=== PATIENT | female | born 1980 | race Caucasian/White ===

== ENCOUNTER 2021-05-23 09:03 | Outpatient (REF) | payer OTHER, SELFPAY ==
--- NOTE | ~2021-05-23 | XR_ITS ---
EXAMINATION: XR FOOT, RIGHT XR FOOT, LEFT CLINICAL INFORMATION: Pain. Lupus. COMPARISON: Right and left foot radiographs dated 09/09/2019. TECHNIQUE: AP, oblique, and lateral views of the right and left foot. FINDINGS: Right foot: No acute fracture or dislocation. No significant joint space narrowing. Small marginal osteophytes at the dorsal aspect of the talonavicular joint. No new osseous erosion. Tiny plantar and dorsal calcaneal enthesophytes. Left foot: No acute fracture or dislocation. No significant joint space narrowing. No marginal osteophytes. No osseous erosion. Plantar and dorsal calcaneal enthesophytes. XR/XR foot RT min 3V IMPRESSION: Right foot: No new osseous erosion. 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 Small plantar and dorsal calcaneal spurs, unchanged. Left foot: No new osseous erosion. Small plantar and dorsal calcaneal spurs, unchanged.
--- NOTE | ~2021-05-23 | XR_ITS ---
EXAMINATION: XR FOOT, RIGHT XR FOOT, LEFT CLINICAL INFORMATION: Pain. Lupus. COMPARISON: Right and left foot radiographs dated 09/09/2019. TECHNIQUE: AP, oblique, and lateral views of the right and left foot. FINDINGS: Right foot: No acute fracture or dislocation. No significant joint space narrowing. Small marginal osteophytes at the dorsal aspect of the talonavicular joint. No new osseous erosion. Tiny plantar and dorsal calcaneal enthesophytes. Left foot: No acute fracture or dislocation. No significant joint space narrowing. No marginal osteophytes. No osseous erosion. Plantar and dorsal calcaneal enthesophytes. XR/XR foot LT min 3V IMPRESSION: Right foot: No new osseous erosion. 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 Small plantar and dorsal calcaneal spurs, unchanged. Left foot: No new osseous erosion. Small plantar and dorsal calcaneal spurs, unchanged.
--- NOTE | ~2021-05-23 | XR_ITS ---
EXAMINATION: XR HAND, RIGHT XR HAND, LEFT CLINICAL INFORMATION: Right and left hand pain. Lupus. COMPARISON: Bilateral hand and wrist radiographs dated 09/09/2019. TECHNIQUE: AP, oblique, and lateral views of the right and left hand. FINDINGS: Right hand: Periarticular osteopenia is redemonstrated. No acute fracture or dislocation. Attenuation and irregularity of the ulnar styloid with a probable erosion, unchanged. Small marginal osteophytes redemonstrated at the triscaphe and 1st carpometacarpal joints with a probable degenerative cyst within the capitate, unchanged. Joint space narrowing with tiny marginal osteophytes redemonstrated throughout the metacarpophalangeal and interphalangeal joints, similar when compared to the prior examination. Flexion of the 5th proximal interphalangeal joint and extension of the 5th distal interphalangeal joint appears unchanged. No new osseous erosion. Left hand: Periarticular osteopenia is redemonstrated. No acute fracture or dislocation. Mild joint space narrowing with tiny marginal osteophytes at the triscaphe and 1st carpometacarpal joints as well as scattered throughout the metacarpophalangeal and interphalangeal joints, not significantly changed. No new osseous erosion. XR/XR hand LT 2V IMPRESSION: Right hand: No new osseous erosion. Erosion redemonstrated at the ulnar styloid. Fifth finger boutonniere deformity, unchanged. Mild degenerative arthritis at the triscaphe and 1st carpometacarpal joint as well as scattered throughout the metacarpophalangeal and interphalangeal joints, unchanged. Left hand: No new osseous erosion. Mild degenerative arthritis at the triscaphe and 1st carpometacarpal joints as well as scattered throughout the metacarpophalangeal and interphalangeal joints, unchanged.
--- NOTE | ~2021-05-23 | XR_ITS ---
EXAMINATION: XR HAND, RIGHT XR HAND, LEFT CLINICAL INFORMATION: Right and left hand pain. Lupus. COMPARISON: Bilateral hand and wrist radiographs dated 09/09/2019. TECHNIQUE: AP, oblique, and lateral views of the right and left hand. FINDINGS: Right hand: Periarticular osteopenia is redemonstrated. No acute fracture or dislocation. Attenuation and irregularity of the ulnar styloid with a probable erosion, unchanged. Small marginal osteophytes redemonstrated at the triscaphe and 1st carpometacarpal joints with a probable degenerative cyst within the capitate, unchanged. Joint space narrowing with tiny marginal osteophytes redemonstrated throughout the metacarpophalangeal and interphalangeal joints, similar when compared to the prior examination. Flexion of the 5th proximal interphalangeal joint and extension of the 5th distal interphalangeal joint appears unchanged. No new osseous erosion. Left hand: Periarticular osteopenia is redemonstrated. No acute fracture or dislocation. Mild joint space narrowing with tiny marginal osteophytes at the triscaphe and 1st carpometacarpal joints as well as scattered throughout the metacarpophalangeal and interphalangeal joints, not significantly changed. No new osseous erosion. XR/XR hand RT 2V IMPRESSION: Right hand: No new osseous erosion. Erosion redemonstrated at the ulnar styloid. Fifth finger boutonniere deformity, unchanged. Mild degenerative arthritis at the triscaphe and 1st carpometacarpal joint as well as scattered throughout the metacarpophalangeal and interphalangeal joints, unchanged. Left hand: No new osseous erosion. Mild degenerative arthritis at the triscaphe and 1st carpometacarpal joints as well as scattered throughout the metacarpophalangeal and interphalangeal joints, unchanged.
[2021-05-23 10:29] LABS: MANUAL DIFF FLAG NO
[2021-05-23 11:22] LABS: Basophils Percent Auto 0.6 % (0-2); Eosinophils Absolute Auto 0.2 X10*3/uL (0.0-0.4); Eosinophils Percent Auto 2.1 % (0-4); Hemoglobin 14.1 g/dl (12.0-16.0); Imm Gran Abs Auto 0.04 X10*3/uL (0.00-0.03); Imm Gran Pct Auto 0.6 % (0.0-0.4); Lymphocytes Absolute Auto 1.9 X10*3/uL (1.2-4.9); Mean Corpuscular HGB Conc 34.4 g/dl (31.0-35.0); Mean Corpuscular Hemoglobin 29.9 pg (27.0-33.0); Mean Corpuscular Volume 86.9 fL (80.0-98.0); Mean Platelet Volume 9.6 fL (9.4-12.3); Monocytes Absolute Auto 0.7 X10*3/uL (0.1-1.2); Monocytes Percent Auto 9.8 % (2-11); Neutrophils Absolute Auto 4.3 x10*3/uL (2.0-8.3); Neutrophils Percent Auto 60.9 % (45-73); Platelet Count 301 X10*3/uL (160-400); Red Blood Count 4.72 X10*6/uL (4.20-5.50); Red Cell Distribution Width 12.5 % (11.0-16.0); White Blood Count 7.1 X10*3/uL (4.8-10.8)
[2021-05-23 12:09] LABS: Alanine Aminotransferase 111 U/L (0-31); Alkaline Phosphatase 67 U/L (39-117); Anion Gap 13 (12-20); Aspartate Amino Transferase 45 U/L (5-31); Bilirubin Total 0.5 mg/dL (0.0-1.0); Blood Urea Nitrogen 7 mg/dL (9-16); C Reactive Protein 0.46 mg/dL (< or = 0.50); Calcium 9.8 mg/dL (8.4-10.2); Carbon Dioxide 25 mmol/L (22-29); Chloride 106 mmol/L (96-108); Estimated Glomerular Filt Rate > 60; Glucose Random 93 mg/dL (60-115); Potassium 4.1 mmol/L (3.3-5.1); Rheumatoid Factor < 15.0 IU/mL (<15.0); Sodium 140 mmol/L (135-145); Total Protein 7.8 g/dL (6.5-8.0)
[2021-05-23 12:20] LABS: Erythrocyte Sedimentation Rate 7 MM/HR (0-20)
[2021-05-25 16:56] LABS: Cyclic Citrullinated Peptide <16 UNITS
== END 2021-05-23 09:04 | disposition home or self-care (01) ==
LOC: HO.XRAY 09:03
PROVIDERS: PCP Nurse Practitioner Family; Visit Provider Internal Medicine Rheumatology
DX: M79.641 Pain in right hand (principal); M79.642 Pain in left hand; M79.671 Pain in right foot; M79.672 Pain in left foot; M25.50 Pain in unspecified joint; Z79.899 Other long term (current) drug therapy; Z87.891 Personal history of nicotine dependence
CPT/HCPCS: 36415; 73120; 73630; 80053; 85025; 85652; 86140; 86200; 86431

== ENCOUNTER → 2021-06-20 08:46 | Outpatient (BNVA) | payer OTHER, SELFPAY | PROVIDERS: PCP Nurse Practitioner Family; Visit Provider Internal Medicine Rheumatology | DX: M79.671 Pain in right foot (principal); M79.672 Pain in left foot; M19.049 Primary osteoarthritis, unspecified hand; Z79.899 Other long term (current) drug therapy | CPT/HCPCS: 99212 ==

== ENCOUNTER → 2021-09-19 08:39 | Outpatient (BNVA) | payer OTHER, SELFPAY | PROVIDERS: PCP Nurse Practitioner Family; Visit Provider Internal Medicine Rheumatology | DX: M79.671 Pain in right foot (principal); M79.672 Pain in left foot; M19.049 Primary osteoarthritis, unspecified hand; M79.2 Neuralgia and neuritis, unspecified; Z79.899 Other long term (current) drug therapy | CPT/HCPCS: 99212 ==

== ENCOUNTER 2022-01-18 12:13 | Emergency (ER) | payer OTHER, SELFPAY ==
--- NOTE | ~2022-01-18 | XR_ITS ---
EXAMINATION: XR CHEST CLINICAL INFORMATION: Chest pain. COMPARISON: 07/22/2018 chest radiograph. TECHNIQUE: Frontal view of the chest was obtained. FINDINGS: There is mild elevation of the right hemidiaphragm with mild blunting of the right costophrenic angle. The lungs are otherwise clear. The heart and mediastinal structures are unremarkable. XR/XR chest 1V IMPRESSION: Chronic bibasilar changes without significant change. No acute cardiopulmonary process.
[2022-01-18 12:18] VITALS: BP 180/73; PULSE 85; RESP 20; TEMP 36.8; O2SAT 98; BMI 31.8
--- NOTE | 2022-01-18 12:25 | ECG_ITS ---
Test Reason : Chest Pain Blood Pressure : / mmHG Vent. Rate : 076 BPM Atrial Rate : 076 BPM P-R Int : 166 ms QRS Dur : 084 ms QT Int : 410 ms P-R-T Axes : 000 003 075 degrees QTc Int : 461 ms Normal sinus rhythm Inferior infarct , age undetermined RSR' or QR pattern in V1 suggests right ventricular conduction delay Nonspecific T wave abnormality Inferior leads Abnormal ECG No previous ECGs available Referred By: Nidhi Frank Electronically Signed By:MUSTAPHA SALEEM MD
[2022-01-18 12:28] VITALS: BP 159/73; PULSE 88
[2022-01-18 12:29] VITALS: BP 160/89; PULSE 88
[2022-01-18 12:31] VITALS: BP 144/90; PULSE 100
[2022-01-18 12:32] VITALS: BP 141/90; PULSE 87; RESP 20; TEMP 37.2; O2SAT 99
[2022-01-18 12:49] LABS: MANUAL DIFF FLAG NO
[2022-01-18 12:50] LABS: Basophils Absolute Auto 0.1 X10*3/uL (0.0-0.2); Basophils Percent Auto 0.6 % (0-2); Eosinophils Absolute Auto 0.1 X10*3/uL (0.0-0.4); Eosinophils Percent Auto 1.4 % (0-4); Hematocrit 42.4 % (37.0-47.0); Hemoglobin 14.4 g/dl (12.0-16.0); Imm Gran Abs Auto 0.04 X10*3/uL (0.00-0.03); Imm Gran Pct Auto 0.5 % (0.0-0.4); Mean Corpuscular Hemoglobin 28.2 pg (27.0-33.0); Mean Platelet Volume 9.7 fL (9.4-12.3); Monocytes Absolute Auto 0.8 X10*3/uL (0.1-1.2); Monocytes Percent Auto 9.5 % (2-11); Neutrophils Absolute Auto 5.1 x10*3/uL (2.0-8.3); Platelet Count 330 X10*3/uL (160-400); Red Blood Count 5.11 X10*6/uL (4.20-5.50); Red Cell Distribution Width 12.5 % (11.0-16.0); White Blood Count 8.1 X10*3/uL (4.8-10.8)
--- NOTE | 2022-01-18 12:58 | ED.GENADULT ---
HPI - General Adult General Chief complaint: General Medical Stated complaint: Dizzy Lightheaded Sent By PCP Time Seen by Provider: 01/18/22 12:25 Source: patient Mode of arrival: ambulatory History of Present Illness HPI narrative: 41-year-old female who denies any recent medication changes and states that she has been having some lightheadedness with mild burning mid sternal chest pain/upper abdominal pain as well as headaches intermittently for the past 3 weeks but the episodes are ?getting closer?. She denies any smoking history, OCPs, recent travel, calf pain/swelling, shortness of breath, fevers/chills. In addition, she denies any urinary pain/burning/frequency. Related Data Home Medications Medication Instructions Recorded Confirmed albuterol sulfate 90 mcg/actuation 1 inh inhalation Q4-6H PRN 05/23/21 09/19/21 breath activated powder inhaler budesonide-formoterol HFA 160 2 puff inhalation BID PRN 05/23/21 09/19/21 mcg-4.5 mcg/actuation aerosol inhaler (Symbicort) ipratropium 0.5 mg-albuterol 3 mg 3 ml inhalation Q6-8H PRN 05/23/21 09/19/21 (2.5 mg base)/3 mL nebulization soln levothyroxine 75 mcg capsule 75 mcg PO DAILY 05/23/21 09/19/21 acetaminophen 500 mg tablet 1,000 mg PO TID PRN 09/19/21 09/19/21 (Tylenol Extra Strength) Previous Rx's Medication Instructions Recorded buspirone 7.5 mg tablet 7.5 mg PO TID 30 days #90 tabs 08/30/21 gabapentin 100 mg capsule 100 - 300 mg PO BEDTIME PRN pain 09/19/21 #90 caps naproxen 250 mg tablet 250 - 500 mg PO BID #120 tabs 09/19/21 bupropion HCl 150 mg 24 hr tablet, 150 mg PO QAM 90 days #90 tabs 09/26/21 extended release bupropion HCl 300 mg 24 hr tablet, 300 mg PO QAM 30 days #30 tabs 10/27/21 extended release Allergies Allergy/AdvReac Type Severity Reaction Status Date / Time bee pollen [BEE STINGS] Allergy Severe ANAPHYLAXIS Unverified 09/19/21 08:48 Review of Systems Review of Systems: Pertinent positives and negatives as stated in HPI 10 point review of systems is otherwise negative. [facility] Past Medical History Source: nursing notes reviewed Medical History Asthma Depressed Elevation of levels of liver transaminase levels Osteoarthritis, hand Social History Social History Household Members: Spouse Housing: House Do you presently have visiting nurse or other home services: No Alcohol intake: never Patient Tobacco Use Status: Former Tobacco user Tobacco use type: Cigarette Years Smoked: Quit 7 years e-Cigarette/Vaping Use: Former Use Advance Directives: No Advance Directives Information Provided: Yes service: No Current occupational status: employed Current occupation: [employer] Physical Exam ED Vital Signs: Vital Signs - 24 hr 01/18/22 12:18 01/18/22 12:28 01/18/22 12:29 Temperature 98.2 F Pulse Rate 85 88 88 Respiratory Rate 20 Blood Pressure 180/73 H 159/73 H 160/89 H Pulse Oximetry 98 Oxygen Delivery Method Room Air 01/18/22 12:31 01/18/22 12:32 01/18/22 14:08 Temperature 98.9 F 98.8 F Pulse Rate 100 87 78 Respiratory Rate 20 20 Blood Pressure 144/90 H 141/90 H 140/85 H Pulse Oximetry 99 99 Oxygen Delivery Method Room Air Room Air BMI result Body Mass Index 31.8 VITAL SIGNS: Reviewed. GENERAL: Well developed, well nourished, in no acute distress. HEAD: Normocephalic/atraumatic EYES: PERRLA, EOMI EARS: Ext canals without abnormality OROPHARYNX: no oral lesions noted, posterior pharynx clear LUNGS: Normal breath sounds, no tachypnea/wheeze/rhonchi/rales. No adventitious sounds or accessory muscle use. SpO2<99> CARDIOVASCULAR: Regular rate and rhythm without noted murmurs ABDOMEN: Soft, non-tender, non-distended with bowel sounds. MUSCULOSKELETAL: No tenderness, deformities, or effusions noted on gross inspection. EXTREMITIES: No cyanosis, clubbing or edema. SKIN: Inspection of the skin reveals no rashes NEUROLOGIC: Alert and oriented x 4. Strength and sensation to light touch were grossly intact x 4. Course Course Course Narrative: 41-year-old female with history and clinical presentation most suspicious for possible GERD/acid reflux but will obtain basic labs/orthostatics/EKG. Patient is otherwise PERC negative. Review of all investigations otherwise negative for acute findings and suspect patient may have been mildly dehydrated for unknown reasons, no evidence to suggest cardiac ischemia, pneumonia and on re-evaluation patient is feeling better. She was instructed to follow-up with her primary care provider. Medications Administered Discontinued Medications Generic Name Dose Route Start Last Admin Trade Name Freq PRN Reason Stop Dose Admin Sodium Chloride 1,000 mls @ 999 mls/hr 01/18/22 13:15 01/18/22 13:15 Ns IV 01/18/22 14:15 999 mls/hr .Q1H1M CORNELIUS Administration Medical Decision Making Lab Data Result diagrams: 01/18/22 12:43 01/18/22 13:15 Labs: Lab Results 01/18/22 01/18/22 01/18/22 Range/Units 12:43 12:43 13:15 WBC 8.1 (4.8-10.8) X10*3/uL RBC 5.11 (4.20-5.50) X10*6/uL Hgb 14.4 (12.0-16.0) g/dl Hct 42.4 (37.0-47.0) % MCV 83.0 (80.0-98.0) fL MCH 28.2 (27.0-33.0) pg MCHC 34.0 (31.0-35.0) g/dl RDW 12.5 (11.0-16.0) % Plt Count 330 (160-400) X10*3/uL MPV 9.7 (9.4-12.3) fL Immature Gran % (Auto) 0.5 H (0.0-0.4) % Neut % (Auto) 63.0 (45-73) % Lymph % (Auto) 25.0 (20-40) % Villalba % (Auto) 9.5 (2-11) % Eos % (Auto) 1.4 (0-4) % Baso % (Auto) 0.6 (0-2) % Lymph # (Auto) 2.0 (1.2-4.9) X10*3/uL Villalba # (Auto) 0.8 (0.1-1.2) X10*3/uL Eos # (Auto) 0.1 (0.0-0.4) X10*3/uL Baso # (Auto) 0.1 (0.0-0.2) X10*3/uL Abs Immat Gran (auto) 0.04 H (0.00-0.03) X10*3/uL Absolute Neuts (auto) 5.1 (2.0-8.3) x10*3/uL Absolute Nucleated RBC 0.000 (0.0-0.012) X10*3/uL Nucleated RBC % (auto) 0.0 (0.0-0.2) /100WBC Sodium 141 (135-145) mmol/L Potassium 3.9 (3.3-5.1) mmol/L Chloride 106 (96-108) mmol/L Carbon Dioxide 23 (22-29) mmol/L Anion Gap 16 (12-20) BUN 11 D (9-16) mg/dL Creatinine 0.83 (0.5-1.4) mg/dL Estim Creat Clear Calc 92.1 Estimated GFR > 60 Random Glucose 85 (60-115) mg/dL Calcium 9.7 (8.4-10.2) mg/dL Total Bilirubin 0.5 (0.0-1.0) mg/dL AST 16 D (5-31) U/L ALT 23 (0-31) U/L Alkaline Phosphatase 59 (39-117) U/L Troponin I High Sens < 3.5 (<3.5-17.0) ng/L Total Protein 7.8 (6.5-8.0) g/dL Albumin 5.1 H (3.5-5.0) g/dL Urine Color Urine Appearance Urine pH (5.0-9.0) Ur Specific Vernal (1.005-1.025) Urine Protein (Neg-Trace) mg/dL Urine Glucose (UA) (Negative) mg/dL Urine Ketones (Negative) mg/dL Urine Blood (Negative) Urine Nitrite (Negative) Ur Leukocyte Esterase (Negative) Urine RBC (0-2) /HPF Urine WBC (0-5) /HPF Ur Squamous Epith Cells (0-2) /HPF Urine Bacteria (None Seen) Hyaline Casts (0-2) /LPF 01/18/22 Range/Units 14:13 WBC (4.8-10.8) X10*3/uL RBC (4.20-5.50) X10*6/uL Hgb (12.0-16.0) g/dl Hct (37.0-47.0) % MCV (80.0-98.0) fL MCH (27.0-33.0) pg MCHC (31.0-35.0) g/dl RDW (11.0-16.0) % Plt Count (160-400) X10*3/uL MPV (9.4-12.3) fL Immature Gran % (Auto) (0.0-0.4) % Neut % (Auto) (45-73) % Lymph % (Auto) (20-40) % Villalba % (Auto) (2-11) % Eos % (Auto) (0-4) % Baso % (Auto) (0-2) % Lymph # (Auto) (1.2-4.9) X10*3/uL Villalba # (Auto) (0.1-1.2) X10*3/uL Eos # (Auto) (0.0-0.4) X10*3/uL Baso # (Auto) (0.0-0.2) X10*3/uL Abs Immat Gran (auto) (0.00-0.03) X10*3/uL Absolute Neuts (auto) (2.0-8.3) x10*3/uL Absolute Nucleated RBC (0.0-0.012) X10*3/uL Nucleated RBC % (auto) (0.0-0.2) /100WBC Sodium (135-145) mmol/L Potassium (3.3-5.1) mmol/L Chloride (96-108) mmol/L Carbon Dioxide (22-29) mmol/L Anion Gap (12-20) BUN (9-16) mg/dL Creatinine (0.5-1.4) mg/dL Estim Creat Clear Calc Estimated GFR Random Glucose (60-115) mg/dL Calcium (8.4-10.2) mg/dL Total Bilirubin (0.0-1.0) mg/dL AST (5-31) U/L ALT (0-31) U/L Alkaline Phosphatase (39-117) U/L Troponin I High Sens (<3.5-17.0) ng/L Total Protein (6.5-8.0) g/dL Albumin (3.5-5.0) g/dL Urine Color Yellow Urine Appearance Clear Urine pH 6.5 (5.0-9.0) Ur Specific Vernal 1.010 (1.005-1.025) Urine Protein Negative (Neg-Trace) mg/dL Urine Glucose (UA) Negative (Negative) mg/dL Urine Ketones Negative (Negative) mg/dL Urine Blood Negative (Negative) Urine Nitrite Negative (Negative) Ur Leukocyte Esterase Small (1+) H (Negative) Urine RBC 3-5 H (0-2) /HPF Urine WBC 0-5 (0-5) /HPF Ur Squamous Epith Cells 0-2 (0-2) /HPF Urine Bacteria None Seen (None Seen) Hyaline Casts 0-2 (0-2) /LPF ECG Data Attestation: I personally reviewed and interpreted this ECG as follows: Prior ECG tracings: not available for review Interpretation: Sinus rhythm, HR-76, no STEMI, VT/QRS/QTC are within normal limits. Discharge Plan Discharge Clinical Impression: Atypical chest pain, Acid reflux Patient Disposition: Home, Self-Care Instructions: Diet for Stomach Ulcers and Gastritis (ED), Indigestion (ED), Gastroesophageal Reflux Disease (ED) Additional Instructions: 1. Resume all home medications as prescribed. 2. Please review dietary recommendations as listed in your discharge informational packet. 3. Recommend initiating [id number] acid reduction medication. 4. Follow-up with your primary care provider in the next 1-2 days for re-evaluation further outpatient management. Return to the ER for worsening symptoms. Prescriptions: No Action buspirone 7.5 mg tablet 7.5 mg PO TID 30 Days Qty: 90 1RF bupropion HCl 150 mg tablet extended release 24 hr 150 mg PO QAM 90 Days Qty: 90 0RF bupropion HCl 300 mg tablet extended release 24 hr 300 mg PO QAM 30 Days Qty: 30 2RF levothyroxine 75 mcg capsule 75 mcg PO DAILY albuterol sulfate 90 mcg/actuation aerosol powdr breath activated 1 inh inhalation Q4-6H PRN budesonide-formoterol [Symbicort] 160-4.5 mcg/actuation HFA aerosol inhaler 2 puff inhalation BID PRN ipratropium-albuterol 0.5 mg-3 mg(2.5 mg base)/3 mL solution for nebulization 3 ml inhalation Q6-8H PRN acetaminophen [Tylenol Extra Strength] 500 mg tablet 1,000 mg PO TID PRN naproxen 250 mg tablet 250 - 500 mg PO BID Qty: 120 4RF Rx Instructions: 1-2 tab twice a day with food gabapentin 100 mg capsule 100 - 300 mg PO BEDTIME PRN (Reason: pain) Qty: 90 4RF
[2022-01-18 13:13] LABS: Troponin-I High Sensitivity < 3.5 ng/L (<3.5-17.0)
[2022-01-18] MEDS: 0.9 % Sodium Chloride 1,000 ML 999 ML IV (13:15)
[2022-01-18 13:42] LABS: Alanine Aminotransferase 23 U/L (0-31); Albumin Level 5.1 g/dL (3.5-5.0); Alkaline Phosphatase 59 U/L (39-117); Anion Gap 16 (12-20); Aspartate Amino Transferase 16 U/L (5-31); Bilirubin Total 0.5 mg/dL (0.0-1.0); Blood Urea Nitrogen 11 mg/dL (9-16); Calcium 9.7 mg/dL (8.4-10.2); Carbon Dioxide 23 mmol/L (22-29); Chloride 106 mmol/L (96-108); Creatinine Clr Calc Pharmacy 92.1; Estimated Glomerular Filt Rate > 60; Glucose Random 85 mg/dL (60-115); Potassium 3.9 mmol/L (3.3-5.1); Sodium 141 mmol/L (135-145); Total Protein 7.8 g/dL (6.5-8.0)
[2022-01-18 14:08] VITALS: BP 140/85; PULSE 78; RESP 20; TEMP 37.1; O2SAT 99
[2022-01-18 14:23] LABS: Appearance Urine Clear; Color Urine Yellow; Glucose Urine UA Negative (Negative); Leukocyte Esterase Urine Small (1+) (Negative); Nitrite Urine Negative (Negative); PH 6.5 (5.0-9.0); UMIC TRIGGER UACC YES; Urine Blood Negative (Negative); Urine Ketones Negative (Negative); Urine Protein Negative (Neg-Trace)
[2022-01-18 14:36] LABS: Bacteria Urine None Seen (None Seen); Hyaline Casts Urine 0-2 /LPF (0-2); Squamous Epithelial Cell Urine 0-2 /HPF (0-2); UACC Culture Trigger YES; WBC Urine 0-5 /HPF (0-5)
== END 2022-01-18 15:10 | disposition home or self-care (01) ==
PROVIDERS: Emergency Provider Student in an Organized Health Care Education/Training Program; PCP Nurse Practitioner Family
DX: K21.9 Gastro-esophageal reflux disease without esophagitis (principal); R07.89 Other chest pain; R42 Dizziness and giddiness; R10.10 Upper abdominal pain, unspecified; Z87.891 Personal history of nicotine dependence; Z79.899 Other long term (current) drug therapy
CPT/HCPCS: 36415; 71045; 80053; 81001; 84484; 85025; 87086; 93005; 99283; 99284

== ENCOUNTER → 2022-02-22 08:39 | Outpatient (BNVA) | payer OTHER, SELFPAY | PROVIDERS: PCP Nurse Practitioner Family; Visit Provider Internal Medicine Rheumatology | DX: M19.041 Primary osteoarthritis, right hand (principal); M19.042 Primary osteoarthritis, left hand; M65.9 Synovitis and tenosynovitis, unspecified; M79.2 Neuralgia and neuritis, unspecified; Z79.1 Long term (current) use of non-steroidal anti-inflammatories (NSAID) | CPT/HCPCS: 99212 ==

== ENCOUNTER 2022-09-14 09:12 | Outpatient (AMB) | payer OTHER, SELFPAY ==
[2022-09-14 09:24] VITALS: BP 134/80; PULSE 67; RESP 12; TEMP 36.4; O2SAT 99; BMI 30.7
--- NOTE | 2022-09-14 09:24 | MHC.PC.OV ---
Vital Signs 09/14/22 09:24 Height 5 ft 3 in Weight 173 lb 6 oz BMI 30.7 BP 134/80 Blood Pressure Location Lt brachial Position Sitting Respiration 12 Pulse 67 Pulse Source Pulse Oximeter Temp 97.6 F Temp Source Temporal Artery Scan Pulse Oximetry (%) 99 Oxygen Delivery Method Room Air Intake Visit Reasons: PE, [facility] Manager Generation Required: No Accompanied by: Self / Same As Patient Allergies bee pollen [BEE STINGS] Allergy (Severe, Verified 09/14/22 09:56) ANAPHYLAXIS animal dander Allergy (Intermediate, Verified 09/14/22 09:56) Cough Medication List - Last Reconciled 09/14/22 by Guillaume Sadler CNP acetaminophen (Tylenol Extra Strength) 1,000 mg PO TID PRN albuterol sulfate 90 mcg/actuation 1 inh inhalation Q4-6H PRN benralizumab (Fasenra Pen) mg subcut budesonide-formoterol 160-4.5 mcg/actuation (Symbicort) 2 puffs inhalation BID PRN bupropion HCl 150 mg PO QAM bupropion HCl 300 mg PO QAM 30 days buspirone 7.5 mg PO TID 30 days gabapentin one in AM and 3 at night; ipratropium-albuterol 0.5 mg-3 mg(2.5 mg base)/3 mL 3 mL inhalation Q6-8H PRN levothyroxine 75 mcg PO DAILY montelukast 10 mg PO DAILY naproxen 250 - 500 mg (1 - 2 x 250 mg) PO BID tiotropium bromide 1.25 mcg/actuation (Spiriva Respimat) 2 puffs inhalation DAILY Tobacco use date assessed: 09/14/22 Dental Screening Dental Screen Date: 09/14/22 Did you have a dental visit in the last 12 months?: Yes Did you have a dental problem in the last 6 months where you did not have access to dental care?: No Was dental information given to patient?: Patient has dentist HPI HPI Comments History of Present Illness Details 42-year-old female presents to [facility]. She is a transfer from [facility] whom she notes she last saw 3 years ago. She has PMH significant for asthma, hypothyroidism, anxiety, and depression. She is on Bupropion and Buspirone with some improvements of her anxiety and depression symptoms. She reports frequent anxiety. She notes that she recently started running on the treadmill and walking her dog. She reports painless lumps to her right bicep and forearm, and lump to left jimenez which is tender to palpation. The lumps have been present for several years and increase in size. She was followed by a therapist but has not had a therapist for the past 1 year. She is followed by pulmonology. Her last visit was 1 month ago. No acute symptoms today. [facility] Medical History Asthma Depressed Elevation of levels of liver transaminase levels Laceration of liver Osteoarthritis, hand Surgical History (Updated 09/14/22 @ 09:38 by Madia Garcia MA) Previous section Family History Mother Cirrhosis of liver Paternal Grandfather Pre-diabetes Social History Household Members: Spouse Housing: House Do you presently have visiting nurse or other home services: No 75 years or older and lives alone: No Alcohol intake: never Patient Tobacco Use Status: Former Tobacco user Tobacco use type: Cigarette Years Smoked: Quit 10 years e-Cigarette/Vaping Use: Former Use service: No Current occupational status: employed 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 1. Little interest or pleasure in doing things: more than half the days 2. Feeling down, depressed, or hopeless: more than half the days 3. Trouble falling or staying asleep, or sleeping too much: several days 4. Feeling tired or having little energy: nearly every day 5. Poor appetite or overeating: nearly every day 6. Feeling bad about yourself - or that you are a failure or have let yourself or your family down: more than half the days 7. Trouble concentrating on things, such as reading the newspaper or watching television: more than half the days 8. Moving or speaking so slowly that other people could have noticed. Or the opposite - being so fidgety or restless that you have been moving around a lot more than usual: more than half the days 9. Thoughts that you would be better off or of hurting yourself in some way: not at all Total score: 17 Depression Screening Interpretation: Positive Depression Screening Follow-up: Existing condition and In treatment Source: Developed by Drs. Anish Alex, Ashleigh Dow, Jeremy Davis and colleagues, with an educational diego from [employer]. Thrive Questionnaire Date Thrive assessed: 09/14/22 I am a: Patient What is your living situation today?: I have a steady place to live Within the past 12 months, did the food you bought not last and you didn't have the money to get more?: Never true Within the past 12 months, did you worry whether your food would run out before you got money to buy more?: Never true Do you have trouble paying for medicines?: No Do you have trouble getting transportation to medical appointments?: No Do you have trouble paying your heating and electricity bill?: No Do you have trouble taking care of your child, family member or friend?: No Do you have trouble with day-to-day activities such as bathing, preparing meals, shopping, managing finances, etc.?: No Are you currently unemployed and looking for a job?: No Are you interested in more education?: Yes Please select the resources that you would like help with: Education Currently or been in a relationship where the following occur: no concerns reported AUDIT C Alcohol Use Questionnaire (AUDIT-C) 1. How often do you have a drink containing alcohol?: Monthly or less 2. How many drinks containing alcohol do you have on a typical day when you are drinking?: 1 or 2 3. How often do you have six or more drinks on one occasion?: Never Total Score: 1 KARLI-7 AMB Questionnaire KARLI-7 Date KARLI - 7 assessed: 09/14/22 Feeling nervous, anxious, or on edge: 2 = More than half the days Not being able to stop or control worryin = More than half the days Worrying too much about different things: 2 = More than half the days Trouble relaxin = More than half the days Being so restless that it is hard to sit still: 2 = More than half the days Becoming easily annoyed or irritable: 2 = More than half the days Feeling afraid as if something awful might happen: 2 = More than half the days Total KARLI-7 score (0-4 normal; 5-9 mild; 10-14 moderate; 15-21 severe): 14 Source: Developed by Drs. Anish Alex, Ashleigh Dow, Jeremy Davis and colleagues, with an educational diego from [employer]. ACT Questionnaire In the past 4 weeks, how much of the time did your asthma keep you from getting as much done at work, school or at home?: Some of the time During the past 4 weeks, how often have you had shortness of breath?: 3-6 times a week During the past 4 weeks, how often did your asthma symptoms wake you up at night or earlier than usual in the morning?: 2-3 nights a week During the past 4 weeks, how often have you had to use your rescue inhaler or nebulizer medication?: More than 3 times per day How would you rate your asthma control during the past 4 weeks?: Somewhat controlled Score: 12 Review of Systems Const Details: Const Denies chills, Denies fatigue, Denies fever(s), Denies headache(s) and Denies weakness ENT Denies dizziness and Denies headache(s) Card Denies chest pain, Denies lightheadedness, Denies dyspnea and Denies other (Palpitations) Resp Denies cough, Denies dyspnea, Denies wheezing and Denies other ( shortness of breath) GI Denies abdominal pain, Denies melena, Denies hematochezia, Denies change in bowel habits, Denies dyspepsia and Denies nausea Denies hematuria and Denies dysuria Musc Denies abnormal gait, Denies myalgias, Denies arthralgias, Denies numbness and Denies tingling Skin/Breast Reports lumps to her right bicep and forearm and left jimenez, Denies rash, Denies unusual bruising and Denies wounds Neuro Denies abnormal gait, Denies dizziness, Denies headache(s), Denies memory loss, Denies numbness, Denies Sensory deficit (Neuro), Denies tingling and Denies weakness Psych Reports anxiety and Reports depression, Denies memory loss Endo Denies cold intolerance, Denies fatigue, Denies heat intolerance, Denies polydipsia and Denies polyuria Aller/Immun Denies wheezing Physical exam (Primary Care) Vital Signs: Last Vital Signs Temp 97.6 F 09/14/22 09:24 Pulse 67 09/14/22 09:24 Resp 12 09/14/22 09:24 BP 134/80 09/14/22 09:24 Pulse Ox 99 09/14/22 09:24 Oxygen Delivery Method Room Air 09/14/22 09:24 BMI result Body Mass Index 30.7 Tobacco/Smoking Status: Tobacco use Status Tobacco use date assessed 09/14/22 09/14/22 09:47 Patient Tobacco Use Status Former Tobacco user 09/14/22 09:47 Tobacco use type Cigarette 09/14/22 09:47 e-Cigarette/Vaping Use Former Use 09/14/22 09:47 PHQ-9: PHQ-9 Score PHQ-9: Total score 17 09/14/22 17:23 Depression Screening Interpretation: Positive Depression Screening Follow-up: Existing condition and In treatment Thrive Assessment: Date of Thrive Assessment Date Thrive assessed 09/14/22 09/14/22 09:47 Currently or been in a relationship where the following occur: no concerns reported Const Other: General: no acute distress and well developed Nutritional Appearance: well nourished Orientation/consciousness: patient oriented x3 HENMT Head: Yes normocephalic and Yes atraumatic Eyes General: appearance normal, both eyes and all related structures Pupils: Equal, round and reactive pupils present EOM: EOMs intact bilaterally Resp Effort & Inspection: normal respiratory effort Auscultation: clear to auscultation bilaterally Cardio Rate: regular rate Rhythm: regular rhythm Heart sounds: S1 normal heart sound present, S2 normal heart sound present, no gallops, no murmurs and no rubs GI Palpation (GI): No Abdominal aortic bruit present, Soft to palpation, nontender, No hepatosplenomegaly present and No Rebound tenderness present Auscultation: normal bowel sounds General: Yes no CVA tenderness Back/Spine/Pelvis Back: no CVA tenderness Cervical Spine: cervical ROM normal and No Cervical spine tenderness Thoracic/Lumbar Spine: thoraco-lumbar ROM normal, No pain with thoraco-lumbar ROM, No thoracic spinal tenderness and No lumbar spinal tenderness Extrem General: Yes normal to inspection, No edema and No calf tenderness Skin General: warm and dry. Normal skin color. Normal skin turgor Lesions: painless lumps to right biceps and forearm and tender lump to left jimenez Rashes: no rashes Trauma: no lacerations or abrasions Wounds: no wounds Nails: normal Neuro General: patient oriented x3, gait normal and no focal neuro deficit Cranial nerves: Yes Equal, round and reactive pupils present Cognition (Neuro): normal cognition Gait exam (Neuro): Normal gait present Motor exam (neuro): 5/5 motor strength present throughout Sensory Exam: No Sensory deficit (Neuro) Psych Appearance: grossly normal Affect: normal affect Attitude: cooperative Thought process: Normal thought process present Assessment and Plan Assessment & Plan (1) Asthma: Code(s): J45.909 - Unspecified asthma, uncomplicated Plan: Her ACT score is 12 and indicates poorly control asthma Asthma inhalers and montelukast as prescribed Continue follow-up with pulmonology as planned Return with worsening or new symptoms Verbalized understanding and agreed with treatment plan. (2) Anxiety and depression: Code(s): F41.9 - Anxiety disorder, unspecified; F32.A - Depression, unspecified Plan: PHQ-9 and KARLI-7 scores revealed moderately severe depression and moderate anxiety Will increase buspirone to 15 mg twice daily. Take as prescribed Bupropion as prescribed Declined therapy Encouraged to inform her PCP if she changes her mind or therapy Routine exercise encouraged Follow-up in 1 month or return sooner with worsening or new symptoms Verbalized understanding and agreed with treatment plan (3) Hypothyroid: Code(s): E03.9 - Hypothyroidism, unspecified Plan: She had normal TSH level in 2020 Labs ordered. Encouraged to get blood work done before next visit Will review results and make changes to her care plan if warranted Verbalized understanding and agreed with treatment plan. (4) Laboratory tests ordered as part of a complete physical exam (CPE): Code(s): Z00.00 - Encounter for general adult medical examination without abnormal findings Plan: Fasting labs ordered as part of a complete physical exam. Advised to fast for at least 10 hours before getting labs drawn. May drink water Verbalized understanding and agreed with treatment plan. (5) Lumps on the skin: Code(s): R22.9 - Localized swelling, mass and lump, unspecified Plan: Reports lumps to her right bicep and forearm and left jimenez Painless lumps to right biceps and forearm and tender lump to left jimenez Orders: Orders Comprehensive [place]. Panel Fast 09/14/22 Z00.00 - Encounter for general adult medical examination without abnormal findings Lipid Panel 09/14/22 Z. - Encounter for general adult medical examination without abnormal findings TSH reflex Free T4 09/14/22 E03.9 - Hypothyroidism, unspecified, Z. - Encounter for general adult medical examination without abnormal findings Complete Blood Count Auto Diff 09/14/22 Z. - Encounter for general adult medical examination without abnormal findings UA CC w/rflx Micro + Cult 09/14/22 Z. - Encounter for general adult medical examination without abnormal findings Medications: New buspirone 15 mg PO BID 30 days 60 tabs 3RF Discontinued buspirone Future refills from new PCP Discontinued Reason: Doctor's Order 7.5 mg PO TID 30 days 90 tabs 1RF Coding Level of Care Code Est Pt Level 4 (71752) Diagnoses Asthma J45.909 Anxiety and depression F41.9; F32.A Hypothyroid E03.9 Laboratory tests ordered as part of a complete physical exam (CPE) Z00. Lumps on the skin R22.9 Time Spent (min) 35
== END 2022-09-14 10:36 | disposition home or self-care (01) ==
PROVIDERS: PCP Nurse Practitioner Family; Visit Provider Nurse Practitioner Family
DX: J45.909 Unspecified asthma, uncomplicated (principal); F41.9 Anxiety disorder, unspecified; F32.A Depression, unspecified; E03.9 Hypothyroidism, unspecified; Z00.00 Encounter for general adult medical examination without abnormal findings; R22.9 Localized swelling, mass and lump, unspecified
CPT/HCPCS: 99214

== ENCOUNTER 2023-09-28 16:56 | Outpatient (AMB) | payer OTHER, SELFPAY ==
--- NOTE | 2023-09-28 16:58 | A.OFFPC_ITS ---
Vital Signs 09/28/23 17:00 Height 5 ft 3 in Weight 136 lb 4 oz BMI 24.1 BP 130/70 Blood Pressure Location Rt brachial Position Sitting Respiration 18 Pulse 77 Pulse Source Pulse Oximeter Temp 98.3 F Pulse Oximetry (%) 99 Oxygen Delivery Method Room Air Intake Visit Reasons: Possible Infection Intake Note: Patient is here to follow up on Possible Infection. Hand, feet, mouth disease, and bot fly eggs in her nose. Senior Project Controls Specialist Required: No Hypoid Gear Generator: Not Required per policy Accompanied by: Self / Same As Patient Allergies bee pollen [BEE STINGS] Allergy (Severe, Verified 09/28/23 16:59) ANAPHYLAXIS animal dander Allergy (Intermediate, Verified 09/28/23 16:59) Cough Tobacco use date assessed: 09/28/23 Dental Screening Dental Screen Date: 09/28/23 Did you have a dental visit in the last 12 months?: Yes Did you have a dental problem in the last 6 months where you did not have access to dental care?: No Was dental information given to patient?: Patient has dentist HPI HPI Comments History of Present Illness Details 43-year-old female presents with complai nts of nasal congestion and bloody secretion with what she believes are wings from botflies. She notes subjective fever. Her symptoms of been ongoing for the past 2 weeks and have progressively worsened. She has been using saline rinse. She admits to snorting cocaine twice monthly. She denies headache, difficulty breathing, chest pain, chills, body aches. [facility] Medical History Asthma Depressed Elevation of levels of liver transaminase levels Laceration of liver Osteoarthritis, hand Surgical History Previous section Family History Mother Cirrhosis of liver Paternal Grandfather Pre-diabetes Social History Household Members: Spouse Housing: House Do you presently have visiting nurse or other home services: No 75 years or older and lives alone: No Alcohol intake: never Patient Tobacco Use Status: Former Tobacco user Tobacco use type: Cigarette Years Smoked: Quit 10 years e-Cigarette/Vaping Use: Former Use service: No Current occupational status: employed 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 1. Little interest or pleasure in doing things: not at all 2. Feeling down, depressed, or hopeless: not at all 3. Trouble falling or staying asleep, or sleeping too much: not at all 4. Feeling tired or having little energy: not at all 5. Poor appetite or overeating: not at all 6. Feeling bad about yourself - or that you are a failure or have let yourself or your family down: not at all 7. Trouble concentrating on things, such as reading the newspaper or watching television: not at all 8. Moving or speaking so slowly that other people could have noticed. Or the opposite - being so fidgety or restless that you have been moving around a lot more than usual: not at all 9. Thoughts that you would be better off or of hurting yourself in some way: not at all Total score: 0 Depression Screening Interpretation: Negative Depression Screening Done: Yes Source: Developed by Drs. Anish Alex, Ashleigh Dow, Jeremy Davis and colleagues, with an educational diego from [employer]. Thrive Questionnaire Date Thrive assessed: 09/28/23 I am a: Patient What is your living situation today?: I have a steady place to live Within the past 12 months, did the food you bought not last and you didn't have the money to get more?: Never true Within the past 12 months, did you worry whether your food would run out before you got money to buy more?: Never true Do you have trouble paying for medicines?: No Do you have trouble getting transportation to medical appointments?: No Do you have trouble paying your heating and electricity bill?: No Do you have trouble taking care of your child, family member or friend?: No Do you have trouble with day-to-day activities such as bathing, preparing meals, shopping, managing finances, etc.?: No Are you currently unemployed and looking for a job?: No Are you interested in more education?: No Currently or been in a relationship where the following occur: No concerns reported THRIVE Score: 0 AUDIT C Alcohol Use Questionnaire (AUDIT-C) 1. How often do you have a drink containing alcohol?: Monthly or less 2. How many drinks containing alcohol do you have on a typical day when you are drinking?: 1 or 2 Total Score: 1 KARLI-7 AMB Questionnaire KARLI-7 Date KARLI - 7 assessed: 09/28/23 Feeling nervous, anxious, or on edge: 0 = Not at all Not being able to stop or control worryin = Not at all Worrying too much about different things: 0 = Not at all Trouble relaxin = Not at all Being so restless that it is hard to sit still: 0 = Not at all Becoming easily annoyed or irritable: 0 = Not at all Feeling afraid as if something awful might happen: 0 = Not at all Total KARLI-7 score (0-4 normal; 5-9 mild; 10-14 moderate; 15-21 severe): 0 Source: Developed by Drs. Anish Alex, Ashleigh Dow, Jeremy Davis and colleagues, with an educational diego from [employer]. Review of Systems Const Details: Const Denies chills, Denies fatigue, Denies fever(s), Denies headache(s) and Denies weakness ENT Reports as per HPI Card Denies chest pain, Denies lightheadedness, Denies dyspnea and Denies other (Palpitations) Resp Denies cough, Denies dyspnea, Denies wheezing and Denies other ( shortness of breath) GI Denies abdominal pain, Denies melena, Denies hematochezia, Denies change in bowel habits, Denies dyspepsia and Denies nausea Denies hematuria and Denies dysuria Musc Denies abnormal gait, Denies myalgias, Denies arthralgias, Denies numbness and Denies tingling Skin/Breast Denies rash, Denies unusual bruising and Denies wounds Neuro Denies abnormal gait, Denies dizziness, Denies headache(s), Denies memory loss, Denies numbness, Denies Sensory deficit (Neuro), Denies tingling and Denies weakness Psych Denies anxiety, Denies depression, Denies memory loss Endo Denies cold intolerance, Denies fatigue, Denies heat intolerance, Denies polydipsia and Denies polyuria Aller/Immun Denies wheezing Physical exam (Primary Care) BMI result Body Mass Index 24.1 Tobacco/Smoking Status: Tobacco use Status Tobacco use date assessed 09/14/22 09/14/22 09:47 Patient Tobacco Use Status Former Tobacco user 09/14/22 09:47 Tobacco use type Cigarette 09/14/22 09:47 e-Cigarette/Vaping Use Former Use 09/14/22 09:47 Depression Screening Interpretation: Negative Thrive Assessment: Date of Thrive Assessment Date Thrive assessed 09/14/22 09/14/22 09:47 Currently or been in a relationship where the following occur: No concerns reported Const Other: General: no acute distress and well developed Nutritional Appearance: well nourished Orientation/consciousness: patient oriented x3 HENMT Head is normocephalic Bilateral ear canal and TM are normal Nasal passage and turbinates with significant inflammation and scant bleeding and old dried blood; septum appears intact; no bugs or wings noted Oropharynx is normal Sinuses are nontender with palpation No auricular or cervical lymphadenopathy Eyes General: appearance normal, both eyes and all related structures Pupils: Equal, round and reactive pupils present EOM: EOMs intact bilaterally Resp Effort & Inspection: normal respiratory effort Auscultation: clear to auscultation bilaterally Cardio Rate: regular rate Rhythm: regular rhythm Heart sounds: S1 normal heart sound present, S2 normal heart sound present, no gallops, no murmurs and no rubs GI Palpation (GI): No Abdominal aortic bruit present, Soft to palpation, nontender, No hepatosplenomegaly present and No Rebound tenderness present Auscultation: normal bowel sounds General: Yes no CVA tenderness Back/Spine/Pelvis Back: no CVA tenderness Cervical Spine: cervical ROM normal and No Cervical spine tenderness Thoracic/Lumbar Spine: thoraco-lumbar ROM normal, No pain with thoraco-lumbar ROM, No thoracic spinal tenderness and No lumbar spinal tenderness Extrem General: Yes normal to inspection, No edema and No calf tenderness Skin General: warm and dry. Normal skin color. Normal skin turgor Neuro General: patient oriented x3, gait normal and no focal neuro deficit Cranial nerves: Yes Equal, round and reactive pupils present Cognition (Neuro): normal cognition Gait exam (Neuro): Normal gait present Sensory Exam: No Sensory deficit (Neuro) Psych Appearance: grossly normal Affect: normal affect Attitude: cooperative Thought process: Normal thought process present Assessment and Plan Assessment & Plan (1) Nasal inflammation: Code(s): J31.0 - Chronic rhinitis Plan: Patient presents with nasal congestion and bloody secretion with what she believes are wings from botflies. She reports associated subjective fever. Her symptoms have been ongoing for the past 2 weeks and have progressively worsened. Nasal passage and turbinates with significant inflammation and scant bleeding and old dried blood; septum appears intact; no bugs or wings noted She is afebrile at this time Nasal inflammation and possibly infection may be attributed to cocaine inhalation. Encouraged to abstain from snorting cocaine. Cephalexin 500 mg twice daily for 10 days ordered. Advised to take as prescribed. Instructed on the risks, benefits, and potential adverse reactions of the medication. Continue to use saline rinse as needed. Urgent ENT referral made. Advised to schedule an extended physical exam in 1 month in a short to get fasting blood work done a few days before her appointment Return with worsening or new signs and symptoms Verbalized understanding and agreed with the treatment plan (2) Laboratory tests ordered as part of a complete physical exam (CPE): Code(s): Z00.00 - Encounter for general adult medical examination without abnormal findings Plan: Fasting labs ordered in preparation of a complete physical exam. Advised to fast for at least 10 hours before getting labs drawn. May drink water Verbalized understanding and agreed with treatment plan. Orders: Orders Complete Blood Count Auto Diff Today Z00.00 - Encounter for general adult medical examination without abnormal findings Comprehensive [place]. Panel Fast Today Z00.00 - Encounter for general adult medical examination without abnormal findings Lipid Panel Today Z00.00 - Encounter for general adult medical examination without abnormal findings UA CC w/rflx Micro + Cult Today Z00.00 - Encounter for general adult medical examination without abnormal findings Microalbumin, Random (w Creat) Today Z00.00 - Encounter for general adult medi irma examination without abnormal findings TSH reflex Free T4 Today Z00.00 - Encounter for general adult medical examination without abnormal findings Referrals Ear/Nose/Throat Referral J31.0 - Chronic rhinitis Medications: New cephalexin 500 mg PO Q12H 10 days 20 tabs 0RF Coding Level of Care Code Est Pt Level 4 (94882) Complex EM visit Add On G2211 Diagnoses Nasal inflammation J31.0 Laboratory tests ordered as part of a complete physical exam (CPE) Z00.00
[2023-09-28 17:00] VITALS: BP 130/70; PULSE 77; RESP 18; TEMP 36.8; O2SAT 99; BMI 24.1
== END 2023-09-28 17:05 | disposition home or self-care (01) ==
PROVIDERS: PCP Nurse Practitioner Family; Visit Provider Nurse Practitioner Family
DX: J31.0 Chronic rhinitis (principal)
CPT/HCPCS: 99214; G2211

== ENCOUNTER 2023-11-05 11:57 | Emergency (ER) | payer OTHER, SELFPAY ==
[2023-11-05 12:01] VITALS: BP 136/81; PULSE 95; RESP 97; TEMP 36.4; O2SAT 99; BMI 25.8
--- NOTE | 2023-11-05 12:02 | ED_ITS ---
HPI - General Adult General Chief complaint: General Medical Stated complaint: parasite Related Data Home Medications ?Medication ?Instructions ?Recorded ?Confirmed albuterol sulfate 90 mcg/actuation 1 inh inhalation Q4-6H PRN 05/23/21 09/14/22 breath activated powder inhaler budesonide-formoterol HFA 160 2 puff inhalation BID PRN 05/23/21 09/14/22 mcg-4.5 mcg/actuation aerosol inhaler (Symbicort) acetaminophen 500 mg tablet 1,000 mg PO TID PRN 09/19/21 09/14/22 (Tylenol Extra Strength) benralizumab 30 mg/mL subcutaneous mg subcut 09/14/22 09/14/22 auto-injector (Fasenra Pen) tiotropium bromide 1.25 2 puff inhalation DAILY 09/14/22 09/14/22 mcg/actuation mist for inhalation (Spiriva Respimat) Previous Rx's ?Medication ?Instructions ?Recorded naproxen 250 mg tablet 250 - 500 mg (1 - 2 x 250 mg) PO 01/22/23 BID #120 tabs cephalexin 500 mg tablet 500 mg PO Q12H 10 days #20 tabs 09/28/23 clindamycin HCl 300 mg capsule 300 mg PO Q8H #30 caps 11/06/23 levofloxacin 750 mg tablet 750 mg PO DAILY #10 tabs 11/06/23 potassium chloride 20 mEq 20 meq PO DAILY #14 tabs 11/06/23 tablet,extended release Allergies Allergy/AdvReac Type Severity Reaction Status Date / Time bee pollen [BEE STINGS] Allergy Severe ANAPHYLAXIS Verified 11/06/23 00:14 animal dander Allergy Intermediate Cough Verified 11/06/23 00:14 [facility] Past Medical History Medical History Laceration of liver Osteoarthritis, hand Elevation of levels of liver transaminase levels Asthma Depressed Surgical History Previous section Family History Family History Mother Cirrhosis of liver Paternal Grandfather Pre-diabetes Social History Social History Household Members: Spouse Housing: House Do you presently have visiting nurse or other home services: No Alcohol intake: current Alcohol intake frequency: holidays/special occasions only Patient Tobacco Use Status: Former Tobacco user Tobacco use type: Cigarette Years Smoked: Quit 10 years Smoked in Last 30 Days: No e-Cigarette/Vaping Use: Former Use Use of substances other than those prescribed or required for medical reasons: Yes Substance Use Type: Crack/Cocaine and Heroin Advance Directives: No Advance Directives Information Provided: Yes Do you have a plan to hurt others: No Plan Patient : No service: No Current occupational status: employed 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 RME assessment and note performed by: Molly Landers PA-C This is a [id number]-female, with a hx of hypothyroidism, who presents to the ER with a complaint of concerns of having a parasitic infection. Patient states that over the last 1-2 months she was seeing a eggs in her stool and her sputum. No foreign travel. She states that she has been traveling to and from [place]. She presents with samples of her stool and sputum. Plan: labs, further ER eval Reevaluation(s) Reevaluation #1: Patient left without completing treatment. Medical Decision Making Lab Data 11/05/23 12:24 11/05/23 12:25 Labs: Lab Results 11/05/23 11/05/23 Range/Units 12:24 12:25 WBC 11.6 H (4.8-10.8) X10*3/uL RBC 4.87 (4.20-5.50) X10*6/uL Hgb 13.5 (12.0-16.0) g/dl Hct 38.9 (37.0-47.0) % MCV 79.9 L (80.0-98.0) fL MCH 27.7 (27.0-33.0) pg MCHC 34.7 (31.0-35.0) g/dl RDW 13.1 (11.0-16.0) % Plt Count 420 H D (160-400) X10*3/uL MPV 9.2 L (9.4-12.3) fL Immature Gran % (Auto) 0.3 (0.0-0.4) % Neut % (Auto) 66.6 (45-73) % Lymph % (Auto) 23.3 (20-40) % [place] % (Auto) 9.5 (2-11) % Eos % (Auto) 0.0 (0-4) % Baso % (Auto) 0.3 (0-2) % Lymph # (Auto) 2.7 (1.2-4.9) X10*3/uL [place] # (Auto) 1.1 (0.1-1.2) X10*3/uL Eos # (Auto) 0.0 (0.0-0.4) X10*3/uL Baso # (Auto) 0.0 (0.0-0.2) X10*3/uL Abs Immat Gran (auto) 0.03 (0.00-0.03) X10*3/uL Absolute Neuts (auto) 7.7 (2.0-8.3) x10*3/uL Absolute Nucleated RBC 0.000 (0.0-0.012) X10*3/uL Nucleated RBC % (auto) 0.0 (0.0-0.2) /100WBC Sodium 140 (135-145) mmol/L Potassium 2.6 L* (3.3-5.1) mmol/L Chloride 103 (96-108) mmol/L Carbon Dioxide 23 (22-29) mmol/L Anion Gap 17 (12-20) BUN 13 (9-16) mg/dL Creatinine 0.87 (0.5-1.4) mg/dL Estim Creat Clear Calc 86.8 Estimated GFR > 60 Random Glucose 95 (60-115) mg/dL Calcium 9.5 (8.4-10.2) mg/dL Total Bilirubin 0.2 (0.0-1.0) mg/dL Direct Bilirubin < 0.2 (0.0-0.5) mg/dL AST 10 (5-31) U/L ALT 10 (0-31) U/L Alkaline Phosphatase 70 (39-117) U/L Total Protein 7.9 (6.5-8.0) g/dL Albumin 4.7 (3.5-5.0) g/dL Discharge Plan Discharge Clinical Impression: Sinusitis Patient Disposition: Left W/O Completing Treatment Prescriptions: No Action naproxen 250 mg tablet 250 - 500 mg PO BID Qty: 120 5RF potassium chloride 20 mEq tablet extended release 20 meq PO DAILY Qty: 14 0RF clindamycin HCl 300 mg capsule 300 mg PO Q8H Qty: 30 0RF levofloxacin 750 mg tablet 750 mg PO DAILY Qty: 10 0RF cephalexin 500 mg tablet 500 mg PO Q12H 10 Days Qty: 20 0RF Fasenra Pen 30 mg/mL auto-injector subcut Spiriva Respimat 1.25 mcg/actuation mist 2 puff inhalation DAILY albuterol sulfate 90 mcg/actuation aerosol powdr breath activated 1 inh inhalation Q4-6H PRN budesonide-formoterol [Symbicort] 160-4.5 mcg/actuation HFA aerosol inhaler 2 puff inhalation BID PRN acetaminophen [Tylenol Extra Strength] 500 mg tablet 1,000 mg PO TID PRN Discharge Date/Time: 11/05/23 19:40
[2023-11-05 12:28] LABS: MANUAL DIFF FLAG NO
[2023-11-05 12:33] LABS: Basophils Percent Auto 0.3 % (0-2); Hematocrit 38.9 % (37.0-47.0); Hemoglobin 13.5 g/dl (12.0-16.0); Imm Gran Abs Auto 0.03 X10*3/uL (0.00-0.03); Imm Gran Pct Auto 0.3 % (0.0-0.4); Lymphocytes Absolute Auto 2.7 X10*3/uL (1.2-4.9); Lymphocytes Percent Auto 23.3 % (20-40); Mean Corpuscular HGB Conc 34.7 g/dl (31.0-35.0); Mean Corpuscular Hemoglobin 27.7 pg (27.0-33.0); Mean Corpuscular Volume 79.9 fL (80.0-98.0); Mean Platelet Volume 9.2 fL (9.4-12.3); Monocytes Absolute Auto 1.1 X10*3/uL (0.1-1.2); Monocytes Percent Auto 9.5 % (2-11); Neutrophils Absolute Auto 7.7 x10*3/uL (2.0-8.3); Neutrophils Percent Auto 66.6 % (45-73); Platelet Count 420 X10*3/uL (160-400); Red Blood Count 4.87 X10*6/uL (4.20-5.50); Red Cell Distribution Width 13.1 % (11.0-16.0); White Blood Count 11.6 X10*3/uL (4.8-10.8)
[2023-11-05 12:53] LABS: Alanine Aminotransferase 10 U/L (0-31); Albumin Level 4.7 g/dL (3.5-5.0); Alkaline Phosphatase 70 U/L (39-117); Aspartate Amino Transferase 10 U/L (5-31); Bilirubin Direct < 0.2 mg/dL (0.0-0.5); Bilirubin Total 0.2 mg/dL (0.0-1.0); Blood Urea Nitrogen 13 mg/dL (9-16); Calcium 9.5 mg/dL (8.4-10.2); Creatinine Clr Calc Pharmacy 86.8; Estimated Glomerular Filt Rate > 60; Glucose Random 95 mg/dL (60-115); Total Protein 7.9 g/dL (6.5-8.0)
[2023-11-05 12:58] LABS: Anion Gap 17 (12-20)
--- NOTE | 2023-11-05 13:02 | ECG_ITS ---
Test Reason : hypokalemia Blood Pressure : / mmHG Vent. Rate : 071 BPM Atrial Rate : 071 BPM P-R Int : 172 ms QRS Dur : 092 ms QT Int : 466 ms P-R-T Axes : 065 -23 046 degrees QTc Int : 506 ms Normal sinus rhythm T wave abnormality, consider anterior ischemia Prolonged QT Abnormal ECG When compared with ECG of 18-JAN-2022 13:59, Criteria for Anterior infarct are no longer Present Criteria for Anterolateral infarct are no longer Present Criteria for Inferior infarct are no longer Present Non-specific change in ST segment in Inferior leads Nonspecific T wave abnormality, worse in Lateral leads Referred By: Molly Landers Electronically Signed By:DUY JARA
[2023-11-05 13:03] LABS: Carbon Dioxide 23 mmol/L (22-29); Chloride 103 mmol/L (96-108); Potassium 2.6 mmol/L (3.3-5.1); Sodium 140 mmol/L (135-145)
--- NOTE | 2023-11-05 19:22 | PC.NURSE ---
No answer in the WR @ 1914. T/w concerned due to low K, calling pt. Per pt, she left and lives in [place] but will return for treatment within 1 hour.
== END 2023-11-05 19:40 | disposition left against medical advice (07) ==
LOC: HO.ED 19:41
PROVIDERS: Physician Assistant Medical; Emergency Provider Emergency Medicine
DX: J32.9 Chronic sinusitis, unspecified (principal); E87.6 Hypokalemia; R94.31 Abnormal electrocardiogram [ECG] [EKG]; Z79.899 Other long term (current) drug therapy; Z87.891 Personal history of nicotine dependence
CPT/HCPCS: 36415; 80048; 80076; 85025; 93005; 99283

== ENCOUNTER 2023-11-06 00:04 | Emergency (ER) | payer OTHER, SELFPAY ==
[2023-11-06 00:10] VITALS: BP 179/94; PULSE 79; RESP 16; TEMP 36; O2SAT 100; BMI 24.0
--- NOTE | 2023-11-06 02:07 | ECG_ITS ---
Test Reason : HYPOKALEMIA Blood Pressure : / mmHG Vent. Rate : 061 BPM Atrial Rate : 061 BPM P-R Int : 188 ms QRS Dur : 096 ms QT Int : 478 ms P-R-T Axes : 068 -23 035 degrees QTc Int : 481 ms Normal sinus rhythm with sinus arrhythmia Incomplete right bundle branch block Nonspecific T wave abnormality Prolonged QT Abnormal ECG When compared with ECG of 05-NOV-2023 13:08, Incomplete right bundle branch block is now Present Referred By: Louis Shannon Electronically Signed By:DUY JARA
--- NOTE | 2023-11-06 02:11 | ED_ITS ---
HPI - Recheck/Abnormal Lab/Rx General Chief Complaint: Recheck/Abnormal Lab/Rx Stated Complaint: parasite Time Seen by Provider: 11/06/23 02:03 Source: patient Mode of arrival: ambulatory Limitations: no limitations History of Present Illness ED Provider: junie ARRIAZA narrative: Patient's history of cocaine abuse snorts cocaine complaining of chronic nose pain supposed to see ENT this week does have purulent discharge feels that patient has passive side coming from the nose for in fact is the tissue and purulent discharge was in the triage earlier today and labs were done which showed potassium of 2.6 patient does not have any history of hypo kalemia was called back to ER for recheck of potassium level Related Data Home Medications ?Medication ?Instructions ?Recorded ?Confirmed albuterol sulfate 90 mcg/actuation 1 inh inhalation Q4-6H PRN 05/23/21 09/14/22 breath activated powder inhaler budesonide-formoterol HFA 160 2 puff inhalation BID PRN 05/23/21 09/14/22 mcg-4.5 mcg/actuation aerosol inhaler (Symbicort) acetaminophen 500 mg tablet 1,000 mg PO TID PRN 09/19/21 09/14/22 (Tylenol Extra Strength) benralizumab 30 mg/mL subcutaneous mg subcut 09/14/22 09/14/22 auto-injector (Fasenra Pen) tiotropium bromide 1.25 2 puff inhalation DAILY 09/14/22 09/14/22 mcg/actuation mist for inhalation (Spiriva Respimat) Previous Rx's ?Medication ?Instructions ?Recorded naproxen 250 mg tablet 250 - 500 mg (1 - 2 x 250 mg) PO 01/22/23 BID #120 tabs cephalexin 500 mg tablet 500 mg PO Q12H 10 days #20 tabs 09/28/23 clindamycin HCl 300 mg capsule 300 mg PO Q8H #30 caps 11/06/23 levofloxacin 750 mg tablet 750 mg PO DAILY #10 tabs 11/06/23 potassium chloride 20 mEq 20 meq PO DAILY #14 tabs 11/06/23 tablet,extended release Allergies Allergy/AdvReac Type Severity Reaction Status Date / Time bee pollen [BEE STINGS] Allergy Severe ANAPHYLAXIS Verified 11/06/23 00:14 animal dander Allergy Intermediate Cough Verified 11/06/23 00:14 Review of Systems 2 Review of Systems: Yes all other systems are reviewed and are negative [facility] Past Medical History Medical History Laceration of liver Osteoarthritis, hand Elevation of levels of liver transaminase levels Asthma Depressed Surgical History Previous section Family History Family History Mother Cirrhosis of liver Paternal Grandfather Pre-diabetes Social History Social History Household Members: Spouse Housing: House Do you presently have visiting nurse or other home services: No Alcohol intake: current Alcohol intake frequency: holidays/special occasions only Patient Tobacco Use Status: Former Tobacco user Tobacco use type: Cigarette Years Smoked: Quit 10 years Smoked in Last 30 Days: No e-Cigarette/Vaping Use: Former Use Use of substances other than those prescribed or required for medical reasons: Yes Substance Use Type: Crack/Cocaine and Heroin Advance Directives: No Advance Directives Information Provided: Yes Do you have a plan to hurt others: No Plan Patient : No service: No Current occupational status: employed 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 Oriented X3. No acute distress. ENT: Pharynx normal. Oral Mucosa moist septal perforation with purulent discharge in both nostrils right more than the left Neck: Normal inspection. Neck supple. CVS: Normal heart rate and rhythm. Pulses normal. Respiratory: No respiratory distress. Equal air entry bilateral, no wheezing/rales/rhonchi Abdomen: Soft and nontender. Bowel sounds are present, Skin: Skin warm and dry. Normal skin color. Normal skin turgor. Extremities: No lower extremity edema. No calf tenderness Neuro: Oriented X 3. No motor deficit. Medications Administered Discontinued Medications Generic Name Dose Route Start Last Admin Trade Name Amilcar PRN Reason Stop Dose Admin Clindamycin HCl 300 mg 11/06/23 02:38 11/06/23 02:57 Clindamycin Hcl 300 Mg Capsule PO 11/06/23 02:39 300 mg ONCE ONE Administration Potassium Chloride 10 meq in 100 mls @ 100 mls/hr 11/06/23 03:50 11/06/23 04:37 Potassium Chloride/H20 IV 11/06/23 04:49 Not Given ONCE ONE Levofloxacin 750 mg 11/06/23 05:15 11/06/23 05:19 Levofloxacin 750 Mg Tablet PO 11/06/23 05:16 750 mg ONCE ONE Administration Potassium Bicarbonate 50 meq 11/06/23 02:52 11/06/23 02:57 Potassium Bicarbonate/Cit Ac 25 Meq Tablet.Eff PO 11/06/23 02:53 50 meq ONCE ONE Administration Potassium Chloride 40 meq 11/06/23 02:52 11/06/23 02:57 Potassium Chloride Er 20 Meq Tab.Er.Prt PO 11/06/23 02:53 40 meq ONCE ONE Administration Medical Decision Making Medical Decision Making MDM Narrative: Patient with substance abuse cocaine with chronic sinusitis with hypokalemia which was replaced repeat potassium was 3.2 patient was given orange juice prescribe potassium tablets will prescribe clindamycin Levaquin for chronic sinus infection from cocaine use advised to follow with ENT as scheduled this week Lab Data [facility] Lab Attestation statement: I reviewed the patient's lab results. 11/06/23 04:16 Labs: Lab Results 11/06/23 11/06/23 Range/Units 02:23 04:16 Sodium 140 140 (135-145) mmol/L Potassium 2.8 L* 3.2 L (3.3-5.1) mmol/L Chloride 107 106 (96-108) mmol/L Carbon Dioxide 25 24 (22-29) mmol/L Anion Gap 11 L 13 (12-20) BUN 15 (9-16) mg/dL Creatinine 0.75 (0.5-1.4) mg/dL Estim Creat Clear Calc 85.2 Estimated GFR > 60 Random Glucose 101 (60-115) mg/dL Calcium 9.1 (8.4-10.2) mg/dL Magnesium 1.7 (1.6-2.6) mg/dL Independent Interpretation I performed an independent interpretation of an: EKG Interpretation: Normal sinus rhythm heart rate 61 beats per minute normal interval incomplete right bundle-branch block QT interval 481 no acute STT wave changes Discharge Plan Discharge Clinical Impression: Acute hypokalemia, Chronic sinus infection, Cocaine abuse Patient Disposition: Home, Self-Care Instructions: Sinusitis (ED), Hypokalemia (ED), Cocaine Abuse (ED) Additional Instructions: Stop using cocaine as it is damage your sinuses Antibiotic as prescribed Have more food containing high potassium like oranges and bananas Potassium tablets as prescribed Recheck potassium level in 1 week Follow with your ENT specialist for your sinus problems Prescriptions: New potassium chloride 20 mEq tablet extended release 20 meq PO DAILY Qty: 14 0RF clindamycin HCl 300 mg capsule 300 mg PO Q8H Qty: 30 0RF levofloxacin 750 mg tablet 750 mg PO DAILY Qty: 10 0RF No Action naproxen 250 mg tablet 250 - 500 mg PO BID Qty: 120 5RF cephalexin 500 mg tablet 500 mg PO Q12H 10 Days Qty: 20 0RF Fasenra Pen 30 mg/mL auto-injector subcut Spiriva Respimat 1.25 mcg/actuation mist 2 puff inhalation DAILY albuterol sulfate 90 mcg/actuation aerosol powdr breath activated 1 inh inhalation Q4-6H PRN budesonide-formoterol [Symbicort] 160-4.5 mcg/actuation HFA aerosol inhaler 2 puff inhalation BID PRN acetaminophen [Tylenol Extra Strength] 500 mg tablet 1,000 mg PO TID PRN Interventions: ED Discharge Assessment Last Done: 11/06/23 05:23 Discharge Date/Time: 11/06/23 05:24 Print Language: Faroese
[2023-11-06 02:26] VITALS: BP 148/75; PULSE 61; RESP 17; TEMP 36.6; O2SAT 98
[2023-11-06 02:50] LABS: Anion Gap 11 (12-20); Blood Urea Nitrogen 15 mg/dL (9-16); Calcium 9.1 mg/dL (8.4-10.2); Carbon Dioxide 25 mmol/L (22-29); Chloride 107 mmol/L (96-108); Creatinine Clr Calc Pharmacy 85.2; Estimated Glomerular Filt Rate > 60; Glucose Random 101 mg/dL (60-115); Magnesium 1.7 mg/dL (1.6-2.6); Potassium 2.8 mmol/L (3.3-5.1); Sodium 140 mmol/L (135-145)
[2023-11-06] MEDS: Potassium Chloride ER 20 MEQ TAB.ER.PRT 40 MEQ PO (02:57)
[2023-11-06] MEDS: Potassium Bicarbonate/Cit AC 25 MEQ TABLET.EFF 50 MEQ PO (02:57)
[2023-11-06] MEDS: Clindamycin HCL 300 MG CAPSULE PO (02:57)
[2023-11-06 04:07] VITALS: BP 173/81; PULSE 59; RESP 16; TEMP 36.9; O2SAT 98
[2023-11-06 04:33] LABS: Anion Gap 13 (12-20); Carbon Dioxide 24 mmol/L (22-29); Chloride 106 mmol/L (96-108); Potassium 3.2 mmol/L (3.3-5.1); Sodium 140 mmol/L (135-145)
[2023-11-06 05:19] VITALS: BP 163/82; PULSE 58; RESP 20; TEMP 37; O2SAT 99
[2023-11-06] MEDS: levoFLOXacin 750 MG TABLET PO (05:19)
[2023-11-06 05:23] VITALS: BP 163/82; PULSE 58; RESP 20; TEMP 37; O2SAT 99
== END 2023-11-06 05:24 | disposition home or self-care (01) ==
PROVIDERS: Emergency Provider Internal Medicine; PCP Nurse Practitioner Family
DX: E87.6 Hypokalemia (principal); J32.9 Chronic sinusitis, unspecified; F14.10 Cocaine abuse, uncomplicated; J45.909 Unspecified asthma, uncomplicated; Z87.891 Personal history of nicotine dependence
CPT/HCPCS: 36415; 80048; 80051; 83735; 93005; 99283; 99284

== ENCOUNTER 2024-04-22 10:09 | Outpatient (AMB) | payer OTHER, SELFPAY ==
--- NOTE | 2024-04-22 10:12 | A.OFFPC_ITS ---
Vital Signs 04/22/24 10:21 04/22/24 10:45 Height 5 ft 4 in Weight 186 lb 4 oz BMI 32.0 BP 183/87 H 160/80 H Blood Pressure Location Rt brachial Rt brachial Position Sitting Sitting Respiration 16 Pulse 80 80 Pulse Source Pulse Oximeter Auscultation Temp 98.2 F Temp Source Oral Pulse Oximetry (%) 98 Oxygen Delivery Method Room Air Intake Visit Reasons: Annual PE Intake Note: patient here for CPE Primary Operator Required: No Is last menstrual period known: No (IUD) Post menopausal: No Patient : No Allergies bee pollen [BEE STINGS] Allergy (Severe, Verified 04/22/24 10:25) ANAPHYLAXIS animal dander Allergy (Intermediate, Verified 04/22/24 10:25) Cough Medication List - Last Reconciled 04/22/24 by Guillaume Sadler CNP acetaminophen (Tylenol Extra Strength) 1,000 mg PO TID PRN albuterol sulfate 90 mcg/actuation 1 inh inhalation Q4-6H PRN potassium chloride ER 20 mEq PO DAILY Tobacco use date assessed: 04/22/24 Dental Screening Dental Screen Date: 04/22/24 Did you have a dental visit in the last 12 months?: Yes Did you have a dental problem in the last 6 months where you did not have access to dental care?: No Was dental information given to patient?: Patient has dentist HPI HPI Comments History of Present Illness Details 43-year-old female presents for an exten ded physical exam. Acute issue(s) - Reports daily anxiety and depression s ymptoms which worsen at night. She notes difficulty falling or staying asleep. She was on Wellbutrin and Buspirone until about 2 years ago; she ran out of refills and did not follow up as planned. - Elevated blood pressure w/o diagnosis of HTN. Reports low sodium diet. Her dad and PGF has history of HTN and dad has history of cardiovascular disease. - Reports rash with intermittent itching to her left upper thigh for the past 2 months. Past Medical History - Asthma, hypothyroidism, vitamin-D defi ciency, anxiety, and depression Social History - Former cigarette smoker, quit 15 years ago. Vape x 1 week and quit 15 years ago. Drinks 6 cans of 5% alcohol daily x 7 days to help with anxiety. Denies recreational drug use - Has been making healthy dietary choice s, including low-sodium diet. Active but does not exercise. She notes sleep disturbance Health maintenance - Last eye exam was over 15 years ago. Referred to Ophthalmology for routine eye exam - Last dental visit was yesterday - Last tetanus vaccine was about 20 year s ago; received Tdap vaccine today - Has not been vaccinated for the flu season; declines vaccination - Last pap smear test was 6-7 years ago: abnormal. Referred to [facility] for a pap smear test - Has never had a mammogram. Mammogram o rdered [facility] Medical History Laceration of liver Osteoarthritis, hand Elevation of levels of liver transaminase levels Asthma Depressed Surgical History Previous section Family History Mother Cirrhosis of liver Paternal Grandfather Pre-diabetes Social History Household Members: Spouse Housing: House Do you presently have visiting nurse or other home services: No 75 years or older and lives alone: No Alcohol intake: current Alcohol intake frequency: holidays/special occasions only Patient Tobacco Use Status: Former Tobacco user Tobacco use type: Cigarette Years Smoked: Quit 10 years e-Cigarette/Vaping Use: Former Use Second Hand Smoke Exposure: No Substance Use Type: Crack/Cocaine and Heroin service: No Current occupational status: employed Current occupation: [employer] Cognitive needs: No Hearing needs: No Vision needs: No Questionnaire PHQ-9 Over the last 2 weeks, how often have you been bothered by any of the following problems? 1. Little interest or pleasure in doing things: nearly every day 2. Feeling down, depressed, or hopeless: nearly every day 3. Trouble falling or staying asleep, or sleeping too much: nearly every day 4. Feeling tired or having little energy: nearly every day 5. Poor appetite or overeating: nearly every day 6. Feeling bad about yourself - or that you are a failure or have let yourself or your family down: nearly every day 7. Trouble concentrating on things, such as reading the newspaper or watching television: nearly every day 8. Moving or speaking so slowly that other people could have noticed. Or the opposite - being so fidgety or restless that you have been moving around a lot more than usual: nearly every day 9. Thoughts that you would be better off or of hurting yourself in some way: not at all Total score: 24 Depression Screening Interpretation: Positive Depression Screening Follow-up: Existing condition and New Medication prescribed Depression Screening Done: Yes 65739 - PHQ-9 Billing: Yes Source: Developed by Drs. Anish Alex, Ashleigh Dow, Jeremy Davis and colleagues, with an educational diego from [employer]. Thrive Questionnaire Date Thrive assessed: 04/22/24 I am a: Patient What is your living situation today?: I choose not to answer this question Within the past 12 months, did the food you bought not last and you didn't have the money to get more?: Never true Within the past 12 months, did you worry whether your food would run out before you got money to buy more?: Never true Do you have trouble paying for medicines?: No Do you have trouble getting transportation to medical appointments?: I choose not to answer this question Do you have trouble paying your heating and electricity bill?: I choose not to answer this question Do you have trouble taking care of your child, family member or friend?: I choose not to answer this question Do you have trouble with day-to-day activities such as bathing, preparing meals, shopping, managing finances, etc.?: I choose not to answer this question Are you currently unemployed and looking for a job?: I choose not to answer this question Are you interested in more education?: I choose not to answer this question Please select the resources that you would like help with: None Currently or been in a relationship where the following occur: No concerns reported THRIVE Score: 0 AUDIT C Alcohol Use Questionnaire (AUDIT-C) 1. How often do you have a drink containing alcohol?: Never Total Score: 0 KARLI-7 AMB Questionnaire KARLI-7 Date KARLI - 7 assessed: 04/22/24 Feeling nervous, anxious, or on edge: 1 = Several days Not being able to stop or control worryin = Several days Worrying too much about different things: 1 = Several days Trouble relaxin = Several days Being so restless that it is hard to sit still: 1 = Several days Becoming easily annoyed or irritable: 1 = Several days Feeling afraid as if something awful might happen: 1 = Several days Total KARLI-7 score (0-4 normal; 5-9 mild; 10-14 moderate; 15-21 severe): 7 Source: Developed by Drs. Anish Alex, Ashleigh Dow, Jeremy Davis and colleagues, with an educational diego from [employer]. KARLI-7 Assessment Billing KARLI-7 Assessment Tool: KARLI-7 Assessment 18501 ACT Questionnaire In the past 4 weeks, how much of the time did your asthma keep you from getting as much done at work, school or at home?: Most of the time During the past 4 weeks, how often have you had shortness of breath?: More than once a day During the past 4 weeks, how often did your asthma symptoms wake you up at night or earlier than usual in the morning?: 2-3 nights a week During the past 4 weeks, how often have you had to use your rescue inhaler or nebulizer medication?: 1-2 times a week How would you rate your asthma control during the past 4 weeks?: Not controlled at all Score: 8 Review of Systems Const Details: Denies chills, Denies fatigue, Denies fever(s), Denies headache(s) and Denies weakness HEENT Denies change in vision, Denies dizziness, Denies headache(s), Denies hearing loss, Denies nasal congestion, Denies sinus pain, Denies sinus pressure and Denies sore throat Card Denies chest pain, Denies lightheadedness, Denies dyspnea and Denies other (palpitations) Resp Denies cough, Denies dyspnea and Denies wheezing GI Denies abdominal pain, Denies melena, Denies hematochezia, Denies change in bowel habits, Denies dyspepsia and Denies nausea Denies hematuria and Denies dysuria Musc Denies abnormal gait, Denies myalgias, Denies arthralgias, Denies numbness and Denies tingling Skin/Breast Reports rash, Denies unusual bruising and Denies wounds Neuro Denies abnormal gait, Denies dizziness, Denies headache(s), Denies memory loss, Denies numbness, Denies Sensory deficit (Neuro), Denies tingling and Denies weakness Psych Reports anxiety, Reports depression and Denies memory loss Endo Denies cold intolerance, Denies fatigue, Denies heat intolerance, Denies polydipsia and Denies polyuria Costa/Lymph Denies easy bleeding and Denies easy bruising Aller/Immun Denies wheezing Physical exam (Primary Care) Vital Signs: Last Vital Signs Temp 98.2 F 04/22/24 10:21 Pulse 80 04/22/24 10:45 Resp 16 04/22/24 10:21 BP 160/80 H 04/22/24 10:45 Pulse Ox 98 04/22/24 10:21 Oxygen Delivery Method Room Air 04/22/24 10:21 BMI result Body Mass Index 32.0 Tobacco/Smoking Status: Tobacco use Status Tobacco use date assessed 04/22/24 04/22/24 10:23 Patient Tobacco Use Status Former Tobacco user 04/22/24 10:12 Tobacco use type Cigarette 04/22/24 10:12 e-Cigarette/Vaping Use Former Use 04/22/24 10:12 PHQ-9: PHQ-9 Score PHQ-9: Total score 24 04/22/24 10:27 Depression Screening Interpretation: Positive Depression Screening Follow-up: Existing condition and New Medication prescribed Thrive Assessment: Date of Thrive Assessment Date Thrive assessed 04/22/24 04/22/24 10:15 Currently or been in a relationship where the following occur: No concerns reported Const Other: General: no acute distress, well developed, alert and awake Nutritional Appearance: well nourished Orientation/consciousness: patient oriented x3 HENMT Head: Yes normocephalic and Yes atraumatic Ears: hearing grossly normal bilaterally and TM's normal bilaterally General nose exam: Normal external nose present and Normal nares present Mouth: Normal oral and palatal mucosa present and moist mucous membranes Teeth and gingiva: dentition normal Throat: Yes oropharynx normal Eyes Pupils: Equal, round and reactive pupils present and Pupil accommodation reflex normal EOM: EOMs intact bilaterally Neck Neck: Yes normal visual inspection, Yes no lymphadenopathy and Yes trachea midline Thyroid: Thyroid normal Carotids: no bruits Lymphatic: no lymphadenopathy noted Chest Chest palpation & inspection: normal inspection of the chest Resp Effort & Inspection: normal respiratory effort Auscultation: clear to auscultation bilaterally Cardio Rate: regular rate Rhythm: regular rhythm Heart sounds: S1 normal heart sound present, S2 normal heart sound present, no gallops, no murmurs and no rubs Bruits: no abdominal aortic bruits and no carotid bruits GI Palpation (GI): No Abdominal aortic bruit present, Soft to palpation, nontender, No hepatosplenomegaly present and No Rebound tenderness present Auscultation: normal bowel sounds General: Yes no CVA tenderness Back/Spine/Pelvis Back: no CVA tenderness Cervical Spine: cervical ROM normal and No Cervical spine tenderness Thoracic/Lumbar Spine: thoraco-lumbar ROM normal, No pain with thoraco-lumbar ROM, No thoracic spinal tenderness and No lumbar spinal tenderness Skin General: warm and dry. Normal skin color. Normal skin turgor Lesions: no lesions Rashes: Papular rash noted to the right upper thigh below the waistline, no overt infection Trauma: no lacerations or abrasions Wounds: no wounds Nails: normal Neuro General: patient oriented x3, gait normal and CN's II-XI intact bilaterally Cranial nerves: Yes Equal, round and reactive pupils present Cognition (Neuro): normal cognition Gait exam (Neuro): Normal gait present Motor exam (neuro): 5/5 motor strength present throughout Sensory Exam: No Sensory deficit (Neuro) Deep tendon reflexes (DTR's): Right patellar reflex intensity grade: 2+ and Left patellar reflex intensity grade: 2+ Extrem General: Yes normal to inspection, No edema and No calf tenderness Psych Appearance: grossly normal Affect: normal affect Attitude: cooperative Thought process: Normal thought process present Office Procedures Flu Questionnaire Does the patient have a severe egg allergy?: No Does the patient have severe life threatening allergies?: No Does the patient have a fever or illness today?: No Has the patient ever had Guillain-[place] Syndrome?: No Has the patient ever had any past reaction to a flu shot?: No Immunizations Fluarix Triv [id number] (PF) 45 mcg (15 mcg x 3)/0.5 mL IM syringe Performing Provider: Guillaume Sadler CNP Performing Location: [facility] Administered by: Anthony Gandhi RN on 04/22/24 11:22 Dose Route Admin Location Dispensed Lot Number Expiration Date [facility] [employer] 0.5 mL IM Left Deltoid 0.5 mL [id number] 08/25/24 [id number] [employer] VIS Given Date VIS Provided VIS Publication Date 04/22/24 Single Vaccine 21 Eligibility Eligibility Date Funding Source Not VFC Eligible 04/22/24 Private Boostrix Tdap 2.5 Lf unit-8 mcg-5 Lf/0.5 mL intramuscular syringe Performing Provider: Guillaume Sadler CNP Performing Location: [facility] Administered by: Anthony Gandhi RN on 04/22/24 11:15 Dose Route Admin Location Dispensed Lot Number Expiration Date [facility] [employer] 0.5 mL IM Right Deltoid 0.5 mL [id number] 06/14/26 [id number] [employer] VIS Given Date VIS Provided VIS Publication Date 04/22/24 Single Vaccine 20 Eligibility Eligibility Date Funding Source Not VFC Eligible 04/22/24 Private Coding Level of Care Code Est Pt Level 4 (43073) Est Pt Prev Care 40-64y(69243) Diagnoses Normal physical examination, routine Z00.00 Elevated blood pressure reading without diagnosis of hypertension R03.0 Generalized anxiety disorder F41.1 Major depression F32.9 Sleep disturbance G47.9 Breast cancer screening by mammogram Z12.31 Pap smear for cervical cancer screening Z12.4 Rash R21 Alcohol dependence F10.20 Obesity (BMI 30-39.9) E66.9 Eye exam, routine Z01.00 Laboratory tests ordered as part of a complete physical exam (CPE) Z00.00 Additional Codes KARLI-7 Assessment Billing - KARLI-7 Assessment Tool: KARLI-7 Assessment 81621 ([id number]) PHQ-9 - 40993 - PHQ-9 Billing: Yes ([id number]) Assessment & Plan Assessment & Plan (1) Normal physical examination, routine: Code(s): Z00.00 - Encounter for general adult medical examination without abnormal findings Category: Medical Plan: No significant functional limitations noted. Advised to get fasting lab work done and follow-up in a week for hypertension and labs review. Return sooner with symptoms or concerns. Verbalized understanding and agreed with treatment plan. (2) Elevated blood pressure reading without diagnosis of hypertension: Code(s): R03.0 - Elevated blood-pressure reading, without diagnosis of hypertension Category: Medical Plan: Resting blood pressure is 160/80, above goal of less than 140/90. She admits to maintaining low-sodium diet. She has family history of hypertension and cardiovascular disease. She drinks 6 cans of 5% alcohol daily x 7 days to help with anxiety; this may contributes to her elevated blood pressure. Encouraged to avoid or reduce her alcohol intake to no more than 2 drinks daily or 5 weekly. She notes that she was stop drinking today. Low-sodium diet and routine exercise encouraged. Follow-up for a nurse visit for blood pressure check in 3 days. Return in 1 week. Verbalized understanding and agreed with the plan. (3) Generalized anxiety disorder: Code(s): F41.1 - Generalized anxiety disorder Category: Medical Plan: Daily anxiety and depression symptoms which worsen at night. She notes difficulty falling or staying asleep. She was on Wellbutrin and Buspirone until about 2 years ago; she ran out of refills and did not follow up as planned. She drinks 6 cans of 5% alcohol daily x 7 days to help with anxiety. Instructed on the health risks and complications of excessive alcohol intake. Encouraged to avoid or reduce her alcohol intake to no more than 2 drinks daily or 5 weekly before psychotropic medication will be prescribed due to the impact of alcohol on the receptors that psychotropic medications affect. She notes that she was stop drinking today if the medications are prescribed. Bupropion 150 mg in the morning and buspirone 15 mg twice daily ordered; advised to take as prescribed. Instructed on the risks, benefits, potential adverse reactions of the medications. Informed of the dangers of drinking alcohol on the medications and encouraged to avoid drinking. Follow-up with worsening or new symptoms. Verbalized understanding and agreed with treatment plan. (4) Major depression: Code(s): F32.9 - Major depressive disorder, single episode, unspecified Category: Medical Plan: Plan as above. (5) Sleep disturbance: Code(s): G47.9 - Sleep disorder, unspecified Category: Medical Plan: Plan as above. (6) Breast cancer screening by mammogram: Code(s): Z12.31 - Encounter for screening mammogram for malignant neoplasm of breast Category: Medical Plan: Has never had a mammogram. Mammogram ordered. (7) Pap smear for cervical cancer screening: Code(s): Z12.4 - Encounter for screening for malignant neoplasm of cervix Category: Medical Plan: Last pap smear test was 6-7 years ago: abnormal. Referred to [facility] for a pap smear test. (8) Rash: Code(s): R21 - Rash and other nonspecific skin eruption Category: Medical Plan: Rash with intermittent itching to her left upper thigh for the past 2 months. Papular rash noted to the right upper thigh below the waistline, no overt infection. May use hydrocortisone cream as needed. Follow-up with worsening or new signs and symptoms. May referred to dermatology. Verbalized understanding and agreed with treatment plan. (9) Alcohol dependence: Code(s): F10.20 - Alcohol dependence, uncomplicated Category: Medical Plan: She drinks 6 cans of 5% alcohol daily x 7 days to help with anxiety. Instructed on the health risks and complications of excessive alcohol intake. Encouraged to avoid or reduce her alcohol intake to no more than 2 drinks daily or 5 weekly. Declines referral to addiction medicine and notes that she would stop drinking today if psychotropic medications as prescribed for her anxiety. Bupropion and buspirone prescribed prescribed for depression and anxiety respectively. Advised to take the medications as prescribed and avoid drinking while taking her medications. Follow-up as needed. Verbalized understanding and agreed with treatment plan. (10) Obesity (BMI 30-39.9): Code(s): E66.9 - Obesity, unspecified Category: Medical Plan: She currently weighs 186 lb, BMI is 32.0. Healthy diet and routine exercise encouraged. Follow-up as needed. Will referred to nutrition/dietitian as needed. Verbalized understanding and agreed with treatment plan. (11) Eye exam, routine: Code(s): Z01.00 - Encounter for examination of eyes and vision without abnormal findings Category: Medical Plan: Last eye exam was over 15 years ago. Referred to Ophthalmology for routine eye exam. (12) Laboratory tests ordered as part of a complete physical exam (CPE): Code(s): Z00.00 - Encounter for general adult medical examination without abnormal findings Category: Medical Plan: Fasting labs ordered as part of a complete physical exam. Advised to fast for at least 10 hours before getting labs drawn. May drink water Verbalized understanding and agreed with treatment plan. Orders: Orders Influenza [id number] Immunization Today Z23 - Encounter for immunization TDaP Immunization Today Z23 - Encounter for immunization Comprehensive [place]. Panel Fast Today Z00.00 - Encounter for general adult medical examination without abnormal findings Lipid Panel Today Z00.00 - Encounter for general adult medical examination without abnormal findings Vitamin D 25-OH Total Today Z00.00 - Encounter for general adult medical examination without abnormal findings MM screening mammo BI Today Z12.31 - Encounter for screening mammogram for malignant neoplasm of breast Complete Blood Count Auto Diff Today Z00.00 - Encounter for general adult medical examination without abnormal findings TSH reflex Free T4 Today Z00.00 - Encounter for general adult medical examination without abnormal findings UA CC w/rflx Micro + Cult Today Z00.00 - Encounter for general adult medical examination without abnormal findings Microalbumin, Random (w Creat) Today Z00.00 - Encounter for general adult medical examination without abnormal findings Referrals [facility] Referral Z12.4 - Encounter for screening for malignant neoplasm of cervix Ophthalmology Referral Z01.00 - Encounter for examination of eyes and vision without abnormal findings Medications: Refilled buspirone 15 mg PO BID 30 days 60 tabs 3RF bupropion HCl XL 150 mg PO QAM 30 tabs 3RF Discontinued potassium chloride ER Discontinued Reason: Patient no longer taking 20 mEq PO DAILY 14 tabs 0RF
[2024-04-22 10:21] VITALS: BP 183/87; PULSE 80; RESP 16; TEMP 36.8; O2SAT 98; BMI 32.0
[2024-04-22 10:45] VITALS: BP 160/80; PULSE 80
--- OUTSIDE RECORDS SUMMARY | 2024-04-22 11:54 | XMS_ITS | Data Portability ---
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 I would attribute this to her intranasal cocaine exposure. She is currently being treated with clindamycin and levofloxacin through the emergency department at [facility]. I have recommended the addition of mupirocin to topically applied to the edges of the ulceration. Strongly recommend she seek help for her cocaine use. There are no surgery options available at this time. She mentions several times worms or insects in her nose and I reviewed images on her phone as well as tissues of the debris she recently removed in our office bathroom today. I do not believe these represent insects or insect larva but rather small fragments of crusting from the nose. The larger crust and clot do not represent cocoon's from the insect but rather efforts of the body to remove tissue that is dying from the edges of the septal perforation as the scab comes off dplosky Not available 11/09/2023 10:54:29 Plan of Treatment Reminders Order Date Submit Date Provider Last Modified By Organization Details Last Modified Time Details Appointments None recorded. Lab None recorded. Referral None recorded. Procedures None recorded. Surgeries None recorded. Imaging None recorded. Medication Orders mupirocin 2 % topical ointment 2023 024 [facility]/Ph[facility]acy #[id number], [address] [place], [address], 09/13/202 4 10:51:20 Patient TargetsNo targets recorded. Patient InstructionsNo instructions recorded. Reason for Referral None Reported. Problems Name Problem SNOMED Code Status Onset Date Resolution Date Notes Provider Name and Address Organization Details Recorded Time Ulcerative rhinitis 46148460 Active 024 KATHY TELLO MD [address] [facility], [place], [phone], [facility] - [facility] [place] 4 10:07:40 Perforation of nasal septum 50548712 Active 024 KATHY TELLO MD [address] [facility],[place] [address], [place], [phone], [facility] - [facility] [place] 4 10:50:36 Cocaine abuse 83779289 Active 024 KATHY TELLO MD [address] [place] [address],[place] [address], [place], [phone], [facility] - [facility] 4 10:50:43 Problem Notes None recorded. Procedures Surgical History Date Name Laterality Status Provider Name and Address Organization Details Recorded Time 11/09/2023 NasalEndos copy_DP completed KATHY TELLO MD [address] [place] [address], [phone], [facility] 11/08/2023 10:04:52 Imaging Results None recorded. Procedure Notes None recorded. Medical Equipment None Reported. Medications Name Sig Start Date Stop Date Status Note LastModified by Organization Details LastModified Time amoxicillin 500 mg capsule TAKE 1 CAPSULE BY MOUTH THREE TIMES A DAY FOR 7 DAYS active Not Available Not Available No t Available clindamycin HCl 300 mg capsule active Not Available Not Available Not Available ibuprofen 800 mg tablet TAKE 1 TABLET BY MOUTH EVER 6-8 HOURS NEEDED FOR PAIN active Not Available Not Available No t Available naproxen 250 mg tablet TAKE 1-2 TABLETS BY MOUTH 2 TIMES A DAY active Not Available Not Available No t Available acetaminophen 300 mg-codeine 30 mg tablet active Not Available Not Available No t Available cephalexin 500 mg capsule TAKE 1 CAPSULE BY MOUTH EVERY 12 HOURS FOR 10 DAYS active Not Available Not Available No t Available alcohol swabs active Not Available Not Available Not Available mupirocin 2 % topical ointment APPLY A SMALL AMOUNT TO AFFECTED AREA 3 TIMES A DAY active Not Available Not Available No t Available gabapentin 100 mg capsule TAKE 1 CAPSULE BY MOUTH EVERY MORNING AND 3 AT NIGHT FOR PAIN active Not Available Not Available No t Available levofloxacin 750 mg tablet active Not Available Not Availabl e Not Available buspirone 15 mg tablet TAKE 1 TABLET BY MOUTH TWICE A DAY FOR 30 DAYS active Not Available Not Available No t Available bupropion HCl XL 300 mg 24 hr tablet, extended release TAKE 1 TABLET BY MOUTH EVERY DAY IN THE MORNING active Not Available Not Available No t Available bupropion HCl XL 150 mg 24 hr tablet, extended release TAKE 1 TABLET BY MOUTH EVERY DAY IN THE MORNING active Not Available Not Available No t Available budesonide-fo rmoterol HFA 160 mcg-4.5 mcg/actuation aerosol inhaler INHALE 2 PUFFS BY MOUTH TWICE A DAY RINSE MOUTH AFTER USE active Not Available Not Available No t Available potassium chloride ER 20 mEq tablet,extend ed release active Not Available Not Available N ot Available Spiriva Respimat 1.25 mcg/actuation solution for inhalation INHALE 2 PUFFS DAILY IN ADDITION TO SYMBICORT active Not Available Not Available No t Available Fasenra Pen 30 mg/mL subcutaneous auto-injector active Not Available Not Availabl e Not Available Vitals Date Recorded Body height Body mass index (BMI) Body weight Provider Name and Address Organization Details Last Updated DateTime 11/09/2023 160.02 cm 24.8 kg/m2 41710.93 g Catina Jones [place] - [facility] 11/09/2023 10:41:07 Social History None recorded. Functional Status None recorded. Mental Status None recorded. Family History Nothing Reported. Medical History No medical history recorded. Gynecological HistoryNo gynecological history recorded. Obstetrics History GPAL:G 0 P 0 0 0 0 Past Encounters Encounter ID Performer Location Encounter Start Date Encounter Closed Date Diagnosis/Indication Diagnosis SNOMED-CT Code Diagnosis ICD10 Code Diagnosis Note [id number] KATHY TELLO MD [facility] [address] [address] 11/09/2023 10:00:32 11/09/2023 10:53:20 Ulcerative rhinitis 54276337 J34.81 Perforatio n of nasal septum 16417717 J34.89 Cocaine abuse 91216145 F 14.10 Health Concerns Section Related Observation LastModified by Organization Felix pedersen LastModified Time None Recorded Concern Status LastModified by Organization Details LastModified Time None Recorded Advance Directives Directive None Recorded Payers Encounter Date Sequence Insurance Name Policy Number Policy Pollard Covered Member ID Pollard Member ID Guarantor Name 11/09/2023 1 [facility] - HEALTH NET PLAN (MEDICAID HMO) JAIDAALEXAAnu Paz Tyler Ballard [id number] Paz Ballard Notes Date Note Type Note Provider Name and Address Organization Details Recorded Time 11/09/2023 text/html feels insect in nose that spit liquidonset August 2023 R>Lhas a tooth infection - tx with 7 days of abx11/06/23 ER [facility] rx clinda and levofloxacin for nose infection intranasal cocaine twice monthly, most recently yesterdaythe cocaine 'kills the bugs that go in the skin' PCP rx keflex in using nasal saline several times daily KATHY TELLO MD [address] [place] [address], [phone] [place] - [facility] 11/09/2023 10:54:43 OBGyn Episode No OBEpisode recorded.
== END 2024-04-22 11:21 | disposition home or self-care (01) ==
PROVIDERS: PCP Nurse Practitioner Family; Visit Provider Nurse Practitioner Family
DX: Z00.00 Encounter for general adult medical examination without abnormal findings (principal); R03.0 Elevated blood-pressure reading, without diagnosis of hypertension; F41.1 Generalized anxiety disorder; F10.20 Alcohol dependence, uncomplicated; F32.9 Major depressive disorder, single episode, unspecified; G47.9 Sleep disorder, unspecified; Z12.31 Encounter for screening mammogram for malignant neoplasm of breast; R21 Rash and other nonspecific skin eruption; E66.9 Obesity, unspecified; Z23 Encounter for immunization

== ENCOUNTER → 2024-04-22 10:09 | Outpatient (BNVA) | payer OTHER, SELFPAY | PROVIDERS: PCP Nurse Practitioner Family; Visit Provider Nurse Practitioner Family | DX: Z00.00 Encounter for general adult medical examination without abnormal findings (principal); Z23 Encounter for immunization; R03.0 Elevated blood-pressure reading, without diagnosis of hypertension; F41.1 Generalized anxiety disorder; F32.9 Major depressive disorder, single episode, unspecified; G47.9 Sleep disorder, unspecified; R21 Rash and other nonspecific skin eruption; F10.20 Alcohol dependence, uncomplicated; E66.9 Obesity, unspecified | CPT/HCPCS: 90471; 90472; 90656; 90715; 96127; 99212; 99396 ==

== ENCOUNTER → 2024-04-25 09:04 | Outpatient (BNVA) | payer OTHER, SELFPAY | PROVIDERS: PCP Nurse Practitioner Family; Visit Provider Nurse Practitioner Family | DX: I10 Essential (primary) hypertension (principal) | CPT/HCPCS: 99211 ==

== ENCOUNTER 2024-04-29 12:14 | Outpatient (REF) | payer OTHER, SELFPAY ==
[2024-04-29 12:29] LABS: MANUAL DIFF FLAG NO
[2024-04-29 12:38] LABS: Basophils Absolute Auto 0.1 X10*3/uL (0.0-0.2); Basophils Percent Auto 0.8 % (0-2); Eosinophils Absolute Auto 0.2 X10*3/uL (0.0-0.4); Hematocrit 38.9 % (37.0-47.0); Hemoglobin 13.7 g/dl (12.0-16.0); Imm Gran Pct Auto 1.1 % (0.0-0.4); Lymphocytes Absolute Auto 2.7 X10*3/uL (1.2-4.9); Lymphocytes Percent Auto 29.4 % (20-40); Mean Corpuscular HGB Conc 35.2 g/dl (31.0-35.0); Mean Corpuscular Hemoglobin 29.7 pg (27.0-33.0); Mean Corpuscular Volume 84.4 fL (80.0-98.0); Monocytes Absolute Auto 0.7 X10*3/uL (0.1-1.2); Monocytes Percent Auto 7.2 % (2-11); Neutrophils Absolute Auto 5.4 x10*3/uL (2.0-8.3); Neutrophils Percent Auto 59.5 % (45-73); Platelet Count 261 X10*3/uL (160-400); Red Blood Count 4.61 X10*6/uL (4.20-5.50); Red Cell Distribution Width 14.6 % (11.0-16.0); White Blood Count 9.1 X10*3/uL (4.8-10.8)
[2024-04-29 12:45] LABS: Appearance Urine Clear; Color Urine Yellow; Glucose Urine UA Negative (Negative); Leukocyte Esterase Urine Small (1+) (Negative); Nitrite Urine Negative (Negative); UMIC TRIGGER UACC YES; Urine Blood Trace (Negative); Urine Ketones Negative (Negative); Urine Protein Trace mg/dL (Neg-Trace)
[2024-04-29 12:48] LABS: Bacteria Urine Trace (None Seen); Hyaline Casts Urine 0-2 /LPF (0-2); UACC Culture Trigger YES
[2024-04-29 13:11] LABS: Alanine Aminotransferase 13 U/L (0-31); Albumin Level 4.7 g/dL (3.5-5.0); Alkaline Phosphatase 80 U/L (39-117); Anion Gap 14 (12-20); Aspartate Amino Transferase 17 U/L (5-31); Bilirubin Total 0.4 mg/dL (0.0-1.0); Blood Urea Nitrogen 8 mg/dL (9-16); Carbon Dioxide 26 mmol/L (22-29); Chloride 105 mmol/L (96-108); Cholesterol 220 mg/dL (<200); Estimated Glomerular Filt Rate > 60; Glucose Fasting 87 mg/dL (60-99); HDL Cholesterol 62 mg/dL (>40); LDL Cholesterol Calculated 132 mg/dL (<100); Potassium 3.6 mmol/L (3.3-5.1); Sodium 141 mmol/L (135-145); Total Protein 8.6 g/dL (6.5-8.0); Triglycerides 130 mg/dL (<150)
[2024-04-29 13:28] LABS: TSH reflex Free T4 0.89 uIU/mL (0.32-4.0); Vitamin D 25-OH Total 17.9 ng/mL (>30)
[2024-04-29 13:52] LABS: Microalbum/Creatinine Ratio Ur 33.1 ug/mg cr (<30)
--- OUTSIDE RECORDS SUMMARY | 2024-04-29 15:20 | XMS_ITS | Data Portability ---
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 I would attribute this to her intranasal cocaine exposure. She is currently being treated with clindamycin and levofloxacin through the emergency department at [facility]. I have recommended the addition of mupirocin [...] mupirocin 2 % topical ointment 2023 024 [facility]/Pharmacy #[id number], [address] [place], [address], 09/13/202 4 10:51:20 Patient TargetsNo targets recorded. Patient InstructionsNo instructions recorded. Reason for Referral None Reported. Problems Name Problem SNOMED Code Status Onset Date Resolution Date Notes Provider Name and Address Organization Details Recorded Time Ulcerative rhinitis 41055097 Active 024 KATHY TELLO MD 100 [facility], [place], [phone], [facility] - [facility] [place] 4 10:07:40 Perforation of nasal septum 58776389 Active 024 KATHY TELLO MD 100 [facility],[place] [address], [place], [phone], [facility] - [facility] [place] 4 10:50:36 Cocaine abuse 33391829 Active 024 KATHY TELLO MD [address] [place] [address],[place] [address], [place], [phone], [facility] - [facility] 4 10:50:43 Problem Notes None recorded. Procedures Surgical History Date Name Laterality Status Provider Name and Address Organization Details Recorded Time 11/09/2023 NasalEndos copy_DP completed KATHY TELLO MD [address] [place] [address], [phone], [facility] 11/08/2023 10:04:52 Imaging Results None recorded. Procedure [...] Updated DateTime 11/09/2023 160.02 cm 24.8 kg/m2 99659.93 g Catina Jones [place] - [facility] 11/09/2023 10:41:07 Social History None recorded. Functional Status None recorded. Mental Status None recorded. Family History Nothing Reported. Medical History No medical history recorded. Gynecological HistoryNo gynecological history recorded. Obstetrics History GPAL:G 0 P 0 0 0 0 Past Encounters Encounter ID Performer Location Encounter Start Date Encounter Closed Date Diagnosis/Indication Diagnosis SNOMED-CT Code Diagnosis ICD10 Code Diagnosis Note [id number] KATHY TELLO MD [facility] [address] [phone] 11/09/2023 10:00:32 11/09/2023 10:53:20 Ulcerative rhinitis 33494289 J34.81 Perforatio n of nasal septum 91335860 J34.89 Cocaine abuse 90502983 F 14.10 Health Concerns Section Related Observation LastModified by Organization Felix pedersen LastModified Time None Recorded Concern Status LastModified by Organization Details LastModified Time None Recorded Advance Directives Directive None Recorded Payers Encounter Date Sequence Insurance Name Policy Number Policy Pollard Covered Member ID Pollard Member ID Guarantor Name 11/09/2023 1 [facility] - HEALTH NET PLAN (MEDICAID HMO) JAIDAALEXAAnu Paz Tyler Ballard [id number] Paz Ballard Notes Date Note Type Note Provider Name and Address Organization Details Recorded Time 11/09/2023 text/html feels insect in nose that spit liquidonset August 2023 R>Lhas a tooth infection - tx with 7 days of abx11/06/23 ER [facility] rx clinda and levofloxacin for nose infection intranasal cocaine twice monthly, most recently yesterdaythe cocaine 'kills the bugs that go in the skin' PCP rx keflex in using nasal saline several times daily KATHY TELLO MD [address] [place] [address], [phone] [place] - [facility] 11/09/2023 10:54:43 OBGyn Episode No OBEpisode recorded.
== END 2024-04-29 12:15 | disposition home or self-care (01) ==
LOC: HO.LAB 12:14
PROVIDERS: PCP Nurse Practitioner Family; Visit Provider Nurse Practitioner Family
DX: Z00.00 Encounter for general adult medical examination without abnormal findings (principal)
CPT/HCPCS: 36415; 80053; 80061; 81001; 82043; 82306; 82570; 84443; 85025; 87086

== ENCOUNTER 2024-04-30 10:43 | Outpatient (AMB) | payer OTHER, SELFPAY ==
--- NOTE | 2024-04-30 10:50 | A.OFFPC_ITS ---
Vital Signs 04/30/24 10:58 Height 5 ft 4 in Weight 185 lb BMI 31.8 BP 190/90 H Blood Pressure Location Lt brachial Position Sitting Respiration 16 Pulse 76 Pulse Source Pulse Oximeter Temp 98.5 F Temp Source Oral Pulse Oximetry (%) 98 Oxygen Delivery Method Room Air Intake Visit Reasons: 1 wks PCP HTN, labs review Intake Note: patient here for follow up on HTN and lab [facility] Assistant Required: No Is last menstrual period known: No (IUD) Post menopausal: No Patient : No Allergies bee pollen [BEE STINGS] Allergy (Severe, Verified 04/30/24 10:54) ANAPHYLAXIS animal dander Allergy (Intermediate, Verified 04/30/24 10:54) Cough Tobacco use date assessed: 04/30/24 Dental Screening Dental Screen Date: 04/30/24 Did you have a dental visit in the last 12 months?: Yes Did you have a dental problem in the last 6 months where you did not have access to dental care?: No Was dental information given to patient?: Patient has dentist HPI HPI Comments History of Present Illness Details 43-year-old female presents for hyperten chapito and review of recent lab results follow-up. She notes that she has not started taking metoprolol since it was prescribed. She cut down drinking and eventually stopped drinking 2 days ago and thought that would improve her blood pressure. She has been taking her psychotropic medications as prescribed without adverse reactions. She admits to making healthy dietary choices, including low-sodium diet. No acute symptoms at this time. [facility] Medical History Laceration of liver Osteoarthritis, hand Elevation of levels of liver transaminase levels Asthma Depressed Surgical History Previous section Family History Mother Cirrhosis of liver Paternal Grandfather Pre-diabetes Social History Household Members: Spouse Housing: House Do you presently have visiting nurse or other home services: No 75 years or older and lives alone: No Alcohol intake: current Alcohol intake frequency: holidays/special occasions only Patient Tobacco Use Status: Former Tobacco user Tobacco use type: Cigarette Years Smoked: Quit 10 years e-Cigarette/Vaping Use: Former Use Second Hand Smoke Exposure: No Substance Use Type: Crack/Cocaine and Heroin service: No Current occupational status: employed 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 Cognitive needs: No Hearing needs: No Vision needs: No Questionnaire Thrive Questionnaire Date Thrive assessed: 04/19/24 I am a: Patient What is your living situation today?: I choose not to answer this question Within the past 12 months, did the food you bought not last and you didn't have the money to get more?: Never true Within the past 12 months, did you worry whether your food would run out before you got money to buy more?: Never true Do you have trouble paying for medicines?: No Do you have trouble getting transportation to medical appointments?: I choose not to answer this question Do you have trouble paying your heating and electricity bill?: I choose not to answer this question Do you have trouble taking care of your child, family member or friend?: I choose not to answer this question Do you have trouble with day-to-day activities such as bathing, preparing meals, shopping, managing finances, etc.?: I choose not to answer this question Are you currently unemployed and looking for a job?: I choose not to answer this question Are you interested in more education?: I choose not to answer this question Please select the resources that you would like help with: None Currently or been in a relationship where the following occur: No concerns reported THRIVE Score: 0 KARLI-7 AMB Questionnaire KARLI-7 Date KARLI - 7 assessed: 04/22/24 Source: Developed by Drs. Anish Alex, Ashleigh Dow, Jeremy Davis and colleagues, with an educational diego from [email or web address]. Review of Systems Const Details: Const Denies chills, Denies fatigue, Denies fever(s), Denies headache(s) and Denies weakness ENT Denies dizziness and Denies headache(s) Card Denies chest pain, Denies lightheadedness, Denies dyspnea and Denies other (Palpitations) Resp Denies cough, Denies dyspnea, Denies wheezing and Denies other ( shortness of br eath) GI Denies abdominal pain, Denies melena, Denies hematochezia, Denies change in bowel habits, Denies dyspepsia and Denies nausea Denies hematuria and Denies dysuria Musc Denies abnormal gait, Denies myalgias, Denies arthralgias, Denies numbness and Denies tingling Skin/Breast Denies rash, Denies unusual bruising and Denies wounds Neuro Denies abnormal gait, Denies dizziness, Denies headache(s), Denies memory loss, Denies numbness, Denies Sensory deficit (Neuro), Denies tingling and Denies weakness Psych Denies anxiety, Denies depression, Denies memory loss Endo Denies cold intolerance, Denies fatigue, Denies heat intolerance, Denies polydipsia and Denies polyuria Aller/Immun Denies wheezing Physical exam (Primary Care) Vital Signs: Last Vital Signs Temp 98.5 F 04/30/24 10:58 Pulse 76 04/30/24 10:58 Resp 16 04/30/24 10:58 BP 173/73 H 04/30/24 10:58 Pulse Ox 98 04/30/24 10:58 Oxygen Delivery Method Room Air 04/30/24 10:58 BMI result Body Mass Index 31.8 Tobacco/Smoking Status: Tobacco use Status Tobacco use date assessed 04/30/24 04/30/24 11:03 Patient Tobacco Use Status Former Tobacco user 04/30/24 10:51 Tobacco use type Cigarette 04/30/24 10:51 e-Cigarette/Vaping Use Former Use 04/30/24 10:51 Thrive Assessment: Date of Thrive Assessment Date Thrive assessed 04/19/24 04/30/24 10:51 Currently or been in a relationship where the following occur: No concerns reported Const Other: General: no acute distress and well developed Nutritional Appearance: well nourished Orientation/consciousness: patient oriented x3 [facility] Head: Yes normocephalic and Yes atraumatic Eyes General: appearance normal, both eyes and all related structures Pupils: Equal, round and reactive pupils present EOM: EOMs intact bilaterally Resp Effort & Inspection: normal respiratory effort Auscultation: clear to auscultation bilaterally Cardio Rate: regular rate Rhythm: regular rhythm Heart sounds: S1 normal heart sound present, S2 normal heart sound present, no gallops, no murmurs and no rubs GI Palpation (GI): No Abdominal aortic bruit present, Soft to palpation, nontender, No hepatosplenomegaly present and No Rebound tenderness present Auscultation: normal bowel sounds General: Yes no CVA tenderness Back/Spine/Pelvis Back: no CVA tenderness Cervical Spine: cervical ROM normal and No Cervical spine tenderness Thoracic/Lumbar Spine: thoraco-lumbar ROM normal, No pain with thoraco-lumbar ROM, No thoracic spinal tenderness and No lumbar spinal tenderness Extrem General: Yes normal to inspection, No edema and No calf tenderness Skin General: warm and dry. Normal skin color. Normal skin turgor Neuro General: patient oriented x3, gait normal and no focal neuro deficit Cranial nerves: Yes Equal, round and reactive pupils present Cognition (Neuro): normal cognition Gait exam (Neuro): Normal gait present Sensory Exam: No Sensory deficit (Neuro) Psych Appearance: grossly normal Affect: normal affect Attitude: cooperative Thought process: Normal thought process present Coding Level of Care Code Est Pt Level 4 (20583) Diagnoses Hypertension I10 Hypercholesterolemia E78.00 Microalbuminuria R80.9 Vitamin D deficiency E55.9 Assessment & Plan Assessment & Plan (1) Hypertension: Code(s): I10 - Essential (primary) hypertension Category: Medical Plan: Resting blood pressure is 190/90, above goal of less than 140/90. Advised to start metoprolol as prescribed. Low-sodium diet encouraged. Follow-up in 1 week or sooner with symptoms or concerns. Verbalized understanding and agreed with treatment plan. (2) Hypercholesterolemia: Code(s): E78.00 - Pure hypercholesterolemia, unspecified Category: Medical Plan: Recent total cholesterol and LDL levels slightly elevated, 220 and 132 respectively. Advised to limit foods high in saturated fat and avoid foods high in trans fat. Routine exercise encouraged. Advised to perform fasting lipid panel blood work 2-3 days before next visit. Follow-up in 8 weeks. Verbalized understanding and agreed with treatment plan. (3) Microalbuminuria: Code(s): R80.9 - Proteinuria, unspecified Category: Medical Plan: Recent urine microalbumin/creatinine ratio is slightly elevated, 33.1. Likely dehydration. Adequate hydration encouraged. Will recheck urine microalbumin/creatinine ratio and make changes as needed. Verbalized understanding and agreed with treatment plan. (4) Vitamin D deficiency: Code(s): E55.9 - Vitamin D deficiency, unspecified Category: Medical Plan: Recent vitamin D level is significantly low, 17.9. Vitamin D3 1250 mcg ordered; advised to take as prescribed and same-day each week. Will recheck vitamin-D levels in 8 weeks. Verbalized understanding and agreed with treatment plan. Medications: New cholecalciferol (vitamin D3) 1,250 mcg PO QWEEK 8 weeks 8 tabs 0RF Patient Instructions: Labs reviewed with the patient. Urine culture is pending.
[2024-04-30 10:58] VITALS: BP 190/90; PULSE 76; RESP 16; TEMP 36.9; O2SAT 98; BMI 31.8
== END 2024-04-30 11:34 | disposition home or self-care (01) ==
PROVIDERS: PCP Nurse Practitioner Family; Visit Provider Nurse Practitioner Family
DX: I10 Essential (primary) hypertension (principal); E78.00 Pure hypercholesterolemia, unspecified; R80.9 Proteinuria, unspecified; E55.9 Vitamin D deficiency, unspecified

== ENCOUNTER → 2024-04-30 10:43 | Outpatient (BNVA) | payer OTHER, SELFPAY | PROVIDERS: PCP Nurse Practitioner Family; Visit Provider Nurse Practitioner Family | DX: I10 Essential (primary) hypertension (principal); E78.00 Pure hypercholesterolemia, unspecified; R80.9 Proteinuria, unspecified; E55.9 Vitamin D deficiency, unspecified | CPT/HCPCS: 99212 ==

== ENCOUNTER → 2024-05-31 10:45 | Outpatient (BNV) | payer OTHER, SELFPAY | PROVIDERS: PCP Nurse Practitioner Family; Visit Provider Internal Medicine | DX: Z12.31 Encounter for screening mammogram for malignant neoplasm of breast (principal) | CPT/HCPCS: 77063; 77067 ==

== ENCOUNTER 2024-05-31 10:53 | Outpatient (REF) | payer OTHER, SELFPAY ==
--- OUTSIDE RECORDS SUMMARY | 2024-05-31 10:55 | XMS_ITS | Data Portability ---
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 I would attribute this to her intranasal cocaine exposure. She is currently being treated with clindamycin and levofloxacin through the emergency department at [facility]. I have recommended the addition of mupirocin [...] mupirocin 2 % topical ointment [address] [facility]/Pharmacy #[id number], [address] [place], [address], 09/13/202 4 10:51:20 Patient TargetsNo targets recorded. Patient InstructionsNo instructions recorded. Reason for Referral None Reported. Problems Name Problem SNOMED Code Status Onset Date Resolution Date Notes Provider Name and Address Organization Details Recorded Time Ulcerative rhinitis 43828781 Active 024 KATHY TELLO MD 100 [facility], [place], [address], [facility] - [facility] [place] 4 10:07:40 Perforation of nasal septum 36236134 Active 024 KATHY TELLO MD 100 [facility],[place] [address], [place], [phone], [facility] - [facility] [place] 4 10:50:36 Cocaine abuse 81968587 Active 024 KATHY TELLO MD [address] [place] [address],[place] [address], [place], [phone], [facility] - [facility] 4 10:50:43 Problem Notes None recorded. Procedures Surgical History Date Name Laterality Status Provider Name and Address Organization Details Recorded Time 11/09/2023 NasalEndos copy_DP completed KATHY TELLO MD [address] [place] [address], [phone], [facility] 11/08/2023 10:04:52 Imaging Results None recorded. [...] Updated DateTime 11/09/2023 160.02 cm 24.8 kg/m2 99705.93 g Catina Jones [place] - [facility] 11/09/2023 10:41:07 Social History None recorded. Functional Status None recorded. Mental Status None recorded. Family History Nothing Reported. Medical History No medical history recorded. Gynecological HistoryNo gynecological history recorded. Obstetrics History GPAL:G 0 P 0 0 0 0 Past Encounters Encounter ID Performer Location Encounter Start Date Encounter Closed Date Diagnosis/Indication Diagnosis SNOMED-CT Code Diagnosis ICD10 Code Diagnosis Note [id number] KATHY TELLO MD [facility] [address] [address] 11/09/2023 10:00:32 11/09/2023 10:53:20 Ulcerative rhinitis 37834653 J34.81 Perforatio n of nasal septum 39908215 J34.89 Cocaine abuse 82102675 F 14.10 Health Concerns Section Related Observation LastModified by Organization Felix pedersen LastModified Time None Recorded Concern Status LastModified by Organization Details LastModified Time None Recorded Advance Directives Directive None Recorded Payers Encounter Date Sequence Insurance Name Policy Number Policy Pollard Covered Member ID Pollard Member ID Guarantor Name 11/09/2023 1 [facility] - HEALTH NET PLAN (MEDICAID HMO) JAIDAALEXAAnu Paz Tyler Ballard [id number] Paz Ballard Notes Date Note Type Note Provider Name and Address Organization Details Recorded Time 11/09/2023 text/html feels insect in nose that spit liquidonset August 2023 R>Lhas a tooth infection - tx with 7 days of abx11/06/23 ER [facility] rx clinda and levofloxacin for nose infection intranasal cocaine twice monthly, most recently yesterdaythe cocaine 'kills the bugs that go in the skin' PCP rx keflex in using nasal saline several times daily KATHY TELLO MD [address] [place] [address], [phone] [place] - [facility] 11/09/2023 10:54:43 OBGyn Episode No OBEpisode recorded.
== END 2024-05-31 10:54 | disposition home or self-care (01) ==
LOC: HO.MAMMO 10:53
PROVIDERS: PCP Nurse Practitioner Family; Visit Provider Nurse Practitioner Family
DX: Z12.31 Encounter for screening mammogram for malignant neoplasm of breast (principal)
CPT/HCPCS: 77063; 77067

== ENCOUNTER 2024-08-14 11:35 | Outpatient (AMB) | payer OTHER, SELFPAY ==
--- NOTE | 2024-08-14 11:42 | MHC.PC.OV ---
Vital Signs 08/14/24 11:46 Height 5 ft 4 in Weight 199 lb BMI 34.2 BP 177/94 H Blood Pressure Location Lt brachial Position Sitting Pulse 95 Pulse Source Pulse Oximeter Temp 98.1 F Temp Source Temporal Artery Scan Pulse Oximetry (%) 98 Oxygen Delivery Method Room Air Intake Visit Reasons: STOMACH PAIN/LOWERBACK PAIN Intake Note: Paz presents in the office today for stomach and lower back pain. Allergies bee pollen (BEE STINGS) Allergy (Severe, Verified 08/14/24 11:44) ANAPHYLAXIS animal dander Allergy (Intermediate, Verified 08/14/24 11:44) Cough Tobacco use date assessed: 08/14/24 Dental Screening Dental Screen Date: 08/14/24 Did you have a dental visit in the last 12 months?: Yes Did you have a dental problem in the last 6 months where you did not have access to dental care?: No Was dental information given to patient?: Patient has dentist HPI HPI Comments History of Present Illness Details This is a 44-year-old female with a past medical history of hypertension, hyperlipidemia, alcohol dependence, cocaine abuse, anxiety, depression, asthma and hypothyroidism presenting for a problem visit. Patient endorses chronic right upper quadrant abdominal pain. It is intermittent. This began 3 months ago. It is described as a dull ache with increase in intensity and sharpness while eating and after meals. It lasts no longer than 20 minutes after eating. It is associated with nausea. Patient denies acid reflux. She tried Tums, and it was ineffective. Reports occasionally drinking wine but no other alcohol you her use at this time. Denies blood in stools, diarrhea, hematemesis, weight loss. She also endorses chronic lower back pain described as achy and ggjy-[id number]-czfzfbah. She says this has been going on for awhile but is unsure the exact duration. It may bother her when she is sitting or walking. It does not wake her up at night. It feels better when she stretches her back. It does not radiate. There is no loss of bowel or bladder control or numbness or tingling in the saddle distribution. She denies trauma. She takes Tylenol as needed. Her blood pressure is uncontrolled. Today her blood pressure is 177/94. Denies headaches, blurry vision, chest pain or shortness of breath. Reports she is compliant with metoprolol tartrate 50 mg twice daily. She denies allergies to medications. She has a history of microalbuminuria. Normal TSH and creatinine and GFR 04/29/2024. ROS: Constitutional: No fevers, chills, fatigue or unexplained weight loss. Denies night sweats. Eyes: No vision changes, blurry vision, double vision Respiratory: No shortness of breath Cardiovascular: No chest pain, chest pressure or chest discomfort. No palpitations or pedal edema. Gastrointestinal: See HPI. No vomiting, diarrhea or blood in stools. Genitourinary: No dysuria, hematuria, urinary frequency. Neurologic: No headache, dizziness, syncope, unilateral weakness, ataxia, numbness or tingling in the extremities. Musculoskeletal: See HPI Skin: No rash or jaundice. Denies tick bites. Physical exam: Constitutional: Alert, in no distress. Eyes: Pupils are equal, round and reactive to light. Extraocular muscles intact. Anicteric. Neck: Supple, Full range of motion. No lymphadenopathy. Respiratory: Clear to auscultation. Cardiovascular: S1 S2 regular. No murmurs. Gastrointestinal: Abdomen soft, non-tender, non-distended. Normal bowel sounds. No palpable masses. Genitourinary: No costovertebral angle tenderness. Neurologic: No focal neurological deficits. Symmetric patellar reflexes. Negative straight leg raises bilaterally. Moves all extremities spontaneously. Sensation intact bilaterally. Lower extremity strength 5/5 bilaterally. Skin: No jaundice Musculoskeletal: Full range of motion of the spine. No midline spinal tenderness. There is mild tenderness of the paraspinal lumbar musculature. Extremities: Warm and well perfused. No clubbing, cyanosis or edema. [facility] Medical History (Updated 08/15/24 @ 08:49 by DI Rose) Right upper quadrant pain Chronic low back pain Low back pain Abdominal pain Laceration of liver Osteoarthritis, hand Elevation of levels of liver transaminase levels Asthma Depressed Surgical History Previous section Family History Mother Cirrhosis of liver Paternal Grandfather Pre-diabetes Social History (Updated 08/14/24 @ 11:45 by Margarita Paulson MA) Household Members: Spouse Housing: House Do you presently have visiting nurse or other home services: No Alcohol intake: current Alcohol intake frequency: holidays/special occasions only Patient Tobacco Use Status: Former Tobacco user Tobacco use type: Cigarette Years Smoked: Quit 10 years e-Cigarette/Vaping Use: Former Use Second Hand Smoke Exposure: No Substance Use Type: Crack/Cocaine and Heroin service: No Current occupational status: employed 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 Cognitive needs: No Hearing needs: No Vision needs: No Questionnaire Thrive Questionnaire Date Thrive assessed: 04/19/24 I am a: Patient What is your living situation today?: I choose not to answer this question Within the past 12 months, did the food you bought not last and you didn't have the money to get more?: Never true Within the past 12 months, did you worry whether your food would run out before you got money to buy more?: Never true Do you have trouble paying for medicines?: No Do you have trouble getting transportation to medical appointments?: I choose not to answer this question Do you have trouble paying your heating and electricity bill?: I choose not to answer this question Do you have trouble taking care of your child, family member or friend?: I choose not to answer this question Do you have trouble with day-to-day activities such as bathing, preparing meals, shopping, managing finances, etc.?: I choose not to answer this question Are you currently unemployed and looking for a job?: I choose not to answer this question Are you interested in more education?: I choose not to answer this question Please select the resources that you would like help with: None Currently or been in a relationship where the following occur: No concerns reported THRIVE Score: 0 KARLI-7 AMB Questionnaire KARLI-7 Date KARLI - 7 assessed: 04/22/24 Source: Developed by Drs. Anish Alex, Ashleigh Dow, Jeremy Davis and colleagues, with an educational diego from [employer]. Physical exam (Primary Care) Vital Signs: Last Vital Signs Temp 98.1 F 08/14/24 11:46 Pulse 95 08/14/24 11:46 BP 177/94 H 08/14/24 11:46 Pulse Ox 98 08/14/24 11:46 Oxygen Delivery Method Room Air 08/14/24 11:46 BMI result Body Mass Index 34.2 Tobacco/Smoking Status: Tobacco use Status Tobacco use date assessed 08/14/24 08/14/24 11:46 Patient Tobacco Use Status Former Tobacco user 08/14/24 11:45 Tobacco use type Cigarette 08/14/24 11:45 e-Cigarette/Vaping Use Former Use 08/14/24 11:45 Thrive Assessment: Date of Thrive Assessment Date Thrive assessed 04/19/24 08/14/24 11:43 Currently or been in a relationship where the following occur: No concerns reported Coding Level of Care Code Est Pt Level 4 (11276) Complex EM visit Add On G2211 Diagnoses Hypertension I10 Right upper quadrant pain R10.11 Chronic low back pain M54.50; G89.29 Assessment & Plan Assessment & Plan (1) Hypertension: Code(s): I10 - Essential (primary) hypertension Category: Medical Plan: Recommended low-sodium diet, avoidance of caffeine and other stimulants, avoidance of alcohol and tobacco products. Continue metoprolol tartrate 50 mg twice a day. Add losartan 50 mg daily. Side effects including angioedema, allergic reaction, hyperkalemia, dizziness and fatigue reviewed. Recommend follow up in 1 month with PCP and rechecking renal function and electrolytes at that time. (2) Right upper quadrant pain: Code(s): R10.11 - Right upper quadrant pain Category: Medical Plan: Differential includes cholelithiasis, GERD/gastritis, Helicobacter pylori, musculoskeletal pain. No red flags concerning for malignancy provided in the history or on physical exam. Nonsurgical abdomen. Advised patient that I will order an ultrasound for further evaluation in addition to blood work including metabolic function, pancreatic enzymes in testing for Helicobacter pylori. Check UA and culture. Patient reports she is not sexually active, but I will obtain a serum HCG since she is going to have an x-ray completed. (3) Chronic low back pain: Code(s): M54.50 - Low back pain, unspecified; G89.29 - Other chronic pain Category: Medical Plan: No neurologic red flags. Proceed with x-ray of the lumbar spine. Pending results discuss referral to physical therapy. Plan Follow up in 1 month with PCP. Orders: Orders Comprehensive Met. Panel 08/14/24 M54.50 - Low back pain, unspecified, R10.9 - Unspecified abdominal pain Lipase 08/14/24 M54.50 - Low back pain, unspecified, R10.9 - Unspecified abdominal pain Complete Blood Count no Diff 08/14/24 M54.50 - Low back pain, unspecified, R10.9 - Unspecified abdominal pain TSH reflex Free T4 08/14/24 M54.50 - Low back pain, unspecified, R10.9 - Unspecified abdominal pain HCG Quantitative 08/14/24 R10.9 - Unspecified abdominal pain Amylase 08/14/24 M54.50 - Low back pain, unspecified, R10.9 - Unspecified abdominal pain H pylori Ag Stool 08/14/24 R10.9 - Unspecified abdominal pain UA w Microscopic 08/14/24 R10.9 - Unspecified abdominal pain, R39.9 - Unspecified symptoms and signs involving the genitourinary system Urine Culture 08/14/24 R10.9 - Unspecified abdominal pain, R39.9 - Unspecified symptoms and signs involving the genitourinary system US abdomen limited Today R10.11 - Right upper quadrant pain XR lumbar spine 2-3V Today G89.29 - Other chronic pain, M54.50 - Low back pain, unspecified Medications: New losartan 50 mg PO DAILY 90 tabs 0RF
[2024-08-14 11:46] VITALS: BP 177/94; PULSE 95; TEMP 36.7; O2SAT 98; BMI 34.2
--- OUTSIDE RECORDS SUMMARY | 2024-08-14 13:08 | XMS_ITS | Data Portability ---
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 I would attribute this to her intranasal cocaine exposure. She is currently being treated with clindamycin and levofloxacin through the emergency department at [facility]. I have recommended the addition of mupirocin [...] mupirocin 2 % topical ointment 2023 024 [facility]/Pharmacy #[id number], [address] [place], [address], 09/13/202 4 10:51:20 Patient TargetsNo targets recorded. Patient InstructionsNo instructions recorded. Reason for Referral None Reported. Problems Name Problem SNOMED Code Status Onset Date Resolution Date Notes Provider Name and Address Organization Details Recorded Time Ulcerative rhinitis 76085817 Active 024 KATHY TELLO MD 100 [facility],[address] [address] [address], [place], [phone], [facility] 4 10:07:40 Perforation of nasal septum 57203929 Active 024 KATHY TELLO MD [address] [address], [place], [address], [facility] 4 10:50:36 Harmful pattern of use of cocaine 94224313 Active 024 KATHY TELLO MD [address] [address], [place], [address], [facility] 4 10:50:43 Problem Notes None recorded. Procedures Surgical History Date Name Laterality Status Provider Name and Address Organization Details Recorded Time 11/09/2023 NasalEndos copy_DP completed KATHY TELLO MD [address] [place] [address], [phone], [facility] 11/08/2023 10:04:52 Imaging Results None recorded. Procedure [...] Updated DateTime 11/09/2023 160.02 cm 24.8 kg/m2 88448.93 g Catina Jones [place] - [facility] 11/09/2023 10:41:07 Social History None recorded. Functional Status None recorded. Mental Status None recorded. Family History Nothing Reported. Medical History No medical history recorded. Gynecological HistoryNo gynecological history recorded. Obstetrics History GPAL:G 0 P 0 0 0 0 Past Encounters Encounter ID Performer Location Encounter Start Date Encounter Closed Date Diagnosis/Indication Diagnosis SNOMED-CT Code Diagnosis ICD10 Code Diagnosis Note [id number] KATHY TELLO MD [facility] [address] [address] 11/09/2023 10:00:32 11/09/2023 10:53:20 Ulcerative rhinitis 74938586 J34.81 Perforatio n of nasal septum 94200068 J34.89 Harmful pa ttern of use of cocaine 63681331 F14.10 Health Concerns Section Related Observation LastModified by Organization Detai ls LastModified Time None Recorded Concern Status LastModified by Organization Details LastModified Time None Recorded Advance Directives Directive None Recorded Payers Insurance Date Sequence Insurance Name Policy Number Policy Pollard Covered Member ID Pollard Member ID Guarantor Name 11/09/2023 1 [place] [facility] Paz Scott Elio [id number] Paz Scott Elio 11/09/2023 1 [facility] - HEALTH NET PLAN (MEDICAID HMO) [facility] P[facility] Scott Elio [id number] Paz G Elio Notes Date Note Type Note Provider Name and Address Organization Details Recorded Time 11/09/2023 text/html feels insect in nose that spit liquidonset August 2023 R>Lhas a tooth infection - tx with 7 days of abx11/06/23 ER [facility] rx clinda and levofloxacin for nose infection intranasal cocaine twice monthly, most recently yesterdaythe cocaine 'kills the bugs that go in the skin' PCP rx keflex in using nasal saline several times daily KATHY TELLO MD [address] [place] [address], [phone], [facility] - [facility] 11/09/2023 10:54:43 OBGyn Episode No OBEpisode recorded.
== END 2024-08-14 12:32 | disposition home or self-care (01) ==
LOC: HO.HMCFM 11:36
PROVIDERS: PCP Nurse Practitioner Family; Visit Provider Physician Assistant Medical
DX: I10 Essential (primary) hypertension (principal); R10.11 Right upper quadrant pain; M54.50 Low back pain, unspecified; G89.29 Other chronic pain

== ENCOUNTER → 2024-08-14 11:35 | Outpatient (BNVA) | payer OTHER, SELFPAY | PROVIDERS: PCP Nurse Practitioner Family; Visit Provider Physician Assistant Medical | DX: R10.11 Right upper quadrant pain (principal); I10 Essential (primary) hypertension; M54.50 Low back pain, unspecified; G89.29 Other chronic pain; Z79.899 Other long term (current) drug therapy | CPT/HCPCS: 99212 ==

== ENCOUNTER 2024-08-14 12:40 | Outpatient (REF) | payer OTHER, SELFPAY ==
[2024-08-14 13:46] LABS: Hematocrit 38.8 % (37.0-47.0); Hemoglobin 13.4 g/dl (12.0-16.0); Mean Corpuscular HGB Conc 34.5 g/dl (31.0-35.0); Mean Corpuscular Hemoglobin 29.3 pg (27.0-33.0); Mean Corpuscular Volume 84.9 fL (80.0-98.0); Mean Platelet Volume 9.7 fL (9.4-12.3); Platelet Count 279 X10*3/uL (160-400); Red Blood Count 4.57 X10*6/uL (4.20-5.50); Red Cell Distribution Width 13.2 % (11.0-16.0); White Blood Count 9.1 X10*3/uL (4.8-10.8)
[2024-08-14 14:01] LABS: Appearance Urine Clear; Color Urine Dark Yellow; Glucose Urine UA Negative (Negative); Leukocyte Esterase Urine Small (1+) (Negative); Nitrite Urine Negative (Negative); UMIC TRIGGER UA YES; Urine Blood Negative (Negative); Urine Ketones Trace mg/dL (Negative); Urine Protein Trace mg/dL (Neg-Trace)
[2024-08-14 14:13] LABS: Alanine Aminotransferase 41 U/L (0-31); Alkaline Phosphatase 80 U/L (39-117); Amylase 48 U/L (28-100); Anion Gap 11 (12-20); Aspartate Amino Transferase 25 U/L (5-31); Bilirubin Total 0.3 mg/dL (0.0-1.0); Blood Urea Nitrogen 8 mg/dL (9-16); Calcium 9.3 mg/dL (8.4-10.2); Carbon Dioxide 27 mmol/L (22-29); Chloride 107 mmol/L (96-108); Estimated Glomerular Filt Rate > 60; Glucose Random 97 mg/dL (60-115); Lipase 26 U/L (8-78); Potassium 3.6 mmol/L (3.3-5.1); Sodium 141 mmol/L (135-145); Total Protein 7.9 g/dL (6.5-8.0)
[2024-08-14 14:17] LABS: Bacteria Urine None Seen (None Seen); Hyaline Casts Urine 0-2 /LPF (0-2); RBC Urine 0-2 /HPF (0-2); WBC Urine 0-5 /HPF (0-5)
[2024-08-14 14:31] LABS: HCG Quantitative < 2 mIU/mL; TSH reflex Free T4 1.36 uIU/mL (0.32-4.0)
== END 2024-08-14 12:41 | disposition home or self-care (01) ==
LOC: HO.WFDLDS 12:40
PROVIDERS: Visit Provider Physician Assistant Medical
DX: R39.9 Unspecified symptoms and signs involving the genitourinary system (principal); M54.50 Low back pain, unspecified; R10.9 Unspecified abdominal pain
CPT/HCPCS: 36415; 80053; 81001; 82150; 83690; 84443; 84702; 85027; 87086; 87338

== ENCOUNTER 2024-08-27 14:33 | Outpatient (REF) | payer OTHER, SELFPAY ==
--- OUTSIDE RECORDS SUMMARY | 2024-08-28 14:36 | XMS_ITS | Data Portability ---
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 I would attribute this to her intranasal cocaine exposure. She is currently being treated with clindamycin and levofloxacin through the emergency department at [place]. I have recommended the addition of mupirocin [...] mupirocin 2 % topical ointment 2023 024 [facility]/Pharmacy #[id number], [address] [place], [address], 09/13/202 4 10:51:20 Patient TargetsNo targets recorded. Patient InstructionsNo instructions recorded. Reason for Referral None Reported. Problems Name Problem SNOMED Code Status Onset Date Resolution Date Notes Provider Name and Address Organization Details Recorded Time Ulcerative rhinitis 96772266 Active 024 KATHY TELLO MD 100 [facility],[place] [address], [place], [phone], [facility] - [facility] 4 10:07:40 Perforation of nasal septum 78923498 Active 024 KATHY TELLO MD [address] [address], [place], [address], [facility] - [facility] [place] 4 10:50:36 Harmful pattern of use of cocaine 15329991 Active 024 KATHY TELLO MD 100 [facility],[address] [address], [place], [address], [facility] - [facility] [place] 4 10:50:43 Problem Notes None recorded. Procedures Surgical History Date Name Laterality Status Provider Name and Address Organization Details Recorded Time 11/09/2023 NasalEndos copy_DP completed KATHY TELLO MD [address] [place] [address], [place], [phone], [facility] 11/08/2023 10:04:52 Imaging Results None recorded. [...] Updated DateTime 11/09/2023 160.02 cm 24.8 kg/m2 56135.93 g Catina Jones [place] - [facility] 11/09/2023 10:41:07 Social History None recorded. Functional Status None recorded. Mental Status None recorded. Family History Nothing Reported. Medical History No medical history recorded. Gynecological HistoryNo gynecological history recorded. Obstetrics History GPAL:G 0 P 0 0 0 0 Past Encounters Encounter ID Performer Location Encounter Start Date Encounter Closed Date Diagnosis/Indication Diagnosis SNOMED-CT Code Diagnosis ICD10 Code Diagnosis Note [id number] KATHY TELLO MD [facility] [address] [address] 11/09/2023 10:00:32 11/09/2023 10:53:20 Ulcerative rhinitis 38906672 J34.81 Perforatio n of nasal septum 49880147 J34.89 Harmful pa ttern of use of cocaine 28083957 F14.10 Health Concerns Section Related Observation LastModified by Organization Detai ls LastModified Time None Recorded Concern Status LastModified by Organization Details LastModified Time None Recorded Advance Directives Directive None Recorded Payers Insurance Date Sequence Insurance Name Policy Number Policy Pollard Covered Member ID Pollard Member ID Guarantor Name 11/09/2023 1 [place] [facility] Paz Scott Elio [id number] Paz Scott Elio 11/09/2023 1 [facility] (MEDICAID HMO) [facility] Paz Scott Elio [id number] Paz Scott Elio Notes Date Note Type Note Provider Name and Address Organization Details Recorded Time 11/09/2023 text/html feels insect in nose that spit liquidonset August 2023 R>Lhas a tooth infection - tx with 7 days of abx11/06/23 ER [place] rx clinda and levofloxacin for nose infection intranasal cocaine twice monthly, most recently yesterdaythe cocaine 'kills the bugs that go in the skin' PCP rx keflex in using nasal saline several times daily KATHY TELLO MD [address] [place] [address], [place], [phone], [facility] - [facility] 11/09/2023 10:54:43 OBGyn Episode No OBEpisode recorded.
== END 2024-08-27 14:34 | disposition home or self-care (01) ==
LOC: HO.LNP 14:33
PROVIDERS: Visit Provider Physician Assistant Medical
DX: R10.11 Right upper quadrant pain (principal)
CPT/HCPCS: 87338

== ENCOUNTER 2024-09-15 13:42 | Outpatient (AMB) | payer OTHER, SELFPAY ==
--- NOTE | 2024-09-15 13:45 | A.OFFPC_ITS ---
Vital Signs 09/15/24 13:51 09/15/24 14:20 Height 5 ft 4 in Weight 204 lb 2 oz BMI 35.0 BP 173/91 H 170/100 H Blood Pressure Location Rt brachial Rt brachial Position Sitting Sitting Respiration 16 Pulse 54 60 Pulse Source Palpation Auscultation Temp 98.5 F Temp Source Oral Pulse Oximetry (%) 98 Oxygen Delivery Method Room Air Intake Visit Reasons: BP and discuss anxiety meds with PCP MT Intake Note: patient here for follow up on BP and discuss anxiety meds. Fisher [place] Net Required: No Is last menstrual period known: No Post menopausal: No Patient : No Allergies bee pollen (BEE STINGS) Allergy (Severe, Verified 09/15/24 14:17) ANAPHYLAXIS animal dander Allergy (Intermediate, Verified 09/15/24 14:17) Cough Medication List - Last Reconciled 09/15/24 by Guillaume Sadler CNP acetaminophen (Tylenol Extra Strength) 1,000 mg PO TID PRN albuterol sulfate 90 mcg/actuation 1 inh inhalation Q4-6H PRN bupropion HCl XL 150 mg PO QAM buspirone 15 mg PO BID 30 days cholecalciferol (vitamin D3) 1,250 mcg PO QWEEK 28 days losartan 50 mg PO DAILY metoprolol tartrate 50 mg PO Q12H 90 days omeprazole 20 mg PO DAILY 90 days Tobacco use date assessed: 09/15/24 Dental Screening Dental Screen Date: 09/15/24 Did you have a dental visit in the last 12 months?: Yes Did you have a dental problem in the last 6 months where you did not have access to dental care?: No Was dental information given to patient?: Patient has dentist HPI HPI Comments History of Present Illness Details 44-year-old female presents with complai nts of increased anxiety and depressive symptoms for several months. She denies SI/HI/AH/VH. She requests adjustment of her psychotropic medications. She admits to taking her medications as prescribed without adverse reactions. She notes that she completed course of vitamin D3 1250 mcg weekly. [facility] Medical History (Updated 08/15/24 @ 08:49 by DI Rose) Right upper quadrant pain Chronic low back pain Low back pain Abdominal pain Laceration of liver Osteoarthritis, hand Elevation of levels of liver transaminase levels Asthma Depressed Surgical History Previous section Family History Mother Cirrhosis of liver Paternal Grandfather Pre-diabetes Social History (Updated 08/14/24 @ 11:45 by Margarita Paulson MA) Household Members: Spouse Housing: House Do you presently have visiting nurse or other home services: No 75 years or older and lives alone: No Alcohol intake: current Alcohol intake frequency: holidays/special occasions o nly Patient Tobacco Use Status: Former Tobacco user Tobacco use type: Cigarette Years Smoked: Quit 10 years e-Cigarette/Vaping Use: Former Use Second Hand Smoke Exposure: No Substance Use Type: Crack/Cocaine and Heroin service: No Current occupational status: employed 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 1. Little interest or pleasure in doing things: nearly every day 2. Feeling down, depressed, or hopeless: nearly every day 3. Trouble falling or staying asleep, or sleeping too much: nearly every day 4. Feeling tired or having little energy: nearly every day 5. Poor appetite or overeating: nearly every day 6. Feeling bad about yourself - or that you are a failure or have let yourself or your family down: nearly every day 7. Trouble concentrating on things, such as reading the newspaper or watching television: nearly every day 8. Moving or speaking so slowly that other people could have noticed. Or the opposite - being so fidgety or restless that you have been moving around a lot more than usual: nearly every day 9. Thoughts that you would be better off or of hurting yourself in some way: not at all Total score: 24 Depression Screening Interpretation: Positive Depression Screening Follow-up: Existing condition, In treatment and Change in Medication Depression Screening Done: Yes 83653 - PHQ-9 Billing: Yes Source: Developed by Drs. Anish Alex, Ashleigh Dow, Jeremy Davis and colleagues, with an educational diego from [employer]. Thrive Questionnaire Date Thrive assessed: 04/19/24 I am a: Patient What is your living situation today?: I choose not to answer this question Within the past 12 months, did the food you bought not last and you didn't have the money to get more?: Never true Within the past 12 months, did you worry whether your food would run out before you got money to buy more?: Never true Do you have trouble paying for medicines?: No Do you have trouble getting transportation to medical appointments?: I choose not to answer this question Do you have trouble paying your heating and electricity bill?: I choose not to answer this question Do you have trouble taking care of your child, family member or friend?: I choose not to answer this question Do you have trouble with day-to-day activities such as bathing, preparing meals, shopping, managing finances, etc.?: I choose not to answer this question Are you currently unemployed and looking for a job?: I choose not to answer this question Are you interested in more education?: I choose not to answer this question Please select the resources that you would like help with: None Currently or been in a relationship where the following occur: No concerns reported THRIVE Score: 0 AUDIT C Alcohol Use Questionnaire (AUDIT-C) 2. How many drinks containing alcohol do you have on a typical day when you are drinking?: 1 or 2 3. How often do you have six or more drinks on one occasion?: Never Total Score: 0 KARLI-7 AMB Questionnaire KARLI-7 Date KARLI - 7 assessed: 09/15/24 Feeling nervous, anxious, or on edge: 3 = Nearly every day Not being able to stop or control worryin = Nearly every day Worrying too much about different things: 3 = Nearly every day Trouble relaxin = Nearly every day Being so restless that it is hard to sit still: 3 = Nearly every day Becoming easily annoyed or irritable: 3 = Nearly every day Feeling afraid as if something awful might happen: 3 = Nearly every day Total KARLI-7 score (0-4 normal; 5-9 mild; 10-14 moderate; 15-21 severe): 21 Source: Developed by Drs. Anish Alex, Ashleigh Dow, Jeremy Davis and colleagues, with an educational diego from [employer] KARLI-7 Assessment Billing KARLI-7 Assessment Tool: KARLI-7 Assessment 08081 Review of Systems Const Details: Const Denies chills, Denies fatigue, Denies fever(s), Denies headache(s) and Denies weakness ENT Denies dizziness and Denies headache(s) Card Denies chest pain, Denies lightheadedness, Denies dyspnea and Denies other (Palpitations) Resp Denies cough, Denies dyspnea, Denies wheezing and Denies other ( shortness of breath) GI Denies abdominal pain, Denies melena, Denies hematochezia, Denies change in bowel habits, Denies dyspepsia and Denies nausea Denies hematuria and Denies dysuria Musc Denies abnormal gait, Denies myalgias, Denies arthralgias, Denies numbness and Denies tingling Skin/Breast Denies rash, Denies unusual bruising and Denies wounds Neuro Denies abnormal gait, Denies dizziness, Denies headache(s), Denies memory loss, Denies numbness, Denies Sensory deficit (Neuro), Denies tingling and Denies weakness Psych Reports anxiety, Reports depression depression, Denies memory loss Endo Denies cold intolerance, Denies fatigue, Denies heat intolerance, Denies polydipsia and Denies polyuria Aller/Immun Denies wheezing Physical exam (Primary Care) Vital Signs: Last Vital Signs Temp 98.5 F 09/15/24 13:51 Pulse 54 09/15/24 13:51 Resp 16 09/15/24 13:51 BP 173/91 H 09/15/24 13:51 Pulse Ox 98 09/15/24 13:51 Oxygen Delivery Method Room Air 09/15/24 13:51 BMI result Body Mass Index 35.0 Tobacco/Smoking Status: Tobacco use Status Tobacco use date assessed 09/15/24 09/15/24 13:57 Patient Tobacco Use Status Former Tobacco user 09/15/24 13:47 Tobacco use type Cigarette 09/15/24 13:47 e-Cigarette/Vaping Use Former Use 09/15/24 13:47 PHQ-9: PHQ-9 Score PHQ-9: Total score 24 09/15/24 14:00 Depression Screening Interpretation: Positive Depression Screening Follow-up: Existing condition, In treatment and Change in Medication Thrive Assessment: Date of Thrive Assessment Date Thrive assessed 04/19/24 09/15/24 13:47 Currently or been in a relationship where the following occur: No concerns reported Const Other: General: no acute distress and well developed Nutritional Appearance: well nourished Orientation/consciousness: patient oriented x3 HENMT Head: Yes normocephalic and Yes atraumatic Eyes General: appearance normal, both eyes and all related structures Pupils: Equal, round and reactive pupils present EOM: EOMs intact bilaterally Resp Effort & Inspection: normal respiratory effort Auscultation: clear to auscultation bilaterally Cardio Rate: regular rate Rhythm: regular rhythm Heart sounds: S1 normal heart sound present, S2 normal heart sound present, no gallops, no murmurs and no rubs GI Palpation (GI): No Abdominal aortic bruit present, Soft to palpation, nontender, No hepatosplenomegaly present and No Rebound tenderness present Auscultation: normal bowel sounds General: Yes no CVA tenderness Back/Spine/Pelvis Back: no CVA tenderness Cervical Spine: cervical ROM normal and No Cervical spine tenderness Thoracic/Lumbar Spine: thoraco-lumbar ROM normal, No pain with thoraco-lumbar ROM, No thoracic spinal tenderness and No lumbar spinal tenderness Extrem General: Yes normal to inspection, No edema and No calf tenderness Skin General: warm and dry. Normal skin color. Normal skin turgor Neuro General: patient oriented x3, gait normal and no focal neuro deficit Cranial nerves: Yes Equal, round and reactive pupils present Cognition (Neuro): normal cognition Gait exam (Neuro): Normal gait present Sensory Exam: No Sensory deficit (Neuro) Psych Appearance: grossly normal Affect: normal affect Attitude: cooperative Thought process: Normal thought process present Coding Level of Care Code Est Pt Level 4 (85357) Diagnoses Hypertension I10 Major depression F32.9 Generalized anxiety disorder F41.1 Vitamin D deficiency E55.9 Additional Codes KARLI-7 Assessment Billing - KARLI-7 Assessment Tool: KARLI-7 Assessment 56405 ([id number]) PHQ-9 - 55374 - PHQ-9 Billing: Yes ([id number]) Assessment & Plan Assessment & Plan (1) Hypertension: Code(s): I10 - Essential (primary) hypertension Category: Medical Plan: Resting blood pressure is 170/100, above goal of less than 140/90. Will increase losartan to 75 mg daily; advised to take as prescribed. Continue to take metoprolol 50 mg twice daily. Low-sodium diet encouraged. Follow-up for nurse visit for blood pressure check in 1 week and with PCP in 2 weeks for hypertension, anxiety, and depression. Return sooner with symptoms or concerns. Verbalized understanding and agreed with the plan. (2) Major depression: Code(s): F32.9 - Major depressive disorder, single episode, unspecified Category: Medical Plan: 44-year-old female presents with complaints of increased anxiety and depressive symptoms for several months. PHQ-9 and KARLI-7 scores revealed severe depression and anxiety. Will increase bupropion to 300 mg daily in the morning to target depression and buspirone to 15 mg 3 times daily as needed for anxiety. Routine exercise encouraged. Follow-up in 2 weeks or sooner with worsening or new symptoms. Verbalized understanding and agreed with the plan. (3) Generalized anxiety disorder: Code(s): F41.1 - Generalized anxiety disorder Category: Medical Plan: Plan as above. (4) Vitamin D deficiency: Code(s): E55.9 - Vitamin D deficiency, unspecified Category: Medical Plan: Previous vitamin-D level was low, 17.9. She completed a course of vitamin D3 1250 mcg weekly. Will recheck vitamin-D level and make changes as needed. Verbalized understanding and agreed with the plan. Orders: Orders Vitamin D 25-OH Total Today E55.9 - Vitamin D deficiency, unspecified Medications: New losartan Take with losartan 50 mg to equal 75 mg daily 25 mg PO DAILY 90 tabs 1RF 90 days bupropion HCl XL 300 mg PO QAM 30 tabs 3RF 30 days Changed From buspirone 15 mg PO BID 30 days 60 tabs 3RF To buspirone 15 mg PO TID PRN 90 tabs 3RF anxiety 30 days Discontinued bupropion HCl XL Discontinued Reason: Doctor's Order 150 mg PO QAM 30 tabs 3RF
[2024-09-15 13:51] VITALS: BP 173/91; PULSE 54; RESP 16; TEMP 36.9; O2SAT 98; BMI 35.0
[2024-09-15 14:20] VITALS: BP 170/100; PULSE 60
== END 2024-09-15 14:31 | disposition home or self-care (01) ==
LOC: HO.HMCFM 13:43
PROVIDERS: PCP Nurse Practitioner Family; Visit Provider Nurse Practitioner Family
DX: I10 Essential (primary) hypertension (principal); F32.9 Major depressive disorder, single episode, unspecified; F41.1 Generalized anxiety disorder; E55.9 Vitamin D deficiency, unspecified

== ENCOUNTER → 2024-09-15 13:42 | Outpatient (BNVA) | payer OTHER, SELFPAY | PROVIDERS: PCP Nurse Practitioner Family; Visit Provider Nurse Practitioner Family | DX: I10 Essential (primary) hypertension (principal); F41.1 Generalized anxiety disorder; F32.9 Major depressive disorder, single episode, unspecified; E55.9 Vitamin D deficiency, unspecified | CPT/HCPCS: 96127; 99212 ==

== ENCOUNTER 2024-09-19 10:33 | Outpatient (REF) | payer OTHER, SELFPAY ==
--- NOTE | ~2024-09-19 | US_ITS ---
CLINICAL HISTORY: R10.11 - Right upper quadrant pain US abdomen complete Comparison: None provided Findings: The visualized pancreas is normal. The aorta and inferior vena cava are normal caliber. The appearance of the liver suggests fatty infiltration. There is a hypoechoic area that may represent focal normal superior liver. There is no intrahepatic bile duct dilatation. The common duct is 5.5 mm in diameter. The gallbladder is normal. There is no sonographic Robins sign. The main portal vein is antegrade. The right kidney is 10.8 cm in length. The left kidney is 10.4 cm in length. The spleen is normal. No ascites. IMPRESSION: 1. Findings of possible hepatic steatosis with focal normal spared liver. Consider dedicated hepatic imaging with either MR or CT if patient can safely receive intravenous contrast, to confirm. This document has been electronically signed by: Tien Estrada MD on 09/20/2024 10:14:47
--- OUTSIDE RECORDS SUMMARY | 2024-09-19 10:45 | XMS_ITS | Data Portability ---
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 I would attribute this to her intranasal cocaine exposure. She is currently being treated with clindamycin and levofloxacin through the emergency department at [facility]. I have recommended the addition of mupirocin [...] mupirocin 2 % topical ointment 2023 024 [facility] #[id number], [address] [place], [address], 09/13/202 4 10:51:20 Patient TargetsNo targets recorded. Patient InstructionsNo instructions recorded. Reason for Referral None Reported. 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 Procedures Surgical History Date Name Laterality Status Provider Name and Address Organization Details Recorded Time 11/09/2023 NasalEndos copy_DP completed KATHY TELLO MD [address] [place] [address], [place], [phone], [facility] 11/08/2023 10:04:52 Imaging Results None recorded. [...] Updated DateTime 11/09/2023 160.02 cm 24.8 kg/m2 97147.93 g Catina Jones [place] [facility] 11/09/2023 10:41:07 Social History None recorded. Functional Status None recorded. Mental Status None recorded. Family History Nothing Reported. Medical History No medical history recorded. Gynecological HistoryNo gynecological history recorded. Obstetrics History GPAL:G 0 P 0 0 0 0 Past Encounters Encounter ID Performer Location Encounter Start Date Encounter Closed Date Diagnosis/Indication Diagnosis SNOMED-CT Code Diagnosis ICD10 Code Diagnosis Note [id number] KATHY TELLO MD [facility] [address] [address] 11/09/2023 10:00:32 11/09/2023 10:53:20 Ulcerative rhinitis 58653277 J34.81 Perforatio n of nasal septum 84997294 J34.89 Harmful pa ttern of use of cocaine 60720890 F14.10 Health Concerns Section Related Observation LastModified by Organization Detai ls LastModified Time None Recorded Concern Status LastModified by Organization Details LastModified Time None Recorded Advance Directives Directive None Recorded Payers Insurance Date Sequence Insurance Name Policy Number Policy Pollard Covered Member ID Pollard Member ID Guarantor Name 11/09/2023 1 [place] [facility] Paz Scott Elio [id number] Paz Scott Elio 11/09/2023 1 [facility] PLAN (MEDICAID HMO) [id number] Paz Scott Elio [id number] Paz Scott Elio Notes Date Note Type Note Provider Name and Address Organization Details Recorded Time 11/09/2023 text/html ROS as noted in the HPI feels insect in nose that spit liquidonset August 2023 R>Lhas a tooth infection - tx with 7 days of abx11/06/23 ER [facility] rx clinda and levofloxacin for nose infection intranasal cocaine twice monthly, most recently yesterdaythe cocaine 'kills the bugs that go in the skin' PCP rx keflex in using nasal saline several times daily KATHY TELLO MD [address] [place] [address], [place], [phone], [facility] - [facility] 11/09/2023 10:54:43 OBGyn Episode No OBEpisode recorded.
== END 2024-09-19 10:34 | disposition home or self-care (01) ==
LOC: HO.HMGCX 10:33
PROVIDERS: PCP Nurse Practitioner Family; Visit Provider Physician Assistant Medical
DX: R10.11 Right upper quadrant pain (principal)
CPT/HCPCS: 76700

== ENCOUNTER → 2024-09-19 10:36 | Outpatient (BNV) | payer OTHER, SELFPAY | PROVIDERS: PCP Nurse Practitioner Family; Visit Provider Specialist | DX: R10.11 Right upper quadrant pain (principal) | CPT/HCPCS: 76700 ==

== ENCOUNTER 2024-10-03 09:12 | Outpatient (REF) | payer OTHER, SELFPAY ==
[2024-10-03 11:33] LABS: MANUAL DIFF FLAG NO
[2024-10-03 11:41] LABS: Hematocrit 38.1 % (37.0-47.0); Hemoglobin 13.2 g/dl (12.0-16.0); Imm Gran Abs Auto 0.05 X10*3/uL (0.00-0.03); Imm Gran Pct Auto 0.7 % (0.0-0.4); Lymphocytes Absolute Auto 1.7 X10*3/uL (1.2-4.9); Mean Corpuscular HGB Conc 34.6 g/dl (31.0-35.0); Mean Corpuscular Hemoglobin 29.1 pg (27.0-33.0); Mean Corpuscular Volume 83.9 fL (80.0-98.0); NRBC Abs Auto 0.000 X10*3/uL (0.0-0.012); NRBC Pct Auto 0.0 /100WBC (0.0-0.2); Platelet Count 302 X10*3/uL (160-400); Red Blood Count 4.54 X10*6/uL (4.20-5.50); White Blood Count 7.1 X10*3/uL (4.8-10.8)
[2024-10-03 12:11] LABS: Alanine Aminotransferase 32 U/L (0-31); Albumin Level 5.0 g/dL (3.5-5.0); Alkaline Phosphatase 77 U/L (39-117); Anion Gap 14 (12-20); Aspartate Amino Transferase 24 U/L (5-31); Blood Urea Nitrogen 7 mg/dL (9-16); Calcium 9.0 mg/dL (8.4-10.2); Carbon Dioxide 26 mmol/L (22-29); Chloride 107 mmol/L (96-108); Cholesterol 211 mg/dL (<200); Estimated Glomerular Filt Rate > 60; HDL Cholesterol 49 mg/dL (>40); Potassium 3.7 mmol/L (3.3-5.1); Sodium 143 mmol/L (135-145); Total Protein 7.6 g/dL (6.5-8.0); Triglycerides 103 mg/dL (<150)
[2024-10-03 14:46] LABS: Appearance Urine Clear; Glucose Urine UA Negative (Negative); PH 6.5 (5.0-9.0); Specific Gravity - Urine 1.020 (1.005-1.025); UMIC TRIGGER UACC YES
[2024-10-03 15:36] LABS: Microalbum/Creatinine Ratio Ur 38.0 ug/mg cr (<30)
== END 2024-10-03 09:13 | disposition home or self-care (01) ==
LOC: HO.WFDLDS 09:12
PROVIDERS: PCP Nurse Practitioner Family; Visit Provider Nurse Practitioner Family
DX: E55.9 Vitamin D deficiency, unspecified (principal); I10 Essential (primary) hypertension; F32.9 Major depressive disorder, single episode, unspecified; F41.1 Generalized anxiety disorder; Z87.891 Personal history of nicotine dependence; Z79.899 Other long term (current) drug therapy; Z00.00 Encounter for general adult medical examination without abnormal findings
CPT/HCPCS: 36415; 80053; 80061; 81001; 82043; 82306; 82570; 84443; 85025; 96127; 99212

== ENCOUNTER 2024-10-03 09:12 | Outpatient (AMB) | payer OTHER, SELFPAY ==
--- NOTE | 2024-10-03 09:15 | MHC.PC.OV ---
Vital Signs 10/03/24 09:22 10/03/24 09:46 Height 5 ft 4 in Weight 200 lb 2 oz BMI 34.3 BP 164/72 H 170/90 H Blood Pressure Location Lt brachial Rt brachial Position Sitting Sitting Pulse 48 L 56 Pulse Source Pulse Oximeter Auscultation Temp 97.6 F Temp Source Temporal Artery Scan Pulse Oximetry (%) 97 Oxygen Delivery Method Room Air Intake Visit Reasons: 2 wk PCP HTN, anxiety, depression Intake Note: Paz presents in the office today for a 2 week follow up to hypertension, anxiety and depression. Allergies bee pollen (BEE STINGS) Allergy (Severe, Verified 10/03/24 09:30) ANAPHYLAXIS animal dander Allergy (Intermediate, Verified 10/03/24 09:30) Cough Medication List - Last Reconciled 10/03/24 by Guillaume Sadler CNP acetaminophen (Tylenol Extra Strength) 1,000 mg PO TID PRN albuterol sulfate 90 mcg/actuation 1 inh inhalation Q4-6H PRN bupropion HCl XL 300 mg PO QAM 30 days buspirone 15 mg PO TID losartan 100 mg PO DAILY 90 days metoprolol tartrate 50 mg PO BID omeprazole 20 mg PO DAILY 90 days Tobacco use date assessed: 10/03/24 Dental Screening Dental Screen Date: 10/03/24 Did you have a dental visit in the last 12 months?: Yes Did you have a dental problem in the last 6 months where you did not have access to dental care?: No Was dental information given to patient?: Patient has dentist HPI HPI Comments History of Present Illness Details 44-year-old female presents for hypertension, anxiety, and depression follow-up. She admits to taking her medications as prescribed without adverse reactions. She notes that her anxiety and depressive symptoms have been the same for the past 1 years. She notes that she has not been able to live her house or do anything. She sometimes feel like there is something in her lungs and sometimes experiences wheezing. She notes that she was on bupropion 450 mg daily which was helpful. She denies SI/HI/AH/VH. [facility] Medical History (Updated 09/22/24 @ 15:21 by DI Rose) Abnormal liver ultrasound Right upper quadrant pain Chronic low back pain Low back pain Abdominal pain Laceration of liver Osteoarthritis, hand Elevation of levels of liver transaminase levels Asthma Depressed Surgical History Previous section Family History Mother Cirrhosis of liver Paternal Grandfather Pre-diabetes Social History (Updated 10/03/24 @ 09:21 by Margarita Paulson MA) Household Members: Spouse Housing: House Do you presently have visiting nurse or other home services: No Alcohol intake: never Patient Tobacco Use Status: Former Tobacco user Tobacco use type: Cigarette Years Smoked: Quit 10 years e-Cigarette/Vaping Use: Former Use Second Hand Smoke Exposure: No Substance Use Type: Crack/Cocaine and Heroin service: No Current occupational status: employed 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 1. Little interest or pleasure in doing things: nearly every day 2. Feeling down, depressed, or hopeless: nearly every day 3. Trouble falling or staying asleep, or sleeping too much: nearly every day 4. Feeling tired or having little energy: nearly every day 5. Poor appetite or overeating: nearly every day 6. Feeling bad about yourself - or that you are a failure or have let yourself or your family down: nearly every day 7. Trouble concentrating on things, such as reading the newspaper or watching television: nearly every day 8. Moving or speaking so slowly that other people could have noticed. Or the opposite - being so fidgety or restless that you have been moving around a lot more than usual: nearly every day 9. Thoughts that you would be better off or of hurting yourself in some way: not at all Total score: 24 Depression Screening Interpretation: Positive Depression Screening Follow-up: Existing condition, In treatment and Change in Medication Depression Screening Done: Yes 87652 - PHQ-9 Billing: Yes Source: Developed by Drs. Anish Alex, Ashleigh Dow, Jeremy Davis and colleagues, with an educational diego from [email or web address]. Thrive Questionnaire Date Thrive assessed: 10/03/24 I am a: Patient What is your living situation today?: I choose not to answer this question Within the past 12 months, did the food you bought not last and you didn't have the money to get more?: Never true Within the past 12 months, did you worry whether your food would run out before you got money to buy more?: Never true Do you have trouble paying for medicines?: No Do you have trouble getting transportation to medical appointments?: I choose not to answer this question Do you have trouble paying your heating and electricity bill?: I choose not to answer this question Do you have trouble taking care of your child, family member or friend?: I choose not to answer this question Do you have trouble with day-to-day activities such as bathing, preparing meals, shopping, managing finances, etc.?: I choose not to answer this question Are you currently unemployed and looking for a job?: I choose not to answer this question Are you interested in more education?: I choose not to answer this question Please select the resources that you would like help with: None Currently or been in a relationship where the following occur: No concerns reported THRIVE Score: 0 AUDIT C Alcohol Use Questionnaire (AUDIT-C) 1. How often do you have a drink containing alcohol?: Never 3. How often do you have six or more drinks on one occasion?: Never Total Score: 0 KARLI-7 AMB Questionnaire KARLI-7 Date KARLI - 7 assessed: 10/03/24 Feeling nervous, anxious, or on edge: 3 = Nearly every day Not being able to stop or control worryin = Nearly every day Worrying too much about different things: 3 = Nearly every day Trouble relaxin = Nearly every day Being so restless that it is hard to sit still: 3 = Nearly every day Becoming easily annoyed or irritable: 3 = Nearly every day Feeling afraid as if something awful might happen: 3 = Nearly every day Total KARLI-7 score (0-4 normal; 5-9 mild; 10-14 moderate; 15-21 severe): 21 Source: Developed by Drs. Anish Alex, Ashleigh Dow, Jeremy Davis and colleagues, with an educational diego from [employer] KARLI-7 Assessment Billing KARLI-7 Assessment Tool: KARLI-7 Assessment 49253 Review of Systems Const Details: Const Denies chills, Denies fatigue, Denies fever(s), Denies headache(s) and Denies weakness ENT Denies dizziness and Denies headache(s) Card Denies chest pain, Denies lightheadedness, Denies dyspnea and Denies other (Palpitations) Resp Denies cough, Denies dyspnea, Denies wheezing and Denies other ( shortness of breath) GI Denies abdominal pain, Denies melena, Denies hematochezia, Denies change in bowel habits, Denies dyspepsia and Denies nausea Denies hematuria and Denies dysuria Musc Denies abnormal gait, Denies myalgias, Denies arthralgias, Denies numbness and Denies tingling Skin/Breast Denies rash, Denies unusual bruising and Denies wounds Neuro Denies abnormal gait, Denies dizziness, Denies headache(s), Denies memory loss, Denies numbness, Denies Sensory deficit (Neuro), Denies tingling and Denies weakness Psych Reports anxiety, Reports depression, Denies memory loss Endo Denies cold intolerance, Denies fatigue, Denies heat intolerance, Denies polydipsia and Denies polyuria Aller/Immun Denies wheezing Physical exam (Primary Care) Vital Signs: Last Vital Signs Temp 97.6 F 10/03/24 09:22 Pulse 56 10/03/24 09:46 BP 170/90 H 10/03/24 09:46 Pulse Ox 97 10/03/24 09:22 Oxygen Delivery Method Room Air 10/03/24 09:22 BMI result Body Mass Index 34.3 Tobacco/Smoking Status: Tobacco use Status Tobacco use date assessed 10/03/24 10/03/24 09:27 Patient Tobacco Use Status Former Tobacco user 10/03/24 09:21 Tobacco use type Cigarette 10/03/24 09:21 e-Cigarette/Vaping Use Former Use 10/03/24 09:21 PHQ-9: PHQ-9 Score PHQ-9: Total score 24 10/03/24 09:27 Depression Screening Interpretation: Positive Depression Screening Follow-up: Existing condition, In treatment and Change in Medication Thrive Assessment: Date of Thrive Assessment Date Thrive assessed 10/03/24 10/03/24 09:27 Currently or been in a relationship where the following occur: No concerns reported Const Other: General: no acute distress and well developed Nutritional Appearance: well nourished Orientation/consciousness: patient oriented x3 [facility] Head: Yes normocephalic and Yes atraumatic Eyes General: appearance normal, both eyes and all related structures Pupils: Equal, round and reactive pupils present EOM: EOMs intact bilaterally Resp Effort & Inspection: normal respiratory effort Auscultation: clear to auscultation bilaterally Cardio Rate: regular rate Rhythm: regular rhythm Heart sounds: S1 normal heart sound present, S2 normal heart sound present, no gallops, no murmurs and no rubs GI Palpation (GI): No Abdominal aortic bruit present, Soft to palpation, nontender, No hepatosplenomegaly present and No Rebound tenderness present Auscultation: normal bowel sounds General: Yes no CVA tenderness Back/Spine/Pelvis Back: no CVA tenderness Cervical Spine: cervical ROM normal and No Cervical spine tenderness Thoracic/Lumbar Spine: thoraco-lumbar ROM normal, No pain with thoraco-lumbar ROM, No thoracic spinal tenderness and No lumbar spinal tenderness Extrem General: Yes normal to inspection, No edema and No calf tenderness Skin General: warm and dry. Normal skin color. Normal skin turgor Neuro General: patient oriented x3, gait normal and no focal neuro deficit Cranial nerves: Yes Equal, round and reactive pupils present Cognition (Neuro): normal cognition Gait exam (Neuro): Normal gait present Sensory Exam: No Sensory deficit (Neuro) Psych Appearance: grossly normal Affect: normal affect Attitude: cooperative Thought process: Normal thought process present Coding Level of Care Code Est Pt Level 4 (31568) Diagnoses Hypertension I10 Major depression F32.9 Generalized anxiety disorder F41.1 Additional Codes KARLI-7 Assessment Billing - KARLI-7 Assessment Tool: KARLI-7 Assessment 59903 ([id number]) PHQ-9 - 46079 - PHQ-9 Billing: Yes ([id number]) Assessment & Plan Assessment & Plan (1) Hypertension: Code(s): I10 - Essential (primary) hypertension Category: Medical Plan: Resting blood pressure is 170/90, above goal of less than 140/90. Clonidine 0.1 mg twice daily ordered; advised to take as prescribed. Instructed on the risks, benefits, and potential adverse reactions of the medication. Low-sodium diet encouraged. Blood pressure monitor ordered. Advised to check blood pressure twice daily, 2-3 times weekly, record readings, and bring to next appointment. Follow-up in 2 weeks or sooner with symptoms or concerns. Verbalized understanding and agreed with plan. (2) Major depression: Code(s): F32.9 - Major depressive disorder, single episode, unspecified Category: Medical Plan: She notes that her anxiety and depressive symptoms have been the same for the past 1 years. She notes that she has not been able to live her house or do anything. She sometimes feel like there is something in her lungs and sometimes experiences wheezing. She notes that she was on bupropion 450 mg daily which was helpful. She denies SI/HI/AH/VH. PHQ-9 and KARLI-7 scores revealed severe depression and anxiety. Bupropion increased to 450 routine mg daily; advised to take as prescribed. She will likely benefit from the antianxiety effect of clonidine. Routine exercise encouraged. Chest x-ray ordered. Follow-up in 2 weeks or sooner with worsening or new symptoms. Verbalized understanding and agreed with the plan. (3) Generalized anxiety disorder: Code(s): F41.1 - Generalized anxiety disorder Category: Medical Plan: Plan as above. Orders: Orders XR chest 2V 10/03/24 F41.1 - Generalized anxiety disorder Medications: New bupropion HCl XL 450 mg PO QAM 30 tabs 3RF 30 days clonidine HCl 0.1 mg PO BID 60 tabs 3RF 30 days miscellaneous medical supply 1 large BP monitor/cuff 1 ea 0RF I10 - Essential (primary) hypertension miscellaneous medical supply 1 large BP monitor/cuff 1 ea 0RF I10 - Essential (primary) hypertension Changed From metoprolol tartrate 50 mg PO Q12H 90 days 180 tabs 0RF To metoprolol tartrate 50 mg PO BID From buspirone 15 mg PO TID 30 days PRN 90 tabs 3RF anxiety To buspirone 15 mg PO TID Discontinued bupropion HCl XL Discontinued Reason: Doctor's Order 300 mg PO QAM 30 days 30 tabs 3RF Patient Instructions: Advised to perform vitamin-D, fasting lipid panel, and urine microalbumin lab work before next visit.
[2024-10-03 09:22] VITALS: BP 164/72; PULSE 48; TEMP 36.4; O2SAT 97; BMI 34.3
[2024-10-03 09:46] VITALS: BP 170/90; PULSE 56
== END 2024-10-03 09:51 | disposition home or self-care (01) ==
LOC: HO.HMCFM 09:13
PROVIDERS: PCP Nurse Practitioner Family; Visit Provider Nurse Practitioner Family
DX: I10 Essential (primary) hypertension (principal); F32.9 Major depressive disorder, single episode, unspecified; F41.1 Generalized anxiety disorder

== ENCOUNTER → 2024-10-04 17:00 | Outpatient (BNV) | payer OTHER, SELFPAY | PROVIDERS: PCP Nurse Practitioner Family; Visit Provider Radiology Diagnostic Radiology | DX: K76.89 Other specified diseases of liver (principal) | CPT/HCPCS: 74183 ==

== ENCOUNTER 2024-10-04 17:02 | Outpatient (REF) | payer OTHER, SELFPAY ==
--- NOTE | ~2024-10-04 | MR_ITS ---
EXAMINATION: MR ABDOMEN WITHOUT THEN WITH IV CONTRAST HISTORY: R93.2 - Abnormal findings on diagnostic imaging of liver and biliary tract COMPARISON: Comparison is made with the prior examination dated 10/15/2019. Correlation is also made with an abdominal ultrasound dated 09/19/2024. TECHNIQUE: Axial in and out of phase T1-weighted gradient echo, axial diffusion weighted, and axial and coronal HASTE T2 with fat saturation images were obtained through the abdomen. Subsequently, fat suppressed axial and coronal T1-weighted images were obtained after the intravenous administration of 10 mL Gadavist. FINDINGS: Several of the sequences are degraded by patient motion. Liver: There is no significant loss of signal intensity in the liver on opposed phase imaging to suggest steatosis. Again seen is a mass in segment IV which measures 3.5 x 3.2 x 3.3 cm in size, slightly larger than on the prior study (previously 2.8 x 2.5 x 2.6 cm). The mass is mildly T2 hyperintense and isointense on T1. There is intense arterial enhancement, except for a central scar which is T2 hyperintense. Delayed images demonstrate persistent enhancement of the lesion, as well as enhancement of the central scar. Findings are consistent with focal nodular hyperplasia (FNH). The hepatic and portal veins are patent. There is no intrahepatic biliary dilatation. Gallbladder/biliary tree: No gallstones are identified. The common bile duct is normal in caliber. No intraluminal filling defects are identified to suggest choledocholithiasis. Spleen: The spleen is unremarkable. Pancreas: Again seen is a 3 mm cyst of the pancreatic tail. There is no enhancing pancreatic mass. The pancreatic duct is normal in caliber. Adrenals: The adrenal glands are unremarkable. Kidneys: The kidneys are unremarkable. There is no hydronephrosis. Lymph nodes: There is no retroperitoneal lymphadenopathy in the upper abdomen. Fluid: There is no ascites in the upper abdomen. Visualized bowel: The visualized small and large bowel loops are unremarkable in appearance. Visualized bones: The visualized bones demonstrate normal marrow signal intensity. MR/MR abdomen wo/w con IMPRESSION: 3.5 x 3.2 x 3.3 cm focal nodular hyperplasia in the left lobe of the liver which is slightly larger than on the prior study. Electronically signed by: Anish Moreno MD 10/06/2024 07:58 AM EDT RP
== END 2024-10-04 17:03 | disposition home or self-care (01) ==
LOC: HO.MRI 17:02
PROVIDERS: PCP Nurse Practitioner Family; Visit Provider Physician Assistant Medical
DX: R93.2 Abnormal findings on diagnostic imaging of liver and biliary tract (principal)
CPT/HCPCS: 74183; A9585

== ENCOUNTER 2024-10-21 10:01 | Outpatient (AMB) | payer OTHER, SELFPAY ==
--- NOTE | 2024-10-21 10:09 | A.OFFPC_ITS ---
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 Required: No Is last menstrual period known: No Post menopausal: No Patient : No Allergies bee pollen (BEE STINGS) Allergy (Severe, Verified 10/21/24 10:28) ANAPHYLAXIS animal dander Allergy (Intermediate, Verified 10/21/24 10:28) Cough Medication List - Last Reconciled 10/21/24 by Guillaume Sadler CNP acetaminophen (Tylenol Extra Strength) 1,000 mg PO TID PRN albuterol sulfate 90 mcg/actuation 1 inh inhalation Q4-6H PRN bupropion HCl XL 150 mg PO QAM bupropion HCl XL 300 mg PO QAM 30 days buspirone 15 mg PO TID cholecalciferol (vitamin D3) 25 mcg PO DAILY 90 days clonidine HCl 0.1 mg PO BID 30 days losartan 100 mg PO DAILY 90 days metoprolol tartrate 50 mg PO BID miscellaneous medical supply 1 large BP monitor/cuff omeprazole 20 mg PO DAILY 90 days Tobacco use date assessed: 10/21/24 Dental Screening Dental Screen Date: 10/21/24 Did you have a dental visit in the last 12 months?: Yes Did you have a dental problem in the last 6 months where you did not have access to dental care?: No Was dental information given to patient?: Patient has dentist HPI HPI Comments History of Present Illness Details 44-year-old female presents for hyperten chapito, anxiety, depression, and recent labs review follow-up. She admits to taking her medications as prescribed without adverse reactions. She has been making healthy dietary choices. She walks regularly. Reports severe depression and moderate anxiety. She continues to experience poor sleep; she has difficulty falling and staying asleep and sleeps an average of 2- 4 hours nightly. No acute symptoms at this time. [facility] Medical History (Updated 10/07/24 @ 10:09 by DI Rose) Pancreas cyst Focal nodular hyperplasia of liver Abnormal liver ultrasound Right upper quadrant pain Chronic low back pain Low back pain Abdominal pain Laceration of liver Osteoarthritis, hand Elevation of levels of liver transaminase levels Asthma Depressed Surgical History Previous section Family History Mother Cirrhosis of liver Paternal Grandfather Pre-diabetes Social History (Updated 10/03/24 @ 09:21 by Margarita Paulson MA) Household Members: Spouse Housing: House Do you presently have visiting nurse or other home services: No 75 years or older and lives alone: No Alcohol intake: never Patient Tobacco Use Status: Former Tobacco user Tobacco use type: Cigarette Years Smoked: Quit 10 years e-Cigarette/Vaping Use: Former Use Second Hand Smoke Exposure: No Substance Use Type: Crack/Cocaine and Heroin service: No Current occupational status: employed Current occupation: [employer] Current occupational exposures/hazards: Yes Cognitive needs: No Hearing needs: No Vision needs: No Questionnaire PHQ-9 Over the last 2 weeks, how often have you been bothered by any of the following problems? 1. Little interest or pleasure in doing things: nearly every day 2. Feeling down, depressed, or hopeless: nearly every day 3. Trouble falling or staying asleep, or sleeping too much: nearly every day 4. Feeling tired or having little energy: nearly every day 5. Poor appetite or overeating: nearly every day 6. Feeling bad about yourself - or that you are a failure or have let yourself or your family down: more than half the days 7. Trouble concentrating on things, such as reading the newspaper or watching television: nearly every day 8. Moving or speaking so slowly that other people could have noticed. Or the opposite - being so fidgety or restless that you have been moving around a lot more than usual: nearly every day 9. Thoughts that you would be better off or of hurting yourself in some way: not at all Total score: 23 Depression Screening Interpretation: Positive Depression Screening Follow-up: Existing condition, In treatment and New Medication prescribed Depression Screening Done: Yes 07962 - PHQ-9 Billing: Yes Source: Developed by Drs. Anish Alex, Ashleigh B.Jeremy Chapin and colleagues, with an educational diego from [employer]. Thrive Questionnaire Date Thrive assessed: 04/19/24 I am a: Patient What is your living situation today?: I choose not to answer this question Within the past 12 months, did the food you bought not last and you didn't have the money to get more?: Never true Within the past 12 months, did you worry whether your food would run out before you got money to buy more?: Never true Do you have trouble paying for medicines?: No Do you have trouble getting transportation to medical appointments?: I choose not to answer this question Do you have trouble paying your heating and electricity bill?: I choose not to answer this question Do you have trouble taking care of your child, family member or friend?: I choose not to answer this question Do you have trouble with day-to-day activities such as bathing, preparing meals, shopping, managing finances, etc.?: I choose not to answer this question Are you currently unemployed and looking for a job?: I choose not to answer this question Are you interested in more education?: I choose not to answer this question Please select the resources that you would like help with: None Currently or been in a relationship where the following occur: No concerns reported THRIVE Score: 0 KARLI-7 AMB Questionnaire KARLI-7 Date KARLI - 7 assessed: 10/21/24 Feeling nervous, anxious, or on edge: 2 = More than half the days Not being able to stop or control worryin = More than half the days Worrying too much about different things: 2 = More than half the days Trouble relaxin = Several days Being so restless that it is hard to sit still: 1 = Several days Becoming easily annoyed or irritable: 3 = Nearly every day Feeling afraid as if something awful might happen: 3 = Nearly every day Total KARLI-7 score (0-4 normal; 5-9 mild; 10-14 moderate; 15-21 severe): 14 Source: Developed by Drs. Anish Alex, Jeremy Lindsey and colleagues, with an educational diego from [employer]. KARLI-7 Assessment Billing KARLI-7 Assessment Tool: KARLI-7 Assessment 04824 Review of Systems Const Details: Const Denies chills, Denies fatigue, Denies fever(s), Denies headache(s) and Denies weakness ENT Denies dizziness and Denies headache(s) Card Denies chest pain, Denies lightheadedness, Denies dyspnea and Denies other (Palpitations) Resp Denies cough, Denies dyspnea, Denies wheezing and Denies other ( shortness of breath) GI Denies abdominal pain, Denies melena, Denies hematochezia, Denies change in bowel habits, Denies dyspepsia and Denies nausea Denies hematuria and Denies dysuria Musc Denies abnormal gait, Denies myalgias, Denies arthralgias, Denies numbness and Denies tingling Skin/Breast Denies rash, Denies unusual bruising and Denies wounds Neuro Denies abnormal gait, Denies dizziness, Denies headache(s), Denies memory loss, Denies numbness, Denies Sensory deficit (Neuro), Denies tingling and Denies weakness Psych Reports anxiety, Reports depression, Denies memory loss Endo Denies cold intolerance, Denies fatigue, Denies heat intolerance, Denies polydipsia and Denies polyuria Aller/Immun Denies wheezing Physical exam (Primary Care) Tobacco/Smoking Status: Tobacco use Status Tobacco use date assessed 10/03/24 10/03/24 09:27 Patient Tobacco Use Status Former Tobacco user 10/03/24 09:21 Tobacco use type Cigarette 10/03/24 09:21 e-Cigarette/Vaping Use Former Use 10/03/24 09:21 Depression Screening Interpretation: Positive Depression Screening Follow-up: Existing condition, In treatment and New Medication prescribed Thrive Assessment: Date of Thrive Assessment Date Thrive assessed 04/19/24 10/18/24 18:51 Currently or been in a relationship where the following occur: No concerns reported Const Other: General: no acute distress and well developed Nutritional Appearance: well nourished Orientation/consciousness: patient oriented x3 HENMT Head: Yes normocephalic and Yes atraumatic Eyes General: appearance normal, both eyes and all related structures Pupils: Equal, round and reactive pupils present EOM: EOMs intact bilaterally Resp Effort & Inspection: normal respiratory effort Auscultation: clear to auscultation bilaterally Cardio Rate: regular rate Rhythm: regular rhythm Heart sounds: S1 normal heart sound present, S2 normal heart sound present, no gallops, no murmurs and no rubs GI Palpation (GI): No Abdominal aortic bruit present, Soft to palpation, nontender, No hepatosplenomegaly present and No Rebound tenderness present Auscultation: normal bowel sounds General: Yes no CVA tenderness Back/Spine/Pelvis Back: no CVA tenderness Cervical Spine: cervical ROM normal and No Cervical spine tenderness Thoracic/Lumbar Spine: thoraco-lumbar ROM normal, No pain with thoraco-lumbar ROM, No thoracic spinal tenderness and No lumbar spinal tenderness Extrem General: Yes normal to inspection, No edema and No calf tenderness Skin General: warm and dry. Normal skin color. Normal skin turgor Neuro General: patient oriented x3, gait normal and no focal neuro deficit Cranial nerves: Yes Equal, round and reactive pupils present Cognition (Neuro): normal cognition Gait exam (Neuro): Normal gait present Sensory Exam: No Sensory deficit (Neuro) Psych Appearance: grossly normal Affect: normal affect Attitude: cooperative Thought process: Normal thought process present Coding Level of Care Code Est Pt Level 4 (81942) Diagnoses Hypertension I10 Generalized anxiety disorder F41.1 Sleep disturbance G47.9 Major depression F32.9 Hypercholesterolemia E78.00 Vitamin D deficiency E55.9 Microalbuminuria R80.9 Additional Codes KARLI-7 Assessment Billing - KARLI-7 Assessment Tool: KARLI-7 Assessment 81054 ([id number]) PHQ-9 - 90084 - PHQ-9 Billing: Yes ([id number]) Assessment & Plan Assessment & Plan (1) Hypertension: Code(s): I10 - Essential (primary) hypertension Category: Medical Plan: Blood pressure is 136/65, within goal of less than 140/90. Continue current treatment regimen. Low-sodium diet encouraged. Follow-up in 2 months or sooner with symptoms or concerns. Verbalized understanding and agreed with the plan. (2) Generalized anxiety disorder: Code(s): F41.1 - Generalized anxiety disorder Category: Medical Plan: Reports severe depression and moderate anxiety. She continues to experience poor sleep; she has difficulty falling and staying asleep and sleeps an average of 2- 4 hours nightly. PHQ-9 and KARLI-7 scores revealed severe depression and moderate anxiety respectively. Will start Trazodone 50 mg daily at bedtime as needed for sleep; advised to take as prescribed. Instructed on the risks, benefits, and potential adverse reactions of the medication. Continue current treatment regimen. Routine exercise encouraged. Follow-up in 2 months or sooner with symptoms or concerns. Verbalized understanding and agreed with the plan. (3) Sleep disturbance: Code(s): G47.9 - Sleep disorder, unspecified Category: Medical Plan: Plan as above. (4) Major depression: Code(s): F32.9 - Major depressive disorder, single episode, unspecified Category: Medical Plan: Plan as above. (5) Hypercholesterolemia: Code(s): E78.00 - Pure hypercholesterolemia, unspecified Category: Medical Plan: Recent total cholesterol and LDL levels are elevated, 211 and 142 respectively. Triglycerides and HDL levels are normal. Previous total cholesterol and LDL levels 220 and 132 respectively. Advised to limit foods high in saturated fat and avoid foods high in trans fat. Routine exercise encouraged. Fast for 10-12 hours, may drink water, and perform lipid panel blood work 2-3 days before next visit. Follow-up in 2 months. Return sooner with symptoms or concerns. Verbalized understanding and agreed with the treatment plan. (6) Vitamin D deficiency: Code(s): E55.9 - Vitamin D deficiency, unspecified Category: Medical Plan: Recent vitamin-D level is slightly low, 28.4. Recently started on vitamin D3 25 mcg daily; advised to continue to take as prescribed. Informed that the sun is a good source of vitamin-D Will recheck vitamin-D level in 2 months. Verbalized understanding and agreed with the plan. (7) Microalbuminuria: Code(s): R80.9 - Proteinuria, unspecified Category: Medical Plan: Recent urine microalbumin level is slightly elevated, 38.0. Likely dehydration. Adequate hydration encouraged. Will recheck urine microalbumin level in 2 months. Verbalized understanding and agreed with the plan. Orders: Orders Lipid Panel 2 Months E78.00 - Pure hypercholesterolemia, unspecified Vitamin D 25-OH Total 2 Months E55.9 - Vitamin D deficiency, unspecified Microalbumin, Random (w Creat) 2 Months R80.9 - Proteinuria, unspecified Medications: New trazodone 50 mg PO BEDTIME PRN 30 tabs 3RF sleep
[2024-10-21 10:14] VITALS: BP 136/65; PULSE 68; RESP 16; TEMP 37.1; O2SAT 98; BMI 33.7
== END 2024-10-21 12:14 | disposition home or self-care (01) ==
LOC: HO.HMCFM 10:02
PROVIDERS: PCP Nurse Practitioner Family; Visit Provider Nurse Practitioner Family
DX: I10 Essential (primary) hypertension (principal); F41.1 Generalized anxiety disorder; G47.9 Sleep disorder, unspecified; F32.9 Major depressive disorder, single episode, unspecified; E78.00 Pure hypercholesterolemia, unspecified; E55.9 Vitamin D deficiency, unspecified; R80.9 Proteinuria, unspecified

== ENCOUNTER → 2024-10-21 10:01 | Outpatient (BNVA) | payer OTHER, SELFPAY | PROVIDERS: PCP Nurse Practitioner Family; Visit Provider Nurse Practitioner Family | DX: I10 Essential (primary) hypertension (principal); F32.A Depression, unspecified; F41.1 Generalized anxiety disorder; F32.9 Major depressive disorder, single episode, unspecified; E78.00 Pure hypercholesterolemia, unspecified; E55.9 Vitamin D deficiency, unspecified; R80.9 Proteinuria, unspecified | CPT/HCPCS: 96127; 99212 ==

== ENCOUNTER 2024-12-02 13:16 | Outpatient (AMB) | payer OTHER, SELFPAY ==
--- NOTE | 2024-12-02 13:19 | MHC.PC.OV ---
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 Is last menstrual period known: No Post menopausal: No Patient : No Allergies bee pollen (BEE STINGS) Allergy (Severe, Verified 12/02/24 13:32) ANAPHYLAXIS animal dander Allergy (Intermediate, Verified 12/02/24 13:32) Cough Medication List - Last Reconciled 12/02/24 by Guillaume Sadler CNP acetaminophen (Tylenol Extra Strength) 1,000 mg PO TID PRN albuterol sulfate 90 mcg/actuation 1 inh inhalation Q4-6H PRN bupropion HCl XL 150 mg PO QAM bupropion HCl XL 300 mg PO QAM 30 days buspirone 15 mg PO TID cholecalciferol (vitamin D3) 25 mcg PO DAILY 90 days clonidine HCl 0.1 mg PO BID 30 days losartan 100 mg PO DAILY 90 days metoprolol tartrate 50 mg PO BID miscellaneous medical supply 1 large BP monitor/cuff omeprazole 20 mg PO DAILY 90 days trazodone 50 mg PO BEDTIME PRN Tobacco use date assessed: 12/02/24 Dental Screening Dental Screen Date: 12/02/24 Did you have a dental visit in the last 12 months?: Yes Did you have a dental problem in the last 6 months where you did not have access to dental care?: No Was dental information given to patient?: Patient has dentist HPI HPI Comments History of Present Illness Details 44-year-old female presents for ED discharge follow-up. She was evaluated at [facility] ED on 11/02/2024 for concern for foreign body in her left thigh. She noted she had been feeling something coming in and out of her left thigh for the past few months. She shared a video which revealed punctate white object sticking from the lateral left thigh. Noted she blew her nose and similar white foreign body came out. She noted associated worsening shortness of breath for the past few weeks. Labs were reassuring. No eosinophilia on CBC with differential. HIV was negative and therefore no concern for immunocompromised. CT of head was unremarkable. Chest x-ray was likewise unremarkable. Patient was unable to provide stool sample for parasite and over evaluation. She was discharged home with PCP follow-up for possible stool sample evaluation. She was started on Ivermectin. She notes that she has been passing worms from her legs and stools since discharge from the ED. She took all of her medications but clonidine this morning. No acute symptoms at this time. [facility] Medical History (Updated 12/02/24 @ 14:27 by Guillaume Sadler CNP) Pancreas cyst Focal nodular hyperplasia of liver Abnormal liver ultrasound Right upper quadrant pain Chronic low back pain Low back pain Abdominal pain Laceration of liver Osteoarthritis, hand Elevation of levels of liver transaminase levels Asthma Depressed Surgical History Previous section Family History Mother Cirrhosis of liver Paternal Grandfather Pre-diabetes Social History (Updated 10/03/24 @ 09:21 by Margarita Paulson MA) Household Members: Spouse Housing: House Do you presently have visiting nurse or other home services: No 75 years or older and lives alone: No Alcohol intake: never Patient Tobacco Use Status: Former Tobacco user Tobacco use type: Cigarette Years Smoked: Quit 10 years e-Cigarette/Vaping Use: Former Use Second Hand Smoke Exposure: No Substance Use Type: Crack/Cocaine and Heroin Patient : No service: No Current occupational status: employed 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 Current occupational exposures/hazards: Yes Cognitive needs: No Hearing needs: No Vision needs: No Questionnaire Thrive Questionnaire Date Thrive assessed: 04/19/24 I am a: Patient What is your living situation today?: I choose not to answer this question Within the past 12 months, did the food you bought not last and you didn't have the money to get more?: Never true Within the past 12 months, did you worry whether your food would run out before you got money to buy more?: Never true Do you have trouble paying for medicines?: No Do you have trouble getting transportation to medical appointments?: I choose not to answer this question Do you have trouble paying your heating and electricity bill?: I choose not to answer this question Do you have trouble taking care of your child, family member or friend?: I choose not to answer this question Do you have trouble with day-to-day activities such as bathing, preparing meals, shopping, managing finances, etc.?: I choose not to answer this question Are you currently unemployed and looking for a job?: I choose not to answer this question Are you interested in more education?: I choose not to answer this question Please select the resources that you would like help with: None Currently or been in a relationship where the following occur: No concerns reported THRIVE Score: 0 KARLI-7 AMB Questionnaire KARLI-7 Date KARLI - 7 assessed: 10/21/24 Source: Developed by Drs. Anish Alex, Ashleigh Dow, Jeremy Davis and colleagues, with an educational diego from [employer]. Review of Systems Const Details: Const Denies chills, Denies fatigue, Denies fever(s), Denies headache(s) and Denies weakness ENT Denies dizziness and Denies headache(s) Card Denies chest pain, Denies lightheadedness, Denies dyspnea and Denies other (Palpitations) Resp Denies cough, Denies dyspnea, Denies wheezing and Denies other ( shortness of breath) GI Denies abdominal pain, Denies melena, Denies hematochezia, Denies change in bowel habits, Denies dyspepsia and Denies nausea Denies hematuria and Denies dysuria Musc Denies abnormal gait, Denies myalgias, Denies arthralgias, Denies numbness and Denies tingling Skin/Breast Denies rash, Denies unusual bruising and Denies wounds Neuro Denies abnormal gait, Denies dizziness, Denies headache(s), Denies memory loss, Denies numbness, Denies Sensory deficit (Neuro), Denies tingling and Denies weakness Psych Denies anxiety, Denies depression, Denies memory loss Endo Denies cold intolerance, Denies fatigue, Denies heat intolerance, Denies polydipsia and Denies polyuria Aller/Immun Denies wheezing Physical exam (Primary Care) Vital Signs: Last Vital Signs Temp 98.1 F 12/02/24 13:23 Pulse 56 12/02/24 13:47 Resp 16 12/02/24 13:23 BP 180/90 H 12/02/24 13:47 Pulse Ox 97 12/02/24 13:23 Oxygen Delivery Method Room Air 12/02/24 13:23 BMI result Body Mass Index 33.4 Tobacco/Smoking Status: Tobacco use Status Tobacco use date assessed 12/02/24 12/02/24 13:26 Patient Tobacco Use Status Former Tobacco user 12/02/24 13:26 Tobacco use type Cigarette 12/02/24 13:26 e-Cigarette/Vaping Use Former Use 12/02/24 13:26 Thrive Assessment: Date of Thrive Assessment Date Thrive assessed 04/19/24 12/02/24 13:26 Currently or been in a relationship where the following occur: No concerns reported Const Other: General: no acute distress and well developed Nutritional Appearance: well nourished Orientation/consciousness: patient oriented x3 HENMT Head: Yes normocephalic and Yes atraumatic Eyes General: appearance normal, both eyes and all related structures Pupils: Equal, round and reactive pupils present EOM: EOMs intact bilaterally Resp Effort & Inspection: normal respiratory effort Auscultation: clear to auscultation bilaterally Cardio Rate: regular rate Rhythm: regular rhythm Heart sounds: S1 normal heart sound present, S2 normal heart sound present, no gallops, no murmurs and no rubs GI Palpation (GI): No Abdominal aortic bruit present, Soft to palpation, nontender, No hepatosplenomegaly present and No Rebound tenderness present Auscultation: normal bowel sounds General: Yes no CVA tenderness Back/Spine/Pelvis Back: no CVA tenderness Cervical Spine: cervical ROM normal and No Cervical spine tenderness Thoracic/Lumbar Spine: thoraco-lumbar ROM normal, No pain with thoraco-lumbar ROM, No thoracic spinal tenderness and No lumbar spinal tenderness Extrem General: Yes normal to inspection, No edema and No calf tenderness Skin General: warm and dry. Normal skin color. Normal skin turgor Neuro General: patient oriented x3, gait normal and no focal neuro deficit Cranial nerves: Yes Equal, round and reactive pupils present Cognition (Neuro): normal cognition Gait exam (Neuro): Normal gait present Sensory Exam: No Sensory deficit (Neuro) Psych Appearance: grossly normal Affect: normal affect Attitude: cooperative Thought process: Normal thought process present Coding Level of Care Code Est Pt Level 4 (92529) Diagnoses Parasitic infection B89 Hospital discharge follow-up Z09 Hypertension I10 Assessment & Plan Assessment & Plan (1) Parasitic infection: Code(s): B89 - Unspecified parasitic disease Category: Medical Plan: Stool ova and parasite ordered; advised to get lab work done. Will review results and make changes as needed. Follow-up with worsening or new signs and symptoms. May referred to Infectious Disease. Verbalized understanding and agreed with the plan. (2) Hospital discharge follow-up: Code(s): Z09 - Encounter for follow-up examination after completed treatment for conditions other than malignant neoplasm Category: Medical Plan: Plan as above. (3) Hypertension: Code(s): I10 - Essential (primary) hypertension Category: Medical Plan: Resting blood pressure is 180/90, above goal of less than 140/90. Blood pressure improved to 160/84 fifteen minutes following 0.1 clonidine administration. Continue current treatment regimen. Low-sodium diet encouraged. Follow-up for a nurse visit for blood pressure check in 2 week. Verbalized understanding and agreed with the plan. Orders: Orders Ova and Parasite Today B89 - Unspecified parasitic disease
[2024-12-02 13:23] VITALS: BP 185/82; PULSE 56; RESP 16; TEMP 36.7; O2SAT 97; BMI 33.4
[2024-12-02 13:47] VITALS: BP 180/90; PULSE 56
[2024-12-02 14:24] VITALS: BP 168/84; PULSE 55
== END 2024-12-02 14:27 | disposition home or self-care (01) ==
LOC: HO.HMCFM 13:17
PROVIDERS: PCP Nurse Practitioner Family; Visit Provider Nurse Practitioner Family
DX: B89 Unspecified parasitic disease (principal); Z09 Encounter for follow-up examination after completed treatment for conditions other than malignant neoplasm; I10 Essential (primary) hypertension

== ENCOUNTER → 2024-12-02 13:16 | Outpatient (BNVA) | payer OTHER, SELFPAY | PROVIDERS: PCP Nurse Practitioner Family; Visit Provider Nurse Practitioner Family | DX: I10 Essential (primary) hypertension (principal); R06.02 Shortness of breath; B89 Unspecified parasitic disease; Z09 Encounter for follow-up examination after completed treatment for conditions other than malignant neoplasm | CPT/HCPCS: 99212 ==

== ENCOUNTER 2024-12-10 18:37 | Outpatient (REF) | payer OTHER, SELFPAY ==
--- OUTSIDE RECORDS SUMMARY | 2024-12-10 19:37 | XMS_ITS | Data Portability ---
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 I would attribute this to her intranasal cocaine exposure. She is currently being treated with clindamycin and levofloxacin through the emergency department at [facility]. I have recommended the addition of mupirocin [...] mupirocin 2 % topical ointment 2023 024 [facility] #[id number], [address] [place], [address], 09/13/202 4 10:51:20 Patient TargetsNo targets recorded. Patient InstructionsNo instructions recorded. Reason for Referral None Reported. 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 Procedures Surgical History Date Name Laterality Status Provider Name and Address Organization Details Recorded Time 11/09/2023 NasalEndos copy_DP completed KATHY TELLO MD [address] [place] [address], [place], [phone], [facility] [...] Updated DateTime 11/09/2023 160.02 cm 24.8 kg/m2 73839.93 g Catina Jones [place] [facility] Diagnosis SNOMED-CT Code Diagnosis ICD10 Code Diagnosis IMO Codes Diagnosis Note [id number] KATHY TLELO MD [facility] [address] [phone] 11/09/2023 10:00:32 11/09/2023 10:53:20 Ulcerative rhinitis 03545781 J34.81 Perforatio n of nasal septum 26139682 J34.89 Harmful pa ttern of use of cocaine 21487431 F14.10 Health Concerns Section Related Observation LastModified by Organization Detai ls LastModified Time None Recorded Concern Status LastModified by Organization Details LastModified Time None Recorded Advance Directives Directive None Recorded Payers Insurance Date Sequence Insurance Name Policy Number Policy Pollard Covered Member ID Pollard Member ID Guarantor Name 11/09/2023 1 [place] [facility] Paz Scott Elio [id number] Paz Scott Elio 11/09/2023 1 [facility] - HEALTH NET PLAN (MEDICAID HMO) [id number] Paz Scott Elio [id number] Paz Scott Ballard Notes Date Note Type Note Provider Name and Address Organization Details Recorded Time 11/09/2023 text/html ROS as noted in the HPI feels insect in nose that spit liquidonset August 2023 R>Lhas a tooth infection - tx with 7 days of abx11/06/23 ER [facility] rx clinda and levofloxacin for nose infection intranasal cocaine twice monthly, most recently yesterdaythe cocaine 'kills the bugs that go in the skin' PCP rx keflex in using nasal saline several times daily KATHY TELLO MD [address] [place] [address], [phone], [facility] - [facility] 11/09/2023 10:54:43 OBGyn Episode No OBEpisode recorded.
== END 2024-12-10 18:38 | disposition home or self-care (01) ==
LOC: HO.LNP 18:37
PROVIDERS: Visit Provider Nurse Practitioner Family
DX: B89 Unspecified parasitic disease (principal)
CPT/HCPCS: 87177; 87209